=== PATIENT | male | born 1960 | race Caucasian/White ===

== ENCOUNTER → 2017-08-19 12:42 | Outpatient (CLI) | payer MEDICARE, MEDICAID, SELFPAY ==
[2017-08-19 14:53] LABS: Free T4 (Free Thyroxine) 1.18 ng/dl (0.76-1.46); Thyroid Stimulating Hormone 1.92 uIU/ml (0.358-3.740)
[2017-08-20 18:10] LABS: Thyroid Peroxidase Antibodies 16 IU/mL (0-34)
[2017-08-23 09:02] LABS: Thyroid Stimulating Immunoglob <0.10 IU/L (0.00-0.55)
== END ==
PROVIDERS: PCP Physician Assistant; Visit Provider Otolaryngology
DX: E01.0 Iodine-deficiency related diffuse (endemic) goiter (principal); E04.9 Nontoxic goiter, unspecified
CPT/HCPCS: 36415; 84439; 84443; 84445; 86376

== ENCOUNTER 2017-08-23 09:00 | Outpatient (RCR) | payer MEDICARE, MEDICAID, SELFPAY | END 2017-08-23 15:00 | disposition home or self-care (01) | LOC: PT 09:00 | PROVIDERS: PCP Family Medicine; Visit Provider Orthopaedic Surgery Adult Reconstructive Orthopaedic Surgery | DX: M75.42 Impingement syndrome of left shoulder (principal) | CPT/HCPCS: 97035; 97110; 97140; 97163 ==

== ENCOUNTER 2018-03-13 09:00 | Outpatient (RCR) | payer MEDICARE, SELFPAY | END 2018-04-04 11:22 | disposition home or self-care (01) | LOC: PT.CARL 09:00 | PROVIDERS: Visit Provider Orthopaedic Surgery Adult Reconstructive Orthopaedic Surgery | DX: Z96.611 Presence of right artificial shoulder joint (principal) | CPT/HCPCS: 97010; 97014; 97033; 97110; 97140; 97163; 97164; G0283 ==

== ENCOUNTER 2018-04-20 08:00 | Outpatient (RCR) | payer MEDICARE, SELFPAY | END 2018-05-15 08:23 | disposition home or self-care (01) | LOC: PT.CARL 08:00 | PROVIDERS: Visit Provider Orthopaedic Surgery Adult Reconstructive Orthopaedic Surgery | DX: M25.511 Pain in right shoulder (principal) | CPT/HCPCS: 97010; 97014; 97033; 97110; 97140; 97163; G0283 ==

== ENCOUNTER 2020-03-04 08:00 | Outpatient (RCR) | payer MEDICARE, SELFPAY | END 2020-03-04 09:00 | disposition home or self-care (01) | LOC: OT 08:00 | PROVIDERS: PCP Physician Assistant; Visit Provider Orthopaedic Surgery Adult Reconstructive Orthopaedic Surgery | DX: M75.102 Unspecified rotator cuff tear or rupture of left shoulder, not specified as traumatic (principal) | CPT/HCPCS: 97014; 97110; 97140; 97164; 97165; 97530; G0283 ==

== ENCOUNTER → 2020-05-12 06:40 | Outpatient (CLI) | payer MEDICARE, SELFPAY ==
--- NOTE | 2020-05-12 06:42 | US_ITS ---
APPROVED REPORT Exam Type: Ankle to Brachial Index Spike Machine Heater: RT Theresa(R) Indications Claudication: Bilaterally Rest Pain: Right Current Smoker decreased pulses bilaterally Risk Factors Diabetes Pressures/Indices Right Indices Left Indices Brachial 144.00 mmHg Brachial 131.00 mmHg Low Thigh 158.00 mmHg 1.10 Low Thigh 113.00 mmHg 0.78 Calf 148.00 mmHg 1.03 Calf 128.00 mmHg 0.89 Ankle(PT) 158.00 mmHg 1.10 Ankle(PT) 130.00 mmHg 0.90 Ankle(DP) 141.00 mmHg 0.98 Ankle(DP) 124.00 mmHg 0.86 Digit 132.00 mmHg 0.92 Digit 90.00 mmHg 0.63 Findings RT BROOK=1.1 LT BROOK=0.9 RT TBI=0.9 LT TBI=0.63 Diminished pulse on the left. Normal waveforms bilaterally Conclusion RT BROOK=1.1 LT BROOK=0.9 RT TBI=0.9 LT TBI=0.63 Diminished pulse on the left. Normal waveforms bilaterally Electronically signed by : Vishnu Aldrich MD 05/12/2020 16:06:05
== END ==
PROVIDERS: PCP Physician Assistant; Visit Provider Podiatrist
DX: R09.89 Other specified symptoms and signs involving the circulatory and respiratory systems (principal)
CPT/HCPCS: 93923

== ENCOUNTER → 2020-08-06 16:25 | Outpatient (CLI) | payer MEDICARE, SELFPAY ==
[2020-08-06 17:49] LABS: Alanine Aminotransferase 25 U/L (12-78); Albumin Level 4.3 g/dl (3.5-5.0); Albumin/Globulin Ratio 1.3 (1.1-1.8); Alkaline Phosphatase 74 U/L (38-126); Anion Gap 15.4 mEq/L (5-15); Aspartate Amino Transferase 26 U/L (17-59); Bilirubin,Total 0.7 mg/dl (0.2-1.3); Blood Urea Nitrogen 12 mg/dl (9-20); Calcium 8.8 mg/dl (8.4-10.2); Carbon Dioxide 23 mmol/L (22.0-30.0); Chloride 100 mmol/L (98-107); Chol/HDL Ratio 7.9 (1-3.5); Cholesterol 165 mg/dl (140-200); Estimated Glomerular Filt Rate 86 ml/min (>60); GFR (African American) 104 ML/MIN (>60); Globulin 3.3 g/dL (1.3-3.2); Glucose 388 mg/dl (74-100); HDL Cholesterol 21 mg/dl (40-60); Potassium 4.4 mmoL/L (3.5-5.1); Sodium 134 mmol/L (136-145); Total Protein,Serum 7.6 g/dl (6.3-8.2)
[2020-08-06 17:50] LABS: Basophils # 0.1 K/mm3 (0-0.2); Basophils % 0.8 % (0.1-2.0); Eosinophils # 1.2 K/mm3 (0.0-0.4); Eosinophils % 12.7 % (0.1-12.0); Hemoglobin 16.3 g/dL (14.1-18.0); Lymphocytes # 2.5 K/mm3 (0.7-4.5); Lymphocytes % 25.4 % (10-50); Mean Corpuscular HGB Conc 33.3 g/dL (31.8-35.4); Mean Corpuscular Hemoglobin 29.6 pg (27.0-31.2); Mean Platelet Volume 10.7 fl (7.4-10.4); Monocytes # 0.5 K/mm3 (0.1-1.0); Monocytes % 5.5 % (1.7-9.3); Neutrophils # 5.4 K/mm3 (1.8-7.8); Neutrophils % 55.5 % (37.0-80.0); Platelet Count 220 K/mm3 (142-424); Red Blood Count 5.51 M/mm3 (4.60-6.20); White Blood Count 9.6 K/mm3 (4.8-10.8)
[2020-08-06 18:01] LABS: Direct LDL Cholesterol 40.65 mg/dL (100-129)
[2020-08-06 18:09] LABS: Triglycerides 662 mg/dl (30-150)
[2020-08-06 21:49] LABS: Hemoglobin A1C 11.1 % (4.0-6.0)
== END ==
PROVIDERS: Visit Provider Internal Medicine Adolescent Medicine
DX: E11.65 Type 2 diabetes mellitus with hyperglycemia (principal); Z79.4 Long term (current) use of insulin
CPT/HCPCS: 80053; 80061; 83036; 85025

== ENCOUNTER → 2020-12-09 09:09 | Outpatient (POV) | payer MEDICARE, SELFPAY ==
[2020-12-09 09:45] VITALS: BP 142/75; PULSE 86; RESP 18; O2SAT 95; BMI 31.1
--- NOTE | 2020-12-09 09:55 | HMH.PMCON ---
Assessment and Plan (1) Osteoarthritis of right knee Status: Chronic Category: Medical Code(s): M17.11 - Unilateral primary osteoarthritis, right knee (2) Right knee pain Status: Chronic Category: Medical Code(s): M25.561 - Pain in right knee (3) Low back pain Status: Chronic Category: Medical Code(s): M54.50 - Low back pain, unspecified - Assessment and plan all Dx Assessment and Plan for all problems:: We discussed the patient's options in the clinic today. The patient has tried conservative therapies of physical therapy in the past along with continued home stretching with minimal relief. He has tried injective therapy as well as surgical intervention to his knees. We did discuss the option of spinal cord stimulation versus intrathecal therapy. Patient will review the educational information given to him today regarding spinal cord stimulation versus intrathecal therapy. He will contact the clinic after review of information to just determine a further plan of care. Patient has been instructed to contact the clinic with any concerns before the next appointment. Dr. Chatterjee has reviewed this note and agrees with this plan of care. This note was dictated using voice recognition software and make contain errors or omissions. HPI - Data of Consult Patient: new to practice Consult date: 12/09/20 Requesting Physician: Yani Shea APRN - Consult Narrative Reason for consult: Low back pain with radiation into right knee and leg History of present illness: Mr. Holcomb is a 60 year old male patient reports that he had a fall in 1999 with injury to his right knee. He underwent 5 surgical interventions to his right knee. The patient has seen multiple orthopedic surgeons in [place] as well as [facility] and was diagnosed with RSD. He has significant right knee pain with radiation into his right lower extremity with numbness and tingling. The patient also has chronic low back pain. He reports standing and walking worsen his pain to his low back. He does report a history of herniated disc many years ago with no recent imaging. He did undergo injective therapy in his back in the past with minimal relief. He has had rounds of injections to his right knee as well with no significant relief. The patient continues to have pain to both his back and knee despite conservative therapies. He has tried physical therapy in the past for greater than 6 weeks and continues with home stretching as well as ice and heat therapies. He reports he has tried Aleve as well as ibuprofen with no relief. Patient is currently managed with Percocet 10 mg 1 tablet p.o. 3 times daily as well as pregabalin 200 mg 1 tablet p.o. twice daily. The patient is diabetic but is not on any anticoagulation therapy. Patient was being seen by Dr. Neville for pain management, however says that he was not able to see the same provider when going into the clinic. Patient does take Celebrex as well at this time. He does rate his pain a 7 out of 10. CC: Yani Shea APRN [facility] History I have reviewed the patient's past medical history: Yes Medical History: Reports:: Coronary Artery Disease, Diabetes Mellitus Type 2, Hyperlipidemia, Hypertension *Have you ever received a pneumonia vaccine?: No *Have you received a flu vaccine this season?: No Other Medical History: Reports: Cataracts Laterality Cases: Right: Arthroscopy Knee, Bilateral: Other Other Surgeries: Yes: Cardiac Catheterization, Cholecystectomy, Coronary Stent, Other - *Social History Smoking Status: Current every day smoker Alcohol Intake: never Alcohol Intake Frequency:: other Substance Use Type: denies use *Occupational Status:: unemployed *Travel in the last 8 weeks: None Family Hx:: Hyperlipidemia, Hypertension, Cancer Review of Systems - Review of Systems Review of Systems General: No recent weight changes, no fever, no sleep disturbances Respiratory: No cough, n
== END ==
PROVIDERS: Visit Provider Clinical Nurse Specialist Family Health
DX: M17.11 Unilateral primary osteoarthritis, right knee (principal); M54.50 Low back pain, unspecified
CPT/HCPCS: 99202; G0463

== ENCOUNTER → 2020-12-18 19:05 | Outpatient (CLI) | payer MEDICARE, SELFPAY ==
[2020-12-18 20:04] LABS: Chloride 99 mmol/L (98-107); Potassium 4.9 mmoL/L (3.5-5.1); Sodium 135 mmol/L (136-145)
[2020-12-18 20:07] LABS: Alanine Aminotransferase 33 U/L (12-78); Albumin Level 4.2 g/dl (3.5-5.0); Albumin/Globulin Ratio 1.3 (1.1-1.8); Alkaline Phosphatase 76 U/L (38-126); Anion Gap 14.9 mEq/L (5-15); Aspartate Amino Transferase 34 U/L (17-59); Bilirubin,Total 0.4 mg/dl (0.2-1.3); Blood Urea Nitrogen 9 mg/dl (9-20); Calcium 8.9 mg/dl (8.4-10.2); Carbon Dioxide 26 mmol/L (22.0-30.0); Chol/HDL Ratio 6.6 (1-3.5); Cholesterol 113 mg/dl (140-200); Estimated Glomerular Filt Rate 76 ml/min (>60); GFR (African American) 92 ML/MIN (>60); Globulin 3.3 g/dL (1.3-3.2); Glucose 391 mg/dl (74-100); HDL Cholesterol 17 mg/dl (40-60); Total Protein,Serum 7.5 g/dl (6.3-8.2)
[2020-12-18 20:21] LABS: Triglycerides 555 mg/dl (30-150)
[2020-12-18 20:50] LABS: Hemoglobin A1C 10.8 % (4.0-6.0)
[2020-12-18 21:58] LABS: Direct LDL Cholesterol 35.88 mg/dL (100-129)
== END ==
PROVIDERS: Visit Provider Internal Medicine Adolescent Medicine
DX: E11.40 Type 2 diabetes mellitus with diabetic neuropathy, unspecified (principal); Z79.84 Long term (current) use of oral hypoglycemic drugs
CPT/HCPCS: 80053; 80061; 83036

== ENCOUNTER 2021-01-11 17:08 | Emergency (ER) | payer MEDICARE, SELFPAY ==
[2021-01-11 18:09] VITALS: BP 131/77; PULSE 88; RESP 18; TEMP 36.8; O2SAT 94; BMI 31.1
[2021-01-11 18:27] LABS: POC Glucose,Bedside 276 (70-110)
--- NOTE | 2021-01-11 18:28 | HMH.EDUTC ---
[facility] [place] Disposition Clinical Impression: COPD exacerbation, Viral syndrome Disposition: Home, Self-Care Condition on Discharge: Good Instructions: Preventing the Spread of Coronavirus Discharge Instructions, DI for COVID-19 (Suspected or Confirmed ), Chronic Obstructive Pulmonary Disease Additional Instructions: Drink plenty of fluids. Take tylenol or ibuprofen for pain or fever. Take the medications as directed. Follow up with your regular doctor. GO TO THE ER FOR ANY WORSENING SYMPTOMS Quarantine until you know the results of your covid-19 test. If it is positive, the health department should call you and give you further instructions about your length of Quarantine and other things. Notify your school or workplace of your results and follow their instructions regarding return to work/school. The cough medication (promethazine dm) will make you drowsy, so don't drive or operate heavy machinery after taking it. Prescriptions: Promethazine/Dextromethorphan [Promethazine-Dm Syrup] 5 ml PO Q6HP PRN #240 ml PRN Reason: Cough Transmission Status: Pending to [id number] Amoxicillin/Potassium Clav [Augmentin 875-125 Tablet] 1 tab PO Q12H 10 Days #20 tab Transmission Status: Pending to [id number] Benzonatate [Benzonatate 100mg cap] 100 mg PO TIDP PRN #30 cap PRN Reason: Cough Transmission Status: Pending to [id number] Referrals: Darrick Villela MD [Primary Care Provider] - Time of Disposition: 19:08 Medical Decision Making - Medical Records Medical records reviewed: No: I reviewed the patient's medical records. - Raad Inquiry Pt receiving controlled substance: No Vital Signs: 01/11/21 18:09 Temperature 98.3 F Temperature Source Oral Pulse Rate [Right Brachial] 88 Respiratory Rate 18 Blood Pressure [Right Arm] 131/77 Blood Pressure Mean [Right Arm] 95 Blood Pressure Source [Right Arm] Automatic Cuff Blood Pressure Position [Right Arm] Sitting 02 Sat by Pulse Oximetry 94 L Oxygen Delivery Method Room Air - Lab Data Lab Results 01/11/21 18:19: POC Glucose 276 H Orders (Tests/Meds): ORDERS Category Date Time Status Chest XR 2 view (NOT portable) [XR chest 2V] Stat Exams 01/11/21 18:32 Taken [facility] [place] HPI - General Stated complaint: congestion.SOB,Cough Time Seen by Provider: 01/11/21 18:28 Mode of Arrival: Ambulatory Source of Information: Patient Description of Symptoms (Recalled from Triage Doc. by RN): cough. sob HEENT Symptoms (Recalled from RN notes): No Resp Symptoms (Recalled from RN notes): Yes Skin Symptoms (Recalled from RN notes): No MS Symptoms (Recalled from RN notes): No Functional Status (Recalled from RN notes): yes - History of Present Illness Provider Complaint: He states that he has cough and chest congestion for the past 2 days. He has been exposed to covid-19 by his grandson that lives with him having covid-19. He has had a fever and chills also. - Related Data Home Medications Medication Instructions Recorded Confirmed atorvastatin 80 mg tablet PO 30 Days #30 08/19/17 celecoxib 200 mg capsule PO 30 Days #30 08/19/17 insulin glargine 100 unit/mL (3 SUB-Q 30 Days #15 08/19/17 mL) subcutaneous pen morphine 30 mg tablet,extended PO 30 Days #60 08/19/17 release nitroglycerin 0.4 mg sublingual SUBLINGUAL 10 Days #25 08/19/17 tablet oxycodone-acetaminophen 10 mg-325 PO 30 Days #60 08/19/17 mg tablet tizanidine 4 mg tablet PO 15 Days #30 08/19/17 duloxetine 60 mg capsule,delayed 60 mg PO DAILY 05/01/20 05/01/20 release metformin 1,000 mg tablet 1,000 mg PO BID 05/01/20 05/01/20 Previous Rx's Medication Instructions Recorded ciclopirox 8 % topical solution 1 applic TOPICAL DAILY 90 Days 05/01/20 #6.6 ml Amoxicillin/Potassium Clav 1 tab PO Q12H 10 Days #20 tab 01/11/21 [Augmentin 875-125 Tablet] Benzonatate [Benzonatate 100mg 100 mg PO TIDP PRN #30 cap 01/11/21 cap] P
--- NOTE | 2021-01-11 18:32 | XR_ITS ---
PROCEDURE INFORMATION: Exam: XR Chest Exam date and time: 01/11/2021 6:32 PM Age: 60 years old Clinical indication: Smoker's cough; Prior surgery; Surgery date: 6+ months; Surgery type: Cardiac stents; Additional info: Cough, congestion TECHNIQUE: Imaging protocol: XR of the chest. Views: 2 views. COMPARISON: CR CXR2 CHEST-AP VIEW ONLY 12/25/2014 4:25 AM FINDINGS: Lungs: There is a small nodular opacity projecting in the right upper mid lung zone that measures about 7 mm. There is fullness in the right suprahilar region that is not appreciated on prior. Left lung is grossly clear. Pleural spaces: Unremarkable. No pleural effusion. No pneumothorax. Heart/Mediastinum: Unremarkable. No cardiomegaly. Bones/joints: Unremarkable. IMPRESSION: Indeterminate abnormalities in the right upper lung zone. Recommend CT with contrast to exclude malignancy.
[2021-01-11 19:11] VITALS: BP 131/77; PULSE 88; RESP 18; TEMP 36.8; O2SAT 94
== END 2021-01-11 19:11 | disposition home or self-care (01) ==
PROVIDERS: Emergency Provider Nurse Practitioner Family; PCP Internal Medicine Adolescent Medicine
DX: J44.1 Chronic obstructive pulmonary disease with (acute) exacerbation (principal); I25.10 Atherosclerotic heart disease of native coronary artery without angina pectoris; E11.9 Type 2 diabetes mellitus without complications; E78.5 Hyperlipidemia, unspecified; I10 Essential (primary) hypertension; F17.210 Nicotine dependence, cigarettes, uncomplicated; Z88.5 Allergy status to narcotic agent; Z79.899 Other long term (current) drug therapy
CPT/HCPCS: G0463; 71046; 82962; 96372; 99202

== ENCOUNTER → 2021-02-03 11:48 | Outpatient (CLI) | payer MEDICARE, SELFPAY ==
--- NOTE | 2021-02-03 11:52 | CT_ITS ---
PROCEDURE: CT CHEST WO/W CON CLINCAL INDICATION: COUGH COMPARISON: CR CXR2 CHEST-AP VIEW ONLY from 12/25/2014 CR XR CHEST 2V from 01/11/2021 TECHNIQUE: IV Contrast: 75ml Isovue 370 Axial images obtained with sagittal and coronal reformats. All CT scans at the facility use one or more dose reduction, viz: automated exposure control, ma/kV adjustment per patient size (including targeted exams where dose is matched to indication, i.e. head), or iterative reconstruction technique. FINDINGS: HEART AND MEDIASTINAL STRUCTURES: There are few scattered small mediastinal lymph nodes. Coronary artery calcification or stent noted in the left main coronary artery and RCA. LUNGS AND PLEURAL SPACES: In the right upper lobe, there are areas of cavitation with 3 main areas noted. In the right apex measuring 2.8 x 1.6 cm. Right upper lobe anteriorly at 3.6 x 2.3 cm. Right upper lobe anterior medially measuring 5.3 by 2.1 cm. This latter mention area has the more thickened wall compared to the other areas with small areas of cavitation. There is narrowing of the anterior segmental bronchus in the right upper lobe. Subpleural nodular opacity noted in the right upper lobe laterally at 1.6 x 0.6 cm. There are COPD changes with centrilobular emphysema. Calcified granulomas present in the left lower lobe. Partially calcified nodular area in the left major fissure medially. There is mild generalized bronchial thickening. No pleural effusions BONY STRUCTURES: Unremarkable UPPER ABDOMEN: Fatty liver. Splenomegaly at 15 cm. Mildly prominent periportal lymph nodes incompletely imaged. ADDITIONAL FINDINGS: No other significant abnormalities. IMPRESSION: Cavitating areas in the right upper lobe as described above the largest anterior medially with somewhat thickened wall and smaller areas of central cavitation. These findings may be infectious in nature. Tuberculosis is a consideration. Histoplasmosis and other fungal infections also considered. Neoplasm is not completely excluded. Consider pulmonology consult. Follow-up is suggested to confirm resolution. Centrilobular emphysema with COPD changes and evidence of old granulomatous disease. Fatty liver. Splenomegaly. Mildly prominent periportal lymph nodes incompletely imaged Dictated by: Vishnu Aldrich MD 02/04/2021 09:58 Vishnu Aldrich MD in [place] 02/04/2021 09:58
[2021-02-03 12:24] LABS: Blood Urea Nitrogen 14 mg/dl (9-20); Estimated Glomerular Filt Rate 62 ml/min (>60); GFR (African American) 74 ML/MIN (>60)
== END ==
PROVIDERS: PCP Internal Medicine Adolescent Medicine; Visit Provider Internal Medicine Adolescent Medicine
DX: R05.9 Cough, unspecified (principal)
CPT/HCPCS: 36415; 71270; 82565; 84520; Q9967

== ENCOUNTER → 2021-02-09 16:36 | Outpatient (CLI) | payer MEDICARE, SELFPAY ==
[2021-02-09 17:37] LABS: Basophils # 0.1 K/mm3 (0-0.2); Basophils % 0.5 % (0.1-2.0); Eosinophils # 1.4 K/mm3 (0.0-0.4); Eosinophils % 11.7 % (0.1-12.0); Hematocrit 48.4 % (42.0-52.0); Hemoglobin 16.1 g/dL (14.1-18.0); Lymphocytes # 2.6 K/mm3 (0.7-4.5); Lymphocytes % 22.6 % (10-50); Mean Corpuscular HGB Conc 33.3 g/dL (31.8-35.4); Mean Corpuscular Hemoglobin 31.5 pg (27.0-31.2); Mean Corpuscular Volume 94.6 fl (80-94); Mean Platelet Volume 9.7 fl (7.4-10.4); Monocytes # 0.7 K/mm3 (0.1-1.0); Monocytes % 6.2 % (1.7-9.3); Neutrophils # 6.9 K/mm3 (1.8-7.8); Neutrophils % 59.1 % (37.0-80.0); Platelet Count 208 K/mm3 (142-424); Red Blood Count 5.12 M/mm3 (4.60-6.20); Red Cell Distribution Width 13.9 % (11.5-17.5); White Blood Count 11.6 K/mm3 (4.8-10.8)
[2021-02-09 22:29] LABS: Alanine Aminotransferase 35 U/L (12-78); Albumin Level 4.2 g/dl (3.5-5.0); Albumin/Globulin Ratio 1.4 (1.1-1.8); Alkaline Phosphatase 55 U/L (38-126); Anion Gap 13.4 mEq/L (5-15); Aspartate Amino Transferase 32 U/L (17-59); Bilirubin,Total 0.4 mg/dl (0.2-1.3); Blood Urea Nitrogen 15 mg/dl (9-20); Calcium 8.9 mg/dl (8.4-10.2); Carbon Dioxide 25 mmol/L (22.0-30.0); Chloride 101 mmol/L (98-107); Estimated Glomerular Filt Rate 68 ml/min (>60); GFR (African American) 82 ML/MIN (>60); Globulin 3.1 g/dL (1.3-3.2); Glucose 303 mg/dl (74-100); Potassium 4.4 mmoL/L (3.5-5.1); Sodium 135 mmol/L (136-145); Total Protein,Serum 7.3 g/dl (6.3-8.2)
[2021-02-12 05:13] LABS: QuantiFERON-TB Gold Plus Negative (Negative)
[2021-02-16 13:42] LABS: Cryptococcus Antigen Negative (Negative)
[2021-02-17 06:19] LABS: M003-IgE Aspergillus fumigatus <0.10 kU/L (Class 0)
== END ==
PROVIDERS: Nurse Practitioner Family; Visit Provider Internal Medicine Adolescent Medicine
DX: J18.9 Pneumonia, unspecified organism (principal); J98.4 Other disorders of lung
CPT/HCPCS: 36415; 80053; 85025; 86003; 86480; 86606; 87899

== ENCOUNTER 2021-02-25 07:57 | Outpatient (CLI) | payer MEDICARE, SELFPAY ==
[2021-02-25] VITALS (7 sets, daily range): BP systolic 145–159; BP diastolic 74–82; PULSE 77–84; RESP 16; TEMP 36.6–36.7; O2SAT 94–95
== END 2021-02-25 10:15 | disposition home or self-care (01) ==
PROVIDERS: PCP Internal Medicine Adolescent Medicine; Visit Provider Internal Medicine Adolescent Medicine
DX: U07.1 COVID-19 (principal); Z23 Encounter for immunization
CPT/HCPCS: 96365

== ENCOUNTER 2021-07-19 01:33 | Emergency (ER) | payer MEDICARE, SELFPAY ==
[2021-07-19 01:34] VITALS: BP 166/88; PULSE 80; RESP 18; TEMP 36.8; O2SAT 96; BMI 31.8
[2021-07-19 01:56] VITALS: BP 166/88; PULSE 80; RESP 18; TEMP 36.8; O2SAT 96
--- NOTE | 2021-07-19 02:02 | HMH.EDGENADL ---
ED Disposition Clinical Impression: Neuropathy Diabetic neuropathy Qualifiers: Diabetes mellitus type: type 2 Diabetes mellitus complication detail: diabetic autonomic neuropathy Qualified Code(s): E11.43 - Type 2 diabetes mellitus with diabetic autonomic (poly)neuropathy Disposition: Home, Self-Care Condition on Discharge: Good Instructions: DI for Diabetic Neuropathy Additional Instructions: call pcp in am Referrals: Omer Read MD [Primary Care Provider] - - Critical Care Critical Care Time: No Attestation: On 07/19/21, the high probability of a clinically significant, sudden or life threatening deterioration of the following system(s) required my full and direct attention, intervention and personal management. The time I documented below is in addition to time spent performing reported procedures but includes the following listed in this critical care notation. Medical Decision Making - Medical Records Medical records reviewed: Yes: I reviewed the patient's medical records. - Raad Inquiry Pt receiving controlled substance: No Vital Signs: 07/19/21 01:34 07/19/21 01:56 Temperature 98.3 F 98.3 F Temperature Source Oral Pulse Rate 80 Pulse Rate [Right] 80 Respiratory Rate 18 18 Blood Pressure 166/88 H Blood Pressure [Right Arm] 166/88 H Blood Pressure Mean [Right Arm] 114 02 Sat by Pulse Oximetry 96 - Lab Data Lab results reviewed: Yes: I reviewed the patient's lab results. Orders (Tests/Meds): ED MEDICATIONS Generic Name Dose Route Start Last Admin Trade Name Freq PRN Reason Stop Dose Admin Pregabalin 200 mg 07/19/21 02:00 07/19/21 01:58 Pregabalin 100mg Capsule PO 08/18/21 01:59 200 mg DAILY MARTHA Administration Discontinued Medications Generic Name Dose Route Start Last Admin Trade Name Freq PRN Reason Stop Dose Admin Hydrocodone Bitart/Acetaminophen 1 tab 07/19/21 01:51 07/19/21 01:54 Hydrocodone/Apap 5/325 Mg Tablet PO 07/19/21 01:52 1 tab ONCE ONE Administration Medical Decision Narrative: pt with acute exacerbation of diabetic neuropathy General Adult HPI - General Chief complaint: PAIN Stated complaint: burning in both feet Time Seen by Provider: 07/19/21 01:40 Mode of Arrival: Ambulatory Source of Information: Patient, Relative, Medical Record Limitations: No Limitations Description of Symptoms (Recalled from ER Triage Doc. by RN): pt c/o bilateral foot burning. pt is out of lyrica - History of Present Illness HPI narrative: pt with diabetic neuropathy and does ok with lyrica Onset (ago): day(s) Location: lower extremity Severity: moderate Associated symptoms: denies other symptoms Treatments prior to arrival: none - Related Data Home Medications Medication Instructions Recorded Confirmed atorvastatin 80 mg tablet PO 30 Days #30 08/19/17 celecoxib 200 mg capsule PO 30 Days #30 08/19/17 insulin glargine 100 unit/mL (3 SUB-Q 30 Days #15 08/19/17 mL) subcutaneous pen morphine 30 mg tablet,extended PO 30 Days #60 08/19/17 release nitroglycerin 0.4 mg sublingual SUBLINGUAL 10 Days #25 08/19/17 tablet oxycodone-acetaminophen 10 mg-325 PO 30 Days #60 08/19/17 mg tablet tizanidine 4 mg tablet PO 15 Days #30 08/19/17 duloxetine 60 mg capsule,delayed 60 mg PO DAILY 05/01/20 05/01/20 release metformin 1,000 mg tablet 1,000 mg PO BID 05/01/20 05/01/20 Previous Rx's Medication Instructions Recorded ciclopirox 8 % topical solution 1 applic TOPICAL DAILY 90 Days 05/01/20 #6.6 ml Amoxicillin/Potassium Clav 1 tab PO Q12H 10 Days #20 tab 01/11/21 [Augmentin 875-125 Tablet] Benzonatate [Benzonatate 100mg 100 mg PO TIDP PRN #30 cap 01/11/21 cap] Promethazine/Dextromethorphan 5 ml PO Q6HP PRN #240 ml 01/11/21 [Promethazine-Dm Syrup] Allergies Allergy/AdvReac Type Severity Reaction Status Date / Time aspirin Allergy Unknown Verified 01/11/21 18:09 codeine [CODEINE] Allergy Unk
== END 2021-07-19 02:25 | disposition home or self-care (01) ==
PROVIDERS: Emergency Provider Emergency Medicine; PCP Internal Medicine Adolescent Medicine
DX: E11.42 Type 2 diabetes mellitus with diabetic polyneuropathy (principal); Z79.84 Long term (current) use of oral hypoglycemic drugs; Z79.4 Long term (current) use of insulin; I25.10 Atherosclerotic heart disease of native coronary artery without angina pectoris; I10 Essential (primary) hypertension; E78.5 Hyperlipidemia, unspecified; Z72.0 Tobacco use
CPT/HCPCS: 99283

== ENCOUNTER 2021-08-12 22:22 | Emergency (ER) | payer MEDICARE, SELFPAY ==
[2021-08-12 22:23] VITALS: BP 147/82; PULSE 84; RESP 16; TEMP 36.6; O2SAT 95; BMI 33.9
[2021-08-12 22:30] VITALS: BP 147/82; PULSE 85; O2SAT 96
[2021-08-12 22:55] LABS: Basophils # 0.2 K/mm3 (0-0.2); Basophils % 2.3 % (0.1-2.0); Eosinophils # 1.5 K/mm3 (0.0-0.4); Hematocrit 53.2 % (42.0-52.0); Hemoglobin 17.5 g/dL (14.1-18.0); Lymphocytes # 2.4 K/mm3 (0.7-4.5); Lymphocytes % 27.1 % (10-50); Mean Corpuscular HGB Conc 32.9 g/dL (31.8-35.4); Mean Corpuscular Hemoglobin 31.9 pg (27.0-31.2); Mean Platelet Volume 9.1 fl (7.4-10.4); Monocytes # 0.5 K/mm3 (0.1-1.0); Monocytes % 5.4 % (1.7-9.3); Neutrophils # 4.3 K/mm3 (1.8-7.8); Neutrophils % 48.2 % (37.0-80.0); Platelet Count 244 K/mm3 (142-424); Red Blood Count 5.48 M/mm3 (4.60-6.20); Red Cell Distribution Width 15.7 % (11.5-17.5)
[2021-08-12 22:57] VITALS: BP 150/82; PULSE 83; O2SAT 96
--- NOTE | 2021-08-12 22:59 | HMH.EDWEAK ---
ED Disposition Clinical Impression: Heat exposure Qualifiers: Encounter type: initial encounter Qualified Code(s): T67.9XXA - Effect of heat and light, unspecified, initial encounter Diabetes Qualifiers: Diabetes mellitus type: type 2 Diabetes mellitus senior living insulin use: unspecified senior living insulin use status Diabetes mellitus complication status: with other specified complication Qualified Code(s): E11.69 - Type 2 diabetes mellitus with other specified complication Heat exhaustion Qualifiers: Encounter type: initial encounter Qualified Code(s): T67.5XXA - Heat exhaustion, unspecified, initial encounter Disposition: Home, Self-Care Condition on Discharge: Good Instructions: DI for Heat Exhaustion and Heat Stroke Additional Instructions: fluids and see pcp for follow up Referrals: Omer Read MD [Primary Care Provider] - - Critical Care Critical Care Time: No Attestation: On 08/12/21, the high probability of a clinically significant, sudden or life threatening deterioration of the following system(s) required my full and direct attention, intervention and personal management. The time I documented below is in addition to time spent performing reported procedures but includes the following listed in this critical care notation. Medical Decision Making - Medical Records Medical records reviewed: Yes: I reviewed the patient's medical records. - Raad Inquiry Pt receiving controlled substance: No Vital Signs: 08/12/21 22:23 08/12/21 22:30 08/12/21 22:57 Temperature 97.9 F Temperature Source Oral Pulse Rate 85 83 Pulse Rate [Right] 84 Respiratory Rate 16 Blood Pressure 147/82 H 150/82 H Blood Pressure [Right Arm] 147/82 H Blood Pressure Mean [Right Arm] 103 Blood Pressure Source [Right Arm] Automatic Cuff Blood Pressure Position [Right Arm] Sitting 02 Sat by Pulse Oximetry 95 96 96 Oxygen Delivery Method Room Air 08/12/21 23:28 Temperature Temperature Source Pulse Rate 77 Pulse Rate [Right] Respiratory Rate Blood Pressure 132/74 Blood Pressure [Right Arm] Blood Pressure Mean [Right Arm] Blood Pressure Source [Right Arm] Blood Pressure Position [Right Arm] 02 Sat by Pulse Oximetry 93 L Oxygen Delivery Method - Lab Data Lab results reviewed: Yes: I reviewed the patient's lab results. Lab Results 08/12/21 22:33: WBC 9.0, RBC 5.48, Hgb 17.5, Hct 53.2 H, MCV 97.0 H, MCH 31.9 H, MCHC 32.9, RDW 15.7, Plt Count 244, MPV 9.1, Neut % (Auto) 48.2, Lymph % (Auto) 27.1, [place] % (Auto) 5.4, Eos % (Auto) 17.0 H, Baso % (Auto) 2.3 H, Neut # (Auto) 4.3, Lymph # (Auto) 2.4, [place] # (Auto) 0.5, Eos # (Auto) 1.5 H, Baso # (Auto) 0.2 08/12/21 22:33: Sodium 136, Potassium 3.8, Chloride 100, Carbon Dioxide 30, Anion Gap 9.8, BUN 8 L, Creatinine 0.90, Estimated Creat Clear 123, Estimated GFR 86, Est GFR ( Amer) 103, Glucose 320 H, Calcium 9.1, Total Bilirubin 0.3, AST 29, ALT 28, Alkaline Phosphatase 81, Total Protein 8.2, Albumin 4.2, Globulin 4.0 H, Albumin/Globulin Ratio 1.1 Result diagrams: 08/12/21 22:33 08/12/21 22:33 Orders (Tests/Meds): ED MEDICATIONS Generic Name Dose Route Start Last Admin Trade Name Freq PRN Reason Stop Dose Admin Sodium Chloride 1,000 mls @ 999 mls/hr 08/12/21 23:00 08/12/21 22:48 Sod Chlor 0.9% 1000ml Bag IV 08/13/21 00:00 999 mls/hr .Q1H1M MARTHA Administration Sodium Chloride 1,000 mls @ 999 mls/hr 08/13/21 00:15 08/13/21 00:08 Sod Chlor 0.9% 1000ml Bag IV 08/13/21 01:15 999 mls/hr .Q1H1M MARTHA Administration Sodium Chloride 10 ml 08/12/21 22:46 08/12/21 22:48 Sodium Chloride 0.9% 10ml Flush Syringe IV 09/11/21 22:45 10 ml NEEDED PRN Administration Maintain IV Site Medical Decision Narrative: improved after fluids - prob heat exposure Weakness HPI - General Chief complaint: Weakness Stated complaint: Been in Sun, weakness Time Seen by Provider: 08/12/21 22:59 Mode of Arrival:
[2021-08-12 23:07] LABS: Alanine Aminotransferase 28 U/L (12-78); Albumin Level 4.2 g/dl (3.5-5.0); Albumin/Globulin Ratio 1.1 (1.1-1.8); Alkaline Phosphatase 81 U/L (38-126); Anion Gap 9.8 mEq/L (5-15); Aspartate Amino Transferase 29 U/L (17-59); Bilirubin,Total 0.3 mg/dl (0.2-1.3); Blood Urea Nitrogen 8 mg/dl (9-20); Calcium 9.1 mg/dl (8.4-10.2); Carbon Dioxide 30 mmol/L (22.0-30.0); Chloride 100 mmol/L (98-107); Creatinine Clearance Estimated 123 mL/min (50-200); Estimated Glomerular Filt Rate 86 ml/min (>60); GFR (African American) 103 ML/MIN (>60); Glucose 320 mg/dl (74-100); Potassium 3.8 mmoL/L (3.5-5.1); Sodium 136 mmol/L (136-145); Total Protein,Serum 8.2 g/dl (6.3-8.2)
[2021-08-12 23:28] VITALS: BP 132/74; PULSE 77; O2SAT 93
--- NOTE | 2021-08-13 00:02 | PC.NURSE ---
rounded on pt at this time. resting in bed with daughter at bedside. No new needs
--- NOTE | 2021-08-13 00:42 | PC.NURSE ---
pt up and ambulated to restroom. Advises he feels much better MD at bedside discussing POC
[2021-08-13 01:10] VITALS: BP 153/84; PULSE 84; RESP 16; TEMP 37.2; O2SAT 98
== END 2021-08-13 01:11 | disposition home or self-care (01) ==
PROVIDERS: Emergency Provider Emergency Medicine; PCP Internal Medicine Adolescent Medicine
DX: E11.69 Type 2 diabetes mellitus with other specified complication; T67.5XXA Heat exhaustion, unspecified, initial encounter; Z88.6 Allergy status to analgesic agent; I25.10 Atherosclerotic heart disease of native coronary artery without angina pectoris; E78.5 Hyperlipidemia, unspecified; I10 Essential (primary) hypertension; Z72.0 Tobacco use
CPT/HCPCS: 80053; 85025; 96360; 96361; 99284

== ENCOUNTER 2022-02-04 08:00 | Outpatient (RCR) | payer MEDICARE, OTHER, SELFPAY ==
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
== END 2022-02-23 13:26 | disposition home or self-care (01) ==
LOC: PT.CARL 08:00
PROVIDERS: Visit Provider Internal Medicine Adolescent Medicine
DX: M79.641 Pain in right hand (principal); M25.531 Pain in right wrist
CPT/HCPCS: 97010; 97014; 97018; 97033; 97035; 97110; 97140; 97163; 97164; G0283

== ENCOUNTER 2023-03-14 17:01 | Observation (INO) | payer MEDICARE, SELFPAY ==
[2023-03-14] VITALS (15 sets, daily range): BP systolic 109–141; BP diastolic 66–87; PULSE 52–120; RESP 18–27; TEMP 36.9–37.6; O2SAT 90–95; BMI 29.8; BMI 27.3
--- NOTE | 2023-03-14 17:14 | ECG_ITS ---
APPROVED REPORT Exam: Resting ECG HR:105 bpm ECG Measurements Heart Rate 105 AXES DC 143 P -17 QRSd 102 QRS 75 QT 324 T 61 QTc 385 Conclusion SINUS TACHYCARDIA NONSPECIFIC ST & T-WAVE ABNORMALITY ABNORMAL RHYTHM ECG UNCONFIRMED REPORT Electronically signed by : Darrick Villela MD 03/18/2023 14:50:07
--- NOTE | 2023-03-14 17:19 | CT_ITS ---
PROCEDURE INFORMATION: Exam: CTA Chest With Contrast Exam date and time: 03/14/2023 6:05 PM Age: 62 years old Clinical indication: Pain; Radiating and other: Chest; Additional info: Chest pain radiating into back TECHNIQUE: Imaging protocol: Computed tomographic angiography of the chest with contrast. Exam focused on the arteries. 3D rendering (Not supervised by radiologist): MIP and/or 3D reconstructed images were created by the technologist. Radiation optimization: All CT scans at this facility use at least one of these dose optimization techniques: automated exposure control; mA and/or kV adjustment per patient size (includes targeted exams where dose is matched to clinical indication); or iterative reconstruction. Contrast material: ISOVUE 370; Contrast volume: 70 ml; Contrast route: INTRAVENOUS (IV); COMPARISON: 1. CT CHEST WO/W CON 02/03/2021 1:10 PM 2. CR XR CHEST PORTABLE 03/14/2023 5:49 PM 3. CR XR CHEST 2V 01/11/2021 6:34 PM FINDINGS: Pulmonary arteries: There is fair opacification of the pulmonary arterial tree. No central pulmonary arterial filling defect is seen. Aorta: Unremarkable. No aortic aneurysm. No aortic dissection. Other arteries: Subsegmental vessels are not well evaluated due to technical factors. Lungs: There are scattered areas of emphysema throughout the lungs. Pleural spaces: Unremarkable. No pneumothorax. No pleural effusion. Heart: There is a small pericardial effusion. Coronary arteries: There is mild coronary atherosclerotic disease/calcification although evaluation is limited secondary to the non gated nature of the study. Lymph nodes: There are calcified mediastinal lymph nodes likely reflecting prior granulomatous disease. Spleen: There are multiple calcifications in the spleen most likely reflects small granulomas. Partially visualized upper limits of normal-sized spleen. Bones/joints: Unremarkable. No acute fracture. Soft tissues: There is bilateral gynecomastia. Other findings: Clinical chest Motion artifact mildly limits evaluation. IMPRESSION: 1. No central pulmonary arterial filling defect is seen. Subsegmental vessels are not well evaluated due to technical factors. 2. No dense parenchymal consolidation, pleural effusion, or pneumothorax. COMMENTS: The presence of pulmonary emphysema on CT is an independent risk factor for lung cancer. In the absence of a history or active diagnosis of lung cancer, it is recommended that this patient with emphysema be evaluated for enrollment in a low dose CT lung cancer screening program.
--- NOTE | 2023-03-14 17:19 | XR_ITS ---
PROCEDURE INFORMATION: Exam: XR Chest Exam date and time: 03/14/2023 5:49 PM Age: 62 years old Clinical indication: Pain; Other: Chest; Additional info: Chest pain TECHNIQUE: Imaging protocol: Radiologic exam of the chest. Views: 1 view. COMPARISON: CT CHEST WO/W CON 02/03/2021 1:10 PM FINDINGS: Lungs: No evidence of acute pulmonary disease or infiltrates There is mild prominence of the perihilar lung markings which could be related to crowding. Pleural spaces: No large effusion or pneumothorax. Heart/Mediastinum: No evidence of mediastinal widening or cardiac silhouette enlargement; the mediastinum and heart appear within normal limits for contour and size. Bones/joints: No evidence of acute osseous abnormalities within the visualized portions of the thoracic spine and ribs. Osseous structures appear appropriate for patient age. Other findings: There is a low level of inspiration. IMPRESSION: No dense parenchymal consolidation, pleural effusion, or pneumothorax.
[2023-03-14 17:33] LABS: Basophils % 0.3 % (0.1-2.0); Eosinophils # 0.1 K/mm3 (0.0-0.4); Eosinophils % 0.5 % (0.1-12.0); Hematocrit 54.5 % (42.0-52.0); Lymphocytes # 0.8 K/mm3 (0.7-4.5); Lymphocytes % 5.5 % (10-50); MANUAL DIFFERENTIAL MANUAL DIFFERENTIAL (MANUAL DIFF); Mean Corpuscular HGB Conc 33.2 g/dL (31.8-35.4); Mean Corpuscular Hemoglobin 31.4 pg (27.0-31.2); Mean Corpuscular Volume 94.6 fl (80-94); Monocytes # 0.8 K/mm3 (0.1-1.0); Monocytes % 5.6 % (1.7-9.3); Neutrophils # 12.5 K/mm3 (1.8-7.8); Platelet Count 221 K/mm3 (142-424); Red Blood Count 5.76 M/mm3 (4.60-6.20); Red Cell Distribution Width 14.6 % (11.5-17.5); White Blood Count 14.2 K/mm3 (4.8-10.8)
[2023-03-14 17:38] LABS: Blood Urea Nitrogen 8 mg/dl (9-20); Calcium 8.3 mg/dl (8.4-10.2); Carbon Dioxide 27 mmol/L (22.0-30.0); Chloride 97 mmol/L (98-107); Creatinine Clearance Estimated 107 mL/min (50-200); Estimated Glomerular Filt Rate 75 ml/min (>60); GFR (African American) 91 ML/MIN (>60); Glucose 334 mg/dl (74-100); Sodium 135 mmol/L (136-145)
[2023-03-14 17:40] LABS: Hemoglobin 18.2 g/dL (14.1-18.0)
--- NOTE | 2023-03-14 18:06 | ED_ITS ---
Discharge Plan Disposition Patient Disposition: Home, Self-Care Chief Complaint: Chest Pain Prescriptions Prescriptions: No Action methadone 10 mg tablet 10 mg PO Q8H atorvastatin 80 mg tablet 80 mg PO DAILY Qty: 90 3RF celecoxib 200 mg capsule 200 mg PO DAILY Qty: 90 3RF duloxetine [Cymbalta] 60 mg capsule,delayed release(DR/EC) 60 mg PO DAILY Qty: 90 3RF fenofibrate nanocrystallized 145 mg tablet 145 mg PO DAILY Qty: 90 3RF Soliqua 100/33 100 unit-33 mcg/mL insulin pen 30 unit SQ DAILY Qty: 15 3RF lisinopril 10 mg tablet 10 mg PO DAILY Qty: 90 3RF metformin 1,000 mg tablet 1,000 mg PO BID Qty: 180 3RF nitroglycerin 0.4 mg tablet, sublingual 0.4 mg SUBLINGUAL Q5-15M Qty: 2880 3RF pregabalin 150 mg capsule 150 mg PO Q8H Qty: 90 3RF (DME) pen needle, diabetic [BD Ultra-Fine Mini Pen Needle] 31 gauge x 3/16 needle See Rx Instructions .Route Qty: 100 2RF Rx Instructions: As directed Referrals Follow up/Referrals: Mango Castillo MD [Primary Care Provider] - See instructions Star Ramirez MD [Staff Physician] - See instructions Activity Restrictions/Add. Instructions Additional Instructions/Restrictions: At this time it was felt you are safe to be discharged home. If new or worsening symptoms please do not hesitate to return the emergency department. Please call and schedule an appointment with Dr. Ramirez as soon as you are able. Please take your insulin for better control of your diabetes. Clinical Impressions Clinical Impression: Hyperglycemia, Chest pain Discharge ED Provider: Eduardo Medrano [facility] General Chief Complaint: Chest Pain Stated Complaint: sent by Dr. [facility] GI Time Seen by Provider: 03/14/23 17:05 Mode of Arrival: Ambulatory Source of Information: Patient Limitations: No Limitations Description of Symptoms (Recalled from ER Triage Doc. by RN): Patient reports pain in his neck, chest, and back that started this morning. No injury per patient. Patient seen by this morning and an EKG was performed and was clear. History of Present Illness HPI narrative: Patient is a 62-year-old male with past medical history of coronary artery disease status post stenting, hypertension, hyperlipidemia who presents emergency department for evaluation of chest pain, onset was acute, earlier this afternoon, substernal radiating into his left neck. He presented to his family doctor who referred him to urgent care, urgent care subsequently referred him here. He presents here for continued evaluation. Related Data Home Medications Medication Instructions Recorded Confirmed methadone 10 mg tablet 10 mg PO Q8H 10/06/22 03/14/23 Previous Rx's Medication Instructions Recorded atorvastatin 80 mg tablet 80 mg PO DAILY #90 tabs 10/08/22 celecoxib 200 mg capsule 200 mg PO DAILY #90 caps 10/08/22 duloxetine 60 mg capsule,delayed 60 mg PO DAILY #90 caps 10/08/22 release (Cymbalta) fenofibrate nanocrystallized 145 145 mg PO DAILY #90 tabs 10/08/22 mg tablet insulin glargine 100 30 unit (0.3 mL) SQ DAILY #15 mL 10/08/22 unit-lixisenatide 33 mcg/mL subcutaneous pen (Soliqua 100/33) lisinopril 10 mg tablet 10 mg PO DAILY #90 tabs 10/08/22 metformin 1,000 mg tablet 1,000 mg PO BID #180 tabs 10/08/22 nitroglycerin 0.4 mg sublingual 0.4 mg sublingual Q5-15M #2,880 10/08/22 tablet tabs pregabalin 150 mg capsule 150 mg PO Q8H #90 caps 10/08/22 pen needle, diabetic 31 gauge x #100 ea 01/19/2305/06 (BD Ultra-Fine Mini Pen Needle) Allergies Allergy/AdvReac Type Severity Reaction Status Date / Time aspirin Allergy Unknown Verified 03/14/23 15:16 codeine [CODEINE] Allergy Unknown Verified 03/14/23 15:16 [facility] Disclaimer: The information contained in this section may have been updated after the patient was seen, as this information can be updated by other users. Medical History Chronic pain COPD exacerbation Diabetes Diabetic neuropathy Hyperlipidemia Hypertension Neuropathy Obesity (BMI 30.0-34.9) Varicosities of leg Surgical History H/O hand surgery H/O repair of rotator cuff History of cholecystectomy History of repair of ACL Hx of cataract surgery Family History Mother Diabetes Grandfather Stroke Social History Smoking Status: Current every day smoker second hand exposure: No alcohol intake: never counseling provided: none substance use type: denies use current occupational status: unemployed Travel in the last 8 weeks: None household members: spouse housing: house ROS Obtained: Yes Systems reviewed as appropriate & no additional complaints except as documented Physical Exam General General appearance: alert and in no apparent distress Head Head exam: atraumatic and normocephalic Eye Eye exam: Present PERRL and EOMI ENT ENT exam: Present mucous membranes moist Neck Neck exam: Present normal inspection Chest Chest inspection: Present normal inspection and symmetric chest wall rise Respiratory Respiratory exam: Present normal lung sounds bilaterally; Absent respiratory distress Cardiovascular Cardiovascular exam: Present regular rate and normal rhythm Abdominal Exam Abdominal exam: Present soft; Absent tenderness Extremities Exam Extremities exam: Present normal inspection Neurological Exam Neurological exam: Present alert and oriented X3 Psychiatric Psychiatric exam: Present normal affect Skin Skin exam: Present warm and dry HEART Score HEART Score HEART Score assessment performed?: Yes History (anamnesis): Moderately suspicious ECG: Normal Age: 45-65 years Risk factors: Atherosclerosis history Troponin: </= normal limit HEART Score: 4 Critical Care Critical Care Time Critical Care Time: No Medical Decision Making Raad Inquiry Pt receiving controlled substance: No Vital Signs Vital Signs: 03/14/23 17:14 03/14/23 17:24 03/14/23 18:30 Temperature 99.6 F Temperature Source Oral Pulse Rate 105 H 102 H Pulse Rate [Right Radial] 110 H Respiratory Rate 18 19 Blood Pressure 129/87 Blood Pressure [Right Arm] 141/79 H Blood Pressure Mean [Right Arm] 99 Blood Pressure Source [Right Arm] Automatic Cuff Blood Pressure Position [Right Arm] Supine 02 Sat by Pulse Oximetry 94 L 92 L Oxygen Delivery Method Room Air Room Air 03/14/23 19:00 03/14/23 19:30 03/14/23 20:00 Temperature Temperature Source Pulse Rate 100 H 106 H 102 H Pulse Rate [Right Radial] Respiratory Rate 26 H 26 H 27 H Blood Pressure 119/81 135/82 120/78 Blood Pressure [Right Arm] Blood Pressure Mean [Right Arm] Blood Pressure Source [Right Arm] Blood Pressure Position [Right Arm] 02 Sat by Pulse Oximetry 91 L 92 L 92 L Oxygen Delivery Method 03/14/23 20:30 03/14/23 21:00 Temperature Temperature Source Pulse Rate 100 H 52 L Pulse Rate [Right Radial] Respiratory Rate 25 H 26 H Blood Pressure 127/77 119/73 Blood Pressure [Right Arm] Blood Pressure Mean [Right Arm] Blood Pressure Source [Right Arm] Blood Pressure Position [Right Arm] 02 Sat by Pulse Oximetry 92 L 92 L Oxygen Delivery Method Lab Data Labs: Lab Results 03/14/23 17:17: WBC 14.2 H, RBC 5.76, Hgb 18.2 H, Hct 54.5 H, MCV 94.6 H, MCH 31.4 H, MCHC 33.2, RDW 14.6, Plt Count 221, MPV 9.0, Neut % (Auto) 88.0 H, Lymph % (Auto) 5.5 L, [place] % (Auto) 5.6, Eos % (Auto) 0.5, Baso % (Auto) 0.3, Neut # (Auto) 12.5 H, Lymph # (Auto) 0.8, [place] # (Auto) 0.8, Eos # (Auto) 0.1, Baso # (Auto) 0.0, Total Counted 100, Neutrophils % (Manual) 88 H, Lymphocytes % (Manual) 11, Eosinophils % (Manual) 1, Platelet Estimate Normal, RBC Morphology Normal, Sodium 135 L, Potassium 4.0, Chloride 97 L, Carbon Dioxide 27, Anion Gap 15.0, BUN 8 L, Creatinine 1.00, Estimated Creat Clear 107, Estimated GFR 75, Est GFR ( Amer) 91, Glucose 334 H, Calcium 8.3 L, Troponin I 03/14/23 20:00: Troponin I 0.02 03/14/23 17:17 03/14/23 17:17 Response Orders (Tests/Meds): ED MEDICATIONS Generic Name Dose Route Start Last Admin Trade Name Freq PRN Reason Stop Dose Admin Sodium Chloride 10 ml 03/14/23 17:19 Sodium Chloride 0.9% 10ml Flush Syringe IV 04/13/23 17:18 NEEDED PRN Maintain IV Site Discontinued Medications Generic Name Dose Route Start Last Admin Trade Name Freq PRN Reason Stop Dose Admin Acetaminophen 1,000 mg 03/14/23 19:05 03/14/23 19:32 Acetaminophen 1,000mg/100ml Vial IV 03/14/23 19:06 1,000 mg ONCE ONE Administration Belladonna Alkaloids 60 ml 03/14/23 18:09 03/14/23 18:13 Belladonna Alkaloids 60 Ml Ml PO 03/14/23 18:10 60 ml ONCE ONE Administration Lactated Ringer's 500 mls @ 999 mls/hr 03/14/23 18:10 03/14/23 18:14 Lactated Ringer's 500ml IV 03/14/23 18:40 999 mls/hr .Q31M ONE Administration Iopamidol 70 ml 03/14/23 18:15 03/14/23 18:16 Iopamidol-370 (76%);100ml Bottle IV 03/14/23 18:16 70 ml ONCE ONE Administration Ketorolac Tromethamine 30 mg 03/14/23 19:05 03/14/23 19:31 Ketorolac 30mg/Ml Vial IV 03/14/23 19:06 30 mg ONCE ONE Administration Sodium Chloride 10 ml 03/14/23 18:15 03/14/23 18:16 Sodium Chloride 0.9% 10ml Syr (Rad Only) IV 03/14/23 18:16 10 ml ONCE ONE Administration Sodium Chloride 50 ml 03/14/23 18:15 03/14/23 18:16 0.9 % Sodium Chloride 50 Ml Vial IV 03/14/23 18:16 50 ml ONCE ONE Administration ORDERS Category Date Time Status CT angio chest - dissection Stat Cat Scan 03/14/23 17:19 Completed POCUS Point of Care (ER Only) Stat Exams 03/14/23 18:09 Taken XR chest portable Stat Exams 03/14/23 17:19 Completed Basic Metabolic Panel Stat Lab 03/14/23 17:17 Completed Complete Blood Count Auto Diff Stat Lab 03/14/23 17:17 Completed Troponin I Q3H Lab 03/14/23 20:00 Completed Troponin I Q3H Lab 03/14/23 23:30 Ordered Troponin I Stat Lab 03/14/23 17:17 Completed ECG initial [place] Routine Y 03/14/23 17:14 Completed ECG Data Tracing #1: ECG Narrative: Independently interpreted by me, rate is 105, rhythm is regular, axis is normal, no ST elevation in anatomical contiguous leads, QTc 385. MDM Narrative Medical Decision Narrative: In summary patient is a 62-year-old male with past medical history described above who presents emergency department for evaluation of chest pain. Patient is hemodynamically stable nontoxic-appearing upon arrival, afebrile, tachycardic. Differential diagnosis includes aortic dissection, ACS, among others. Workup will be conducted with hematologic labs, serial troponins, CTA chest, EKG. Initial interventions include IV Tylenol. Initial workup reviewed by me, hematologic labs are nonactionable, nonspecific leukocytosis, no actionable electrolyte abnormalities. Patient has elevated glucose which is chr onic, no elevated anion gap. Serial troponins have no significant delta and are nonactionable. Given this patient is appropriate for outpatient management at this time. Patient was given return precautions.
[2023-03-14 18:07] LABS: Eosinophils % 1 % (0-3); Lymphocytes % 11 % (10-50); Neutrophils % 88 % (42-76); Platelet Estimate Normal; RBC Morphology Normal; Total Cells Counted 100
[2023-03-14] MEDS: BELLADONNA ALKALOIDS 60 ML ML PO (18:13)
[2023-03-14] MEDS: RINGERS SOLUTION,LACTATED 500 ML 999 ML IV (18:14)
[2023-03-14] MEDS: SODIUM CHLORIDE 0.9% 10ML SYR (RAD ONLY) 10 ML IV (18:16)
[2023-03-14] MEDS: 0.9 % SODIUM CHLORIDE 50 ML VIAL IV (18:16)
[2023-03-14] MEDS: IOPAMIDOL-370 (76%);100ML BOTTLE 70 ML IV (18:16)
--- NOTE | 2023-03-14 18:33 | PC.NURSE ---
Rounded on pt. Call light remains within reach.
[2023-03-14] MEDS: KETOROLAC 30MG/ML VIAL 30 MG IV (19:31)
[2023-03-14] MEDS: ACETAMINOPHEN 1,000MG/100ML VIAL 1000 MG IV (19:32)
--- NOTE | 2023-03-14 19:33 | PC.NURSE ---
Pt medicated, resting, no other needs at this time, call light within reach
--- NOTE | 2023-03-14 20:46 | PC.NURSE ---
Naga Kuhn RN called lab to check in on the results. They are unable to give any info at this time.
[2023-03-14 21:07] LABS: Troponin I 0.02 ng/ml (0.00-0.034)
--- NOTE | 2023-03-14 21:38 | ECG_ITS ---
APPROVED REPORT Exam: Resting ECG HR:137 bpm ECG Measurements Heart Rate 137 AXES QRSd 101 QRS 80 QT 297 T 29 QTc 377 Conclusion ATRIAL FIBRILLATION WITH RAPID VENTRICULAR RESPONSE NONSPECIFIC ST & T-WAVE ABNORMALITY ABNORMAL RHYTHM ECG UNCONFIRMED REPORT Electronically signed by : Darrick Villela MD 03/18/2023 14:49:27
--- NOTE | 2023-03-14 21:40 | PC.NURSE ---
Pt HR 140's said he coughed and his his HR went up. EKG performed
--- NOTE | 2023-03-14 21:49 | PC.NURSE ---
paged at this time.
--- NOTE | 2023-03-14 21:50 | PC.NURSE ---
o/p with at this time.
--- NOTE | 2023-03-14 21:51 | PC.NURSE ---
ED doctor on phone with Dr. Ramirez
--- NOTE | 2023-03-14 21:54 | PC.NURSE ---
assisted pt to bathroom, patient given blanket and pillow
--- NOTE | 2023-03-14 21:56 | PC.NURSE ---
I called the household appliance installer, SMagnolia RN, to request a bed for admission to the hospitalist.
--- NOTE | 2023-03-14 21:57 | EXP.HP ---
History of Present Illness *Admission Date: 03/14/23 *Reason for visit:: Chest pain *History of present illness: This is a 62-year-old male with PMHx of coronary artery disease status post stenting, hypertension, IDDM, hyperlipidemia, current smoker, who presented to the emergency department for evaluation of chest pain.History from patient and obtained bedside. Patient reported that pain has been on going for a week, intermittent. However, it got worse and sustained earlier this afternoon, substernal radiating into his left neck. He presented to his family doctor who referred him to urgent care, urgent care subsequently referred him here. He presents here for continued evaluation. Admitted for treatment and management. [facility] Disclaimer: The information contained in this section may have been updated after the patient was seen, as this information can be updated by other users. Medical History Chronic pain COPD exacerbation Diabetes Diabetic neuropathy Hyperlipidemia Hypertension Neuropathy Obesity (BMI 30.0-34.9) Varicosities of leg Surgical History H/O hand surgery H/O repair of rotator cuff History of cholecystectomy History of repair of ACL Hx of cataract surgery Family History Mother Diabetes Grandfather Stroke Social History Smoking Status: Current every day smoker second hand exposure: No alcohol intake: never counseling provided: none substance use type: denies use current occupational status: unemployed Travel in the last 8 weeks: None household members: spouse housing: house Review of Systems Review of Systems Review of systems:: pertinent systems reviewed and negative unless documented below Meds Home Medications and Allergies Home Medications Medication Instructions Recorded Confirmed Type methadone 10 mg tablet 10 mg PO Q8H 10/06/22 03/14/23 History duloxetine 60 mg capsule,delayed 60 mg PO DAILY #90 caps 10/08/22 03/14/23 Rx release (Cymbalta) fenofibrate nanocrystallized 145 145 mg PO DAILY #90 tabs 10/08/22 03/14/23 Rx mg tablet lisinopril 10 mg tablet 10 mg PO DAILY #90 tabs 10/08/22 03/14/23 Rx metformin 1,000 mg tablet 1,000 mg PO BID #180 tabs 10/08/22 03/14/23 Rx nitroglycerin 0.4 mg sublingual 0.4 mg sublingual Q5-15M #2,880 10/08/22 03/14/23 Rx tablet tabs pregabalin 150 mg capsule 150 mg PO Q8H #90 caps 10/08/22 03/14/23 Rx pen needle, diabetic 31 gauge x #100 ea 01/19/23 03/14/23 Rx 3/16 (BD Ultra-Fine Mini Pen Needle) apixaban 5 mg tablet (Eliquis) 5 mg PO BID 30 days #60 tabs 03/15/23 Rx atorvastatin 80 mg tablet 80 mg PO HS 03/15/23 03/15/23 History diltiazem HCl 180 mg 180 mg PO DAILY 30 days #30 caps 03/15/23 Rx capsule,extended release 24 hr insulin glargine 100 35 unit (0.35 mL) SQ DAILY 30 days 03/15/23 Rx unit-lixisenatide 33 mcg/mL #15 mL subcutaneous pen (Soliqua 100/33) nicotine 21 mg/24 hr daily 21 mg transdermal DAILYP PRN 03/15/23 Rx transdermal patch Nicotine Cravings 28 days #28 ea New Prescriptions to Start Prescriptions: apixaban [Eliquis] Omer Read diltiazem HCl Omer Read Soliqua 100/33 Omer Read nicotine Omer Read Allergies Allergy/AdvReac Type Severity Reaction Status Date / Time aspirin Allergy Unknown Verified 03/14/23 15:16 codeine [CODEINE] Allergy Unknown Verified 03/14/23 15:16 Exam Data for Last 24 hours Vital signs and Labs for Last 24 Hours: Temp Pulse Resp BP Pulse Ox O2 Del Method 99.6 F 52 L 26 H 119/73 92 L Room Air 03/14/23 17:14 03/14/23 21:00 03/14/23 21:00 03/14/23 21:00 03/14/23 21:00 03/14/23 18:30 Laboratory Results - last 24 hr 03/14/23 17:17: WBC 14.2 H, RBC 5.76, Hgb 18.2 H, Hct 54.5 H, MCV 94.6 H, MCH 31.4 H, MCHC 33.2, RDW 14.6, Plt Count 221, MPV 9.0, Neut % (Auto) 88.0 H, Lymph % (Auto) 5.5 L, [place] % (Auto) 5.6, Eos % (Auto) 0.5, Baso % (Auto) 0.3, Neut # (Auto) 12.5 H, Lymph # (Auto) 0.8, [place] # (Auto) 0.8, Eos # (Auto) 0.1, Baso # (Auto) 0.0, Total Counted 100, Neutrophils % (Manual) 88 H, Lymphocytes % (Manual) 11, Eosinophils % (Manual) 1, Platelet Estimate Normal, RBC Morphology Normal, Sodium 135 L, Potassium 4.0, Chloride 97 L, Carbon Dioxide 27, Anion Gap 15.0, BUN 8 L, Creatinine 1.00, Estimated Creat Clear 107, Estimated GFR 75, Est GFR ( Amer) 91, Glucose 334 H, Calcium 8.3 L, Troponin I 03/14/23 20:00: Troponin I 0.02 I & O for Last 24 hours: Intake & Output 03/11/23 03/12/23 03/13/23 03/14/23 23:59 23:59 23:59 23:59 Weight 99.79 kg Constitutional Constitutional: mild distress and cooperative *Routine HEENT Exam Head: Present normocephalic and atraumatic Eye: Present EOMI, PERRL and normal accommodation ENT: Present mucous membranes moist *Routine Neck Exam Neck: Present supple, full ROM and trachea midline *Routine Respiratory Exam Respiratory: Present normal respiratory effort, able to speak in complete sentences and symmetric chest movement; Absent accessory muscle use or respiratory distress *Routine Cardiovascular Exam Cardiovascular: Present Normal S1, Normal S2, tachycardia and irregularly irregular *Routine Abdominal Exam Abdominal: Present soft and normoactive bowel sounds; Absent organomegaly or hernia *Routine Rectal Exam Rectal:: deferred *Routine Genitalia Exam Genitalia:: deferred *Routine Extremities Exam Extremities: Present full ROM and pulses intact; Absent cyanosis, clubbing or edema *Routine Skin Exam Skin: Present intact, dry and warm *Routine Neurological Exam Neurological: Present alert, oriented X3, normal reflexes, moving all extremities and normal speech Routine Psychiatric Exam Psychiatric: Present normal thought process, cooperative and good judgment H&P: Result Imaging and Cardiology EKG: Status: image reviewed by me and Preliminary report Chest x-ray: Status: image reviewed by me, Preliminary report and final report CT scan - chest: Status: image reviewed by me, Preliminary report and final report Assessment and Plan *Assessment and plan (1) Atrial fibrillation with RVR: Status: Acute Category: Medical Code(s): I48.91 - Unspecified atrial fibrillation (2) Chest pain: Status: Acute Qualifiers: Chest pain type: unspecified Qualified Code(s): R07.9 - Chest pain, unspecified Category: Medical Code(s): R07.9 - Chest pain, unspecified (3) Coronary artery disease: Status: Acute Qualifiers: Associated angina: with unspecified form of angina Coronary Disease-Associated Artery/Lesion type: unspecified vessel or lesion type [place] vs. transplanted heart: [place] heart Qualified Code(s): I25.119 - Atherosclerotic heart disease of [place] coronary artery with unspecified angina pectoris Category: Medical Code(s): I25.10 - Atherosclerotic heart disease of [place] coronary artery without angina pectoris (4) Hyperglycemia: Status: Acute Category: Medical Code(s): R73.9 - Hyperglycemia, unspecified (5) Diabetic neuropathy: Status: Acute Qualifiers: Diabetes mellitus complication detail: diabetic autonomic neuropathy Diabetes mellitus type: type 2 Qualified Code(s): E11.43 - Type 2 diabetes mellitus with diabetic autonomic (poly)neuropathy Category: Medical Code(s): E11.40 - Type 2 diabetes mellitus with diabetic neuropathy, unspecified (6) Hypertension: Status: Acute Qualifiers: Hypertension type: unspecified Qualified Code(s): I10 - Essential (primary) hypertension Category: Medical Code(s): I10 - Essential (primary) hypertension (7) Current smoker: Status: Acute Category: Social Hx Code(s): F17.200 - Nicotine dependence, unspecified, uncomplicated (8) BRAULIO on CPAP: Status: Acute Category: Medical Code(s): G47.33 - Obstructive sleep apnea (adult) (pediatric) Plan 62-year-old male with PMHx of coronary artery disease status post stenting, hypertension, IDDM, hyperlipidemia, current smoker, who presented to the emergency department for evaluation of chest pain. patient initially arrived asymptomatic, hemodynamically stable. ALl initial work up was negative. Including CTA and CXR of chest. Imaging reviewed. EKG was on SR, and troponin was negative. Patient was ready to be discharged for out patient management, when suddenly started c/o plapitation and tachycardic in the monitor. New EKG showed Afib with RVR. Discussed with ER for admission. Cardiology consulted. Plan as follow: -Atrial fibrillation with RVR. New onset. Admit patient for cardiac telemetry. Dispo stepdown. Patient started on IV Cardizem bolus, then on continuously infusion Cardiology consult. Keep patient n.p.o. after midnight for possible cardiac intervention Monitor for heart rhythm, rate, BP and the rest of the vital signs per unit protocol -Chest pain with history of coronary artery disease status post stent: EKG obtained. No ST changes CTA and chest x-ray negative Monitor for chest pain Nitroglycerin sublingual as needed -Insulin-dependent diabetes with hyperglycemia and neuropathy: Suspect uncontrolled. Obtain A1c in the Resume home insulin Lantus 30 units On the sliding scale Accu-Chek before meal Resume pain management for neuropathy. Patient on Lyrica and methadone. Will confirm with pharmacy prior to resuming -Hypertension: On lisinopril -BRAULIO on CPAP: Monitor for O2 saturation sleep apnea CPAP as needed. Respiratory to assist Currently on 4 L oxygen nasal cannula -Current smoker: On nicotine patch. Combine patient to score high on cardiovascular risk. Encouraged to stop smoking. Education given on cessation Lovenox for DVT prophylaxis. Protonix for GI bleed protection Full code Rounded on patient after nurse practitioner. Personally examined and interviewed patient. Agree with exam findings and care plan as documented.
[2023-03-14] MEDS: dilTIAZem 25MG/5ML VIAL 25 MG IV (22:05)
[2023-03-14] MEDS: dilTIAZem HCL 100 MG in 0.9 % SODIUM CHLORIDE 100 ML IV (22:06)
--- NOTE | 2023-03-14 22:36 | PC.NURSE ---
PT ARRIVED TO FLOOR AT THIS TIME
[2023-03-14] MEDS: PREGABALIN 25MG CAPSULE 150 MG PO (23:07)
[2023-03-14] MEDS: 0.9 % SODIUM CHLORIDE 1000ML 1,000 ML 50 ML IV (23:10)
[2023-03-14] MEDS: MELATONIN 5MG TABLET 10 MG PO (23:41)
[2023-03-15] VITALS (8 sets, daily range): BP systolic 107–139; BP diastolic 59–73; PULSE 80–110; RESP 18–23; TEMP 36.7–37.6; O2SAT 89–95; BMI 29.3
[2023-03-15 00:28] LABS: Troponin I 0.02 ng/ml (0.00-0.034)
--- NOTE | 2023-03-15 04:19 | PC.NURSE ---
Pt admitted to step down overnight. Originally he was in Afib w/ RVR, rates in 150s. Dilt gtt titrated to keep HR < 100. Pt currently still in Afib, but rates have been in 70-90s on Dilt at 5mg/hr. Pt kept NPO after midnight. Uses cpap at home during sleep, couldn't tolerate full face mask so placed on 3L NC. Rested comfortably overnight.
[2023-03-15] MEDS: humaLOG 100 UNITS/ML 3ML VIAL (SSI) SQ ×2 (04:59→11:54)
[2023-03-15] MEDS: dilTIAZem HCL 100 MG in 0.9 % SODIUM CHLORIDE 100 ML IV (05:01)
[2023-03-15 05:55] LABS: POC Glucose,Bedside 320 (70-110)
[2023-03-15 06:49] LABS: Basophils % 0.3 % (0.1-2.0); Eosinophils # 0.2 K/mm3 (0.0-0.4); Eosinophils % 1.4 % (0.1-12.0); Hematocrit 49.8 % (42.0-52.0); Hemoglobin 16.7 g/dL (14.1-18.0); Lymphocytes # 1.8 K/mm3 (0.7-4.5); Lymphocytes % 16.1 % (10-50); Mean Corpuscular HGB Conc 33.6 g/dL (31.8-35.4); Mean Corpuscular Hemoglobin 31.6 pg (27.0-31.2); Mean Corpuscular Volume 94.3 fl (80-94); Mean Platelet Volume 9.4 fl (7.4-10.4); Monocytes # 0.9 K/mm3 (0.1-1.0); Monocytes % 8.2 % (1.7-9.3); Neutrophils # 8.4 K/mm3 (1.8-7.8); Platelet Count 188 K/mm3 (142-424); Red Blood Count 5.29 M/mm3 (4.60-6.20); Red Cell Distribution Width 14.7 % (11.5-17.5); White Blood Count 11.3 K/mm3 (4.8-10.8)
[2023-03-15 07:00] LABS: Alanine Aminotransferase 20 U/L (12-78); Albumin Level 3.6 g/dl (3.5-5.0); Albumin/Globulin Ratio 1.1 (1.1-1.8); Alkaline Phosphatase 55 U/L (38-126); Anion Gap 12.5 mEq/L (5-15); Aspartate Amino Transferase 20 U/L (17-59); Bilirubin,Total 0.9 mg/dl (0.2-1.3); Blood Urea Nitrogen 12 mg/dl (9-20); Calcium 7.9 mg/dl (8.4-10.2); Carbon Dioxide 24 mmol/L (22.0-30.0); Chloride 102 mmol/L (98-107); Creatinine Clearance Estimated 105 mL/min (50-200); Estimated Glomerular Filt Rate 75 ml/min (>60); GFR (African American) 91 ML/MIN (>60); Globulin 3.4 g/dL (1.3-3.2); Glucose 287 mg/dl (74-100); Magnesium 1.8 mg/dl (1.6-2.3); Potassium 3.5 mmoL/L (3.5-5.1); Sodium 135 mmol/L (136-145)
[2023-03-15 07:01] LABS: INR 1.17 (0.9-1.1); Prothrombin Time 12.5 seconds (10.1-12.5)
--- NOTE | 2023-03-15 07:32 | HMH.PHAINT1 ---
Pharmacy Intervention Comments: Home med list verified with patient at bedside and with external pharmacy list.
[2023-03-15] MEDS: ENOXAPARIN 40MG/0.4ML SYRINGE 40 MG SQ (08:51)
[2023-03-15] MEDS: LISINOPRIL 10MG TABLET 10 MG PO (08:51)
[2023-03-15] MEDS: FENOFIBRATE 134MG CAPSULE 134 MG PO (08:51)
[2023-03-15] MEDS: DULOXETINE 30MG CAPSULE.DR 60 MG PO (08:51)
[2023-03-15] MEDS: METHADONE 10MG TABLET 10 MG PO ×2 (09:00→12:07)
[2023-03-15] MEDS: INSULIN GLARGINE 100 UNITS/ML 3ML FLEXPEN 25 UNIT SQ (09:00)
[2023-03-15] MEDS: METFORMIN 500MG TABLET 1000 MG PO (09:00)
--- NOTE | 2023-03-15 09:19 | CA_ITS ---
APPROVED REPORT EXAM: Comprehensive 2D, Doppler, and color-flow Echocardiogram Fruit Thinner: ISABEL Bustos, RVS Ht: 125 ft 4 in Wt: 216lbs BSA: 19.94 BP: 119/73 mmHg Rhythm: Atrial Fibrillation Indications: New A-fib, CAD 2 coronary stents, Smoker, DM, COPD, CP, HLD Echo Enhancing Agent Comments: Poor acoustics due to lung impedance & body habitus. 2D Dimensions IVSd 0.82 cm LVEF (Visual) 28.80 % PWd 0.97 cm LA Volume 96.50 mL LVDd 4.75 cm LA Volume Index 42.90 mL/m2 (M/F) 16-34 LVDs 4.11 cm Left Atrium 3.62 cm M-Mode Dimensions RVDd 2.73 cm (0.9-2.6) LA Diam 4.24 cm (1.9-4.0) LVDd 5.42 cm (3.5-5.7) LVDs 4.21 cm (3.5-5.7) IVSd 1.04 cm (0.6-1.1) PWd 1.08 cm (0.6-1.1) EF (Teich) 44.60% EPSs 1.03 cm FS 22.30% EDV (Teich) 142.50 mL TAPSE 2.73 (<1.7) ESV (Teich) 79.00 mL LV Diastology E Decel Time 157 (160-240 msec) E/A Ratio 1.54 MED A' 10.90 cm/s LAT A' 9.30 cm/s Aortic Valve GARETT Index 1.10 cm2/m2 AoV Peak Nikhil. 114.0 (50-130 cm/s) AO Peak GR. 5.20 mmHg AO Mean GR. 2.60 (<5 mmHg) AO VTI 18.4 (18-25 cm) GARETT (VTI) 2.47 (2.5-4.5 cm2) Mitral Valve MV A Velocity 46.0 (40-130 cm/s) E/A Ratio 1.54 Pulmonary Valve OK End VMAX 151.0 cm/s Left Ventricle The left ventricle is normal size. The left ventricular systolic function is low-normal. There is increased LV wall thickness. There is mild hypokinesis of the basal inferoseptal LV wall. The left ventricular diastolic function is normal. LVEF is 50%. Right Ventricle Right ventricle is mildly dilated. The right ventricular systolic function is normal. Atria Left atrium is mildly dilated. Right atrium is mildly dilated. There is no Doppler evidence of interatrial shunt. Aortic Valve The aortic valve is mildly thickened. There is no aortic valvular stenosis. No aortic regurgitation is present. Mitral Valve The mitral valve leaflets are mildly thickened. No evidence of mitral valve stenosis. Trace mitral regurgitation. Tricuspid Valve The tricuspid valve leaflets are thin and pliable. Trace tricuspid regurgitation. There is insufficient TR jet to estimate RVSP. Pulmonic Valve The pulmonic valve leaflets are thin and pliable. Trace pulmonic regurgitation. Great Vessels The aortic root is not well-visualized. IVC is normal in size and collapses >50% with inspiration. Pericardium There is a small sized, anterior pericardial effusion. The largest pocket measures 0.4 cm in diastole. There are no echo indications of tamponade. Conclusion Low normal LV systolic function (LVEF 50%). Mild hypokinesis of the basal inferoseptal LV wall. Mild RV dilation. No significant valvular stenosis or regurgitation. Small sized, anterior pericardial effusion. The largest pocket measures 0.4 cm in diastole. No echo indications of tamponade. Electronically signed by : Charissa Velazquez MD 03/15/2023 11:29:09
[2023-03-15 09:20] LABS: Hemoglobin A1C 7.9 % (4.0-6.0)
[2023-03-15] MEDS: dilTIAZem HCL 180MG CAP.ER.24H 180 MG PO (09:56)
[2023-03-15 11:40] LABS: POC Glucose,Bedside 303 (70-110)
--- NOTE | 2023-03-15 11:57 | EXP.DC.SUM ---
General Admission date:: 03/14/23 Discharge date: 03/15/23 HPI HPI HPI: This is a 62-year-old male with PMHx of coronary artery disease status post stenting, hypertension, IDDM, hyperlipidemia, current smoker, who presented to the emergency department for evaluation of chest pain.History from patient and obtained bedside. Patient reported that pain has been on going for a week, intermittent. However, it got worse and sustained earlier this afternoon, substernal radiating into his left neck. He presented to his family doctor who referred him to urgent care, urgent care subsequently referred him here. He presents here for continued evaluation. Admitted for treatment and management. Hospital Course Hospital Course Hospital Course: 62-year-old male with PMHx of coronary artery disease status post stenting, hypertension, IDDM, hyperlipidemia, current smoker, who presented to the emergency department for evaluation of chest pain. patient initially arrived asymptomatic, hemodynamically stable. Initial work up was negative. Including CTA and CXR of chest. Imaging reviewed. EKG was on SR, and troponin was negative. Patient was ready to be discharged for out patient management, when suddenly started c/o plapitation and tachycardic in the monitor. New EKG showed Afib with RVR. Discussed with ER for admission. Cardiology consulted. Patient did well during admission. Adjustments made to medication. Rate controlled. Stable for discharge home with further management as an outpatient. Problems addressed as follows: -Atrial fibrillation with RVR. New onset. - Paroxysmal atrial fibrillation with rapid ventricular response -New diagnosis this admission. Initiated on diltiazem drip. Cardioverted with rate control. Continue Cardizem 180 mg daily. Given patient's [id number] = 3, patient agreeable to Eliquis 5 mg twice daily. Advised patient he should follow-up with his primary epoxy coatings installer for outpatient ischemic evaluation. CAD [place] vessel, status post PCI Hypertension Hypercholesterolemia -Details are unclear, patient states he had a stent several years ago, no issues since that time. Denies anginal symptoms here, no ST changes on EKG, 2D echo shows normal EF with no wall motion changes. He is not on aspirin at home due to prior intolerance, he is agreeable to Eliquis for his A-fib. Continue statin. agreeable to follow-up with his primary epoxy coatings installer for stress testing, no indication for heart cath at this time -Insulin-dependent diabetes with hyperglycemia and neuropathy: A1c obtained, control improved from previous. A1c 7.9. Resume Soliqua at discharge, increased to 35 units s every morning. Continue metformin 1000 mg twice daily. Needs further management as an outpatient. Suspect uncontrolled. Resume pain management for neuropathy. Patient on Lyrica and methadone. Resume home regimen at discharge. -BRAULIO on CPAP: Continue CPAP at home. Continues to require oxygen. Discharged with plan for continued oxygen use. -Current smoker: On nicotine patch during admission, Encouraged to stop smoking. Provided with patches at discharge. Spent 30 minutes in discharge counseling, documentation, chart review, and direct care with patient. Exam Data for Last 24 hours Vital signs and Labs for Last 24 Hours: Temp Pulse Resp BP Pulse Ox O2 Del Method O2 Flow Rate 98.1 F 92 H 21 132/64 89 L Nasal Cannula 3 03/15/23 08:00 03/15/23 10:00 03/15/23 10:00 03/15/23 10:00 03/15/23 10:00 03/15/23 11:00 03/15/23 11:00 Laboratory Results - last 24 hr 03/14/23 17:17: WBC 14.2 H, RBC 5.76, Hgb 18.2 H, Hct 54.5 H, MCV 94.6 H, MCH 31.4 H, MCHC 33.2, RDW 14.6, Plt Count 221, MPV 9.0, Neut % (Auto) 88.0 H, Lymph % (Auto) 5.5 L, [place] % (Auto) 5.6, Eos % (Auto) 0.5, Baso % (Auto) 0.3, Neut # (Auto) 12.5 H, Lymph # (Auto) 0.8, [place] # (Auto) 0.8, Eos # (Auto) 0.1, Baso # (Auto) 0.0, Total Counted 100, Neutrophils % (Manual) 88 H, Lymphocytes % (Manual) 11, Eosinophils % (Manual) 1, Platelet Estimate Normal, RBC Morphology Normal, Sodium 135 L, Potassium 4.0, Chloride 97 L, Carbon Dioxide 27, Anion Gap 15.0, BUN 8 L, Creatinine 1.00, Estimated Creat Clear 107, Estimated GFR 75, Est GFR ( Amer) 91, Glucose 334 H, Calcium 8.3 L, Troponin I 03/14/23 20:00: Troponin I 0.02 03/14/23 23:38: Troponin I 0.02 03/15/23 04:58: POC Glucose 320 H* 03/15/23 05:58: WBC 11.3 H, RBC 5.29, Hgb 16.7, Hct 49.8, MCV 94.3 H, MCH 31.6 H, MCHC 33.6, RDW 14.7, Plt Count 188, MPV 9.4, Neut % (Auto) 74.0, Lymph % (Auto) 16.1, Valley % (Auto) 8.2, Eos % (Auto) 1.4, Baso % (Auto) 0.3, Neut # (Auto) 8.4 H, Lymph # (Auto) 1.8, [place] # (Auto) 0.9, Eos # (Auto) 0.2, Baso # (Auto) 0.0, PT 12.5, INR 1.17 H, Sodium 135 L, Potassium 3.5, Chloride 102, Carbon Dioxide 24, Anion Gap 12.5, BUN 12 D, Creatinine 1.00, Estimated Creat Clear 105, Estimated GFR 75, Est GFR ( Amer) 91, Glucose 287 H, Hemoglobin A1c 7.9 H, Calcium 7.9 L, Magnesium 1.8, Total Bilirubin 0.9, AST 20, ALT 20, Alkaline Phosphatase 55, Total Protein 7.0, Albumin 3.6, Globulin 3.4 H, Albumin/Globulin Ratio 1.1 03/15/23 11:01: POC Glucose 303 H* I & O for Last 24 hours: Intake & Output 03/12/23 03/13/23 03/14/23 03/15/23 23:59 23:59 23:59 23:59 Intake Total 366.917 / 366.917 420.500 / 420.500 Output Total 550 / 550 Balance 366.917 / 366.917 -129.500 / -129.500 Weight 91.767 kg 98.3 kg Constitutional Constitutional: no acute distress, average body habitus, chronically ill appearing and cooperative *Routine HEENT Exam Head: Present normocephalic Eye: Present EOMI and PERRL ENT: Present mucous membranes moist *Routine Neck Exam Neck: Present supple; Absent lymphadenopathy *Routine Respiratory Exam Respiratory: Present CTA bilaterally; Absent rhonchi, wheezes or crackles *Routine Cardiovascular Exam Cardiovascular: Present irregularly irregular *Routine Abdominal Exam Abdominal: Present soft and normoactive bowel sounds; Absent tenderness *Routine Extremities Exam Extremities: Absent cyanosis, clubbing or edema *Routine Skin Exam Skin: Present warm; Absent rash *Routine Neurological Exam Neurological: Present alert, oriented X3 and moving all extremities; Absent altered mental status Results Data Completed and Pending Labs on day of discharge: Labs from last 24 hours 03/15/23 03/15/23 03/15/23 11:01 05:58 04:58 WBC 11.3 H RBC 5.29 Hgb 16.7 Hct 49.8 MCV 94.3 H MCH 31.6 H MCHC 33.6 RDW 14.7 Plt Count 188 MPV 9.4 Neut % (Auto) 74.0 Lymph % (Auto) 16.1 Valley % (Auto) 8.2 Eos % (Auto) 1.4 Baso % (Auto) 0.3 Neut # (Auto) 8.4 H Lymph # (Auto) 1.8 Valley # (Auto) 0.9 Eos # (Auto) 0.2 Baso # (Auto) 0.0 Total Counted Neutrophils % (Manual) Lymphocytes % (Manual) Eosinophils % (Manual) Platelet Estimate RBC Morphology PT 12.5 INR 1.17 H Sodium 135 L Potassium 3.5 Chloride 102 Carbon Dioxide 24 Anion Gap 12.5 BUN 12 D Creatinine 1.00 Estimated Creat Clear 105 Estimated GFR 75 Est GFR ( Amer) 91 Glucose 287 H POC Glucose 303 H* 320 H* Hemoglobin A1c 7.9 H Calcium 7.9 L Magnesium 1.8 Total Bilirubin 0.9 AST 20 ALT 20 Alkaline Phosphatase 55 Troponin I Total Protein 7.0 Albumin 3.6 Globulin 3.4 H Albumin/Globulin Ratio 1.1 03/14/23 03/14/23 03/14/23 23:38 20:00 17:17 WBC 14.2 H RBC 5.76 Hgb 18.2 H Hct 54.5 H MCV 94.6 H MCH 31.4 H MCHC 33.2 RDW 14.6 Plt Count 221 MPV 9.0 Neut % (Auto) 88.0 H Lymph % (Auto) 5.5 L Valley % (Auto) 5.6 Eos % (Auto) 0.5 Baso % (Auto) 0.3 Neut # (Auto) 12.5 H Lymph # (Auto) 0.8 [place] # (Auto) 0.8 Eos # (Auto) 0.1 Baso # (Auto) 0.0 Total Counted 100 Neutrophils % (Manual) 88 H Lymphocytes % (Manual) 11 Eosinophils % (Manual) 1 Platelet Estimate Normal RBC Morphology Normal PT INR Sodium 135 L Potassium 4.0 Chloride 97 L Carbon Dioxide 27 Anion Gap 15.0 BUN 8 L Creatinine 1.00 Estimated Creat Clear 107 Estimated GFR 75 Est GFR ( Amer) 91 Glucose 334 H POC Glucose Hemoglobin A1c Calcium 8.3 L Magnesium Total Bilirubin AST ALT Alkaline Phosphatase Troponin I 0.02 0.02 Total Protein Albumin Globulin Albumin/Globulin Ratio DS: Diagnosis Discharge Diagnosis (1) Atrial fibrillation with RVR: Status: Resolved Code(s): I48.91 - Unspecified atrial fibrillation (2) Chest pain: Status: Resolved Code(s): R07.9 - Chest pain, unspecified Qualifiers: Chest pain type: unspecified Qualified Code(s): R07.9 - Chest pain, unspecified (3) Coronary artery disease: Status: Acute Code(s): I25.10 - Atherosclerotic heart disease of [place] coronary artery without angina pectoris Qualifiers: Associated angina: with unspecified form of angina Coronary Disease-Associated Artery/Lesion type: unspecified vessel or lesion type [place] vs. transplanted heart: [place] heart Qualified Code(s): I25.119 - Atherosclerotic heart disease of [place] coronary artery with unspecified angina pectoris (4) Hyperglycemia: Status: Acute Code(s): R73.9 - Hyperglycemia, unspecified (5) Diabetic neuropathy: Status: Acute Code(s): E11.40 - Type 2 diabetes mellitus with diabetic neuropathy, unspecified Qualifiers: Diabetes mellitus complication detail: diabetic autonomic neuropathy Diabetes mellitus type: type 2 Qualified Code(s): E11.43 - Type 2 diabetes mellitus with diabetic autonomic (poly)neuropathy (6) Hypertension: Status: Acute Code(s): I10 - Essential (primary) hypertension Qualifiers: Hypertension type: unspecified Qualified Code(s): I10 - Essential (primary) hypertension (7) Current smoker: Status: Acute Code(s): F17.200 - Nicotine dependence, unspecified, uncomplicated (8) BRAULIO on CPAP: Status: Acute Code(s): G47.33 - Obstructive sleep apnea (adult) (pediatric) Meds Home Medications and Allergies Home Medications Medication Instructions Recorded Confirmed Type methadone 10 mg tablet 10 mg PO Q8H 10/06/22 03/14/23 History duloxetine 60 mg capsule,delayed 60 mg PO DAILY #90 caps 10/08/22 03/14/23 Rx release (Cymbalta) fenofibrate nanocrystallized 145 145 mg PO DAILY #90 tabs 10/08/22 03/14/23 Rx mg tablet lisinopril 10 mg tablet 10 mg PO DAILY #90 tabs 10/08/22 03/14/23 Rx metformin 1,000 mg tablet 1,000 mg PO BID #180 tabs 10/08/22 03/14/23 Rx nitroglycerin 0.4 mg sublingual 0.4 mg sublingual Q5-15M #2,880 10/08/22 03/14/23 Rx tablet tabs pregabalin 150 mg capsule 150 mg PO Q8H #90 caps 10/08/22 03/14/23 Rx pen needle, diabetic 31 gauge x #100 ea 01/19/23 03/14/23 Rx 3/16 (BD Ultra-Fine Mini Pen Needle) apixaban 5 mg tablet (Eliquis) 5 mg PO BID 30 days #60 tabs 03/15/23 Rx atorvastatin 80 mg tablet 80 mg PO HS 03/15/23 03/15/23 History diltiazem HCl 180 mg 180 mg PO DAILY 30 days #30 caps 03/15/23 Rx capsule,extended release 24 hr insulin glargine 100 35 unit (0.35 mL) SQ DAILY 30 days 03/15/23 Rx unit-lixisenatide 33 mcg/mL #15 mL subcutaneous pen (Soliqua 100/33) nicotine 21 mg/24 hr daily 21 mg transdermal DAILYP PRN 03/15/23 Rx transdermal patch Nicotine Cravings 28 days #28 ea New Prescriptions to Start Prescriptions: apimarban [Eliquis] Omer Read diltiazem HCl Omer Read Soliqua 100/33 Omer Read nicotine Omer Read Allergies Allergy/AdvReac Type Severity Reaction Status Date / Time aspirin Allergy Unknown Verified 03/14/23 15:16 codeine [CODEINE] Allergy Unknown Verified 03/14/23 15:16 Discharge Plan Disposition Patient Disposition: Home, Self-Care Condition: Fair Discharge Order Discharge Orders: Discharge Order (Routine); Ordered 03/15/23 Ordered By: Omer Read Follow up Plan Follow up with: Katalina Jiménez MD [Referring] - Enter time for follow up Mango Castillo MD [Primary Care Provider] - 03/22/23 9:30 am Prescriptions/Medication Reconciliation: New Eliquis 5 mg tablet 5 mg PO BID 30 Days Qty: 60 0RF diltiazem HCl 180 mg Capsule,Extended Release 24hr 180 mg PO DAILY 30 Days Qty: 30 0RF nicotine 21 mg/24 hr Patch 24 Hour 21 mg transdermal DAILYP PRN (Reason: Nicotine Cravings) 28 Days Qty: 28 2RF Continued methadone 10 mg tablet 10 mg PO Q8H duloxetine [Cymbalta] 60 mg capsule,delayed release(DR/EC) 60 mg PO DAILY Qty: 90 3RF fenofibrate nanocrystallized 145 mg tablet 145 mg PO DAILY Qty: 90 3RF lisinopril 10 mg tablet 10 mg PO DAILY Qty: 90 3RF metformin 1,000 mg tablet 1,000 mg PO BID Qty: 180 3RF nitroglycerin 0.4 mg tablet, sublingual 0.4 mg SUBLINGUAL Q5-15M Qty: 2880 3RF pregabalin 150 mg capsule 150 mg PO Q8H Qty: 90 3RF (DME) pen needle, diabetic [BD Ultra-Fine Mini Pen Needle] 31 gauge x 3/16 needle See Rx Instructions .Route Qty: 100 2RF Rx Instructions: As directed atorvastatin 80 mg tablet 80 mg PO HS Changed Soliqua 100/33 100 unit-33 mcg/mL insulin pen 35 unit SQ DAILY 30 Days Qty: 15 3RF Discontinued celecoxib 200 mg capsule 200 mg PO DAILY Qty: 90 3RF Problem Reconciliation Problems Reviewed?: Yes Patient Discharge Instructions ACTIVITY: Continue current activity DIET: continue same diet Patient Instructions: DI for Atrial Fibrillation Providers Primary Care Provider: Mango Castillo Admit Provider: Omer Read Attending Provider: Omer Read
[2023-03-15] MEDS: PREGABALIN 50MG CAPSULE 150 MG PO (12:07)
--- NOTE | 2023-03-15 12:41 | EXP.CARD.CON ---
History of Present Illness History of Present Illness Consult date: 03/15/23 Requesting physician: Omer Read Consult reason: atrial fibrillation Chief complaint: A-fib, chest pain History of present illness: 62-year-old white male followed by validation architect in [place] with history of CAD, hypertension, insulin-dependent diabetes mellitus, hypercholesterolemia, obstructive sleep apnea, ongoing tobacco use. Presented to the emergency room last night with complaints of chest pain. Initial workup was completely normal he had actually received his discharge papers to leave but then developed another episode of chest pain. EKG was repeated revealing A-fib with RVR. Patient was given Cardizem bolus and admitted overnight with Cardizem drip. He converted overnight and is in sinus rhythm asymptomatic this morning. Patient states he has felt discomfort like this off and on for quite some time but this was the longest and most severe episode. 2D echo ordered this morning and has returned with low normal EF, approximately 50%, otherwise largely unremarkable. [facility] Disclaimer: The information contained in this section may have been updated after the patient was seen, as this information can be updated by other users. Medical History Chronic pain COPD exacerbation Diabetes Diabetic neuropathy Hyperlipidemia Hypertension Neuropathy Obesity (BMI 30.0-34.9) Varicosities of leg Surgical History H/O hand surgery H/O repair of rotator cuff History of cholecystectomy History of repair of ACL Hx of cataract surgery Family History Mother Diabetes Grandfather Stroke Social History Smoking Status: Current every day smoker second hand exposure: No alcohol intake: never counseling provided: none substance use type: denies use current occupational status: unemployed Travel in the last 8 weeks: None household members: spouse housing: house Review of Systems Constitutional Constitutional: Denies fatigue and Denies weakness Eyes Eyes: Denies loss of vision ENT Ears, Nose, Mouth, and Throat: Denies hearing loss and Denies vertigo *Cardiovascular Cardiovascular: Reports chest pain, Denies dyspnea, Reports irregular heart rhythm and Denies syncope *Respiratory Respiratory: Denies cough and Denies dyspnea *Gastrointestinal Gastrointestinal: Denies change in stool character, Denies nausea and Denies vomiting *Genitourinary Genitourinary: Denies difficulty urinating *Musculoskeletal Musculoskeletal: Denies muscle weakness Integumentary/Breasts Skin/Breast: Denies changing lesions *Neurologic Neurologic: Denies loss of vision, Denies syncope, Denies vertigo and Denies weakness Endocrine Endocrine: Denies fatigue Exam Data for Last 24 hours Vital signs and Labs for Last 24 Hours: Temp Pulse Resp BP Pulse Ox O2 Del Method O2 Flow Rate 98.1 F 92 H 21 132/64 89 L Nasal Cannula 3 03/15/23 08:00 03/15/23 10:00 03/15/23 10:00 03/15/23 10:00 03/15/23 10:00 03/15/23 11:00 03/15/23 11:00 Laboratory Results - last 24 hr 03/14/23 17:17: WBC 14.2 H, RBC 5.76, Hgb 18.2 H, Hct 54.5 H, MCV 94.6 H, MCH 31.4 H, MCHC 33.2, RDW 14.6, Plt Count 221, MPV 9.0, Neut % (Auto) 88.0 H, Lymph % (Auto) 5.5 L, Gem % (Auto) 5.6, Eos % (Auto) 0.5, Baso % (Auto) 0.3, Neut # (Auto) 12.5 H, Lymph # (Auto) 0.8, Gem # (Auto) 0.8, Eos # (Auto) 0.1, Baso # (Auto) 0.0, Total Counted 100, Neutrophils % (Manual) 88 H, Lymphocytes % (Manual) 11, Eosinophils % (Manual) 1, Platelet Estimate Normal, RBC Morphology Normal, Sodium 135 L, Potassium 4.0, Chloride 97 L, Carbon Dioxide 27, Anion Gap 15.0, BUN 8 L, Creatinine 1.00, Estimated Creat Clear 107, Estimated GFR 75, Est GFR ( Amer) 91, Glucose 334 H, Calcium 8.3 L, Troponin I 03/14/23 20:00: Troponin I 0.02 03/14/23 23:38: Troponin I 0.02 03/15/23 04:58: POC Glucose 320 H* 03/15/23 05:58: WBC 11.3 H, RBC 5.29, Hgb 16.7, Hct 49.8, MCV 94.3 H, MCH 31.6 H, MCHC 33.6, RDW 14.7, Plt Count 188, MPV 9.4, Neut % (Auto) 74.0, Lymph % (Auto) 16.1, Gem % (Auto) 8.2, Eos % (Auto) 1.4, Baso % (Auto) 0.3, Neut # (Auto) 8.4 H, Lymph # (Auto) 1.8, Gem # (Auto) 0.9, Eos # (Auto) 0.2, Baso # (Auto) 0.0, PT 12.5, INR 1.17 H, Sodium 135 L, Potassium 3.5, Chloride 102, Carbon Dioxide 24, Anion Gap 12.5, BUN 12 D, Creatinine 1.00, Estimated Creat Clear 105, Estimated GFR 75, Est GFR ( Amer) 91, Glucose 287 H, Hemoglobin A1c 7.9 H, Calcium 7.9 L, Magnesium 1.8, Total Bilirubin 0.9, AST 20, ALT 20, Alkaline Phosphatase 55, Total Protein 7.0, Albumin 3.6, Globulin 3.4 H, Albumin/Globulin Ratio 1.1 03/15/23 11:01: POC Glucose 303 H* I & O for Last 24 hours: Intake & Output 03/12/23 03/13/23 03/14/23 03/15/23 23:59 23:59 23:59 23:59 Intake Total 366.917 / 366.917 420.500 / 420.500 Output Total 550 / 550 Balance 366.917 / 366.917 -129.500 / -129.500 Weight 202 lb 5 oz 216 lb 11.43 oz Constitutional Constitutional: no acute distress and cooperative *Routine HEENT Exam Eye: Present PERRL *Routine Respiratory Exam Respiratory: Present CTA bilaterally; Absent accessory muscle use, wheezes or crackles *Routine Cardiovascular Exam Cardiovascular: Present RRR, Normal S1 and Normal S2; Absent murmur, gallop or rubs *Routine Abdominal Exam Abdominal: Present soft; Absent tenderness *Routine Extremities Exam Extremities: Present pulses intact; Absent cyanosis or edema *Routine Skin Exam Skin: Present intact; Absent erythema or wounds *Routine Neurological Exam Neurological: Present alert and oriented X3 Routine Psychiatric Exam Psychiatric: Present cooperative Meds Home Medications and Allergies Home Medications Medication Instructions Recorded Confirmed Type methadone 10 mg tablet 10 mg PO Q8H 10/06/22 03/14/23 History duloxetine 60 mg capsule,delayed 60 mg PO DAILY #90 caps 10/08/22 03/14/23 Rx release (Cymbalta) fenofibrate nanocrystallized 145 145 mg PO DAILY #90 tabs 10/08/22 03/14/23 Rx mg tablet lisinopril 10 mg tablet 10 mg PO DAILY #90 tabs 10/08/22 03/14/23 Rx metformin 1,000 mg tablet 1,000 mg PO BID #180 tabs 10/08/22 03/14/23 Rx nitroglycerin 0.4 mg sublingual 0.4 mg sublingual Q5-15M #2,880 10/08/22 03/14/23 Rx tablet tabs pregabalin 150 mg capsule 150 mg PO Q8H #90 caps 10/08/22 03/14/23 Rx pen needle, diabetic 31 gauge x #100 ea 01/19/23 03/14/23 Rx 3/16 (BD Ultra-Fine Mini Pen Needle) apixaban 5 mg tablet (Eliquis) 5 mg PO BID 30 days #60 tabs 03/15/23 Rx atorvastatin 80 mg tablet 80 mg PO HS 03/15/23 03/15/23 History diltiazem HCl 180 mg 180 mg PO DAILY 30 days #30 caps 03/15/23 Rx capsule,extended release 24 hr insulin glargine 100 35 unit (0.35 mL) SQ DAILY 30 days 03/15/23 Rx unit-lixisenatide 33 mcg/mL #15 mL subcutaneous pen (Soliqua 100/33) nicotine 21 mg/24 hr daily 21 mg transdermal DAILYP PRN 03/15/23 Rx transdermal patch Nicotine Cravings 28 days #28 ea New Prescriptions to Start Prescriptions: apixaban [Eliquis] Omer Read diltiazem HCl Omer Read Soliqua 100/33 Omer Read nicotine Omer Read Allergies Allergy/AdvReac Type Severity Reaction Status Date / Time aspirin Allergy Unknown Verified 03/14/23 15:16 codeine [CODEINE] Allergy Unknown Verified 03/14/23 15:16 Assessment and Plan *Assessment and plan (1) Atrial fibrillation with RVR: Status: Acute Category: Medical Code(s): I48.91 - Unspecified atrial fibrillation (2) Coronary artery disease: Status: Acute Qualifiers: Coronary Disease-Associated Artery/Lesion type: unspecified vessel or lesion type [place] vs. transplanted heart: [place] heart Associated angina: with unspecified form of angina Qualified Code(s): I25.119 - Atherosclerotic heart disease of [place] coronary artery with unspecified angina pectoris Category: Medical Code(s): I25.10 - Atherosclerotic heart disease of [place] coronary artery without angina pectoris (3) Hypertension: Status: Acute Qualifiers: Hypertension type: unspecified Qualified Code(s): I10 - Essential (primary) hypertension Category: Medical Code(s): I10 - Essential (primary) hypertension (4) Diabetes: Status: Acute Qualifiers: Diabetes mellitus complication status: with other specified complication Diabetes mellitus skilled nursing insulin use: unspecified skilled nursing insulin use status Diabetes mellitus type: type 2 Qualified Code(s): E11.69 - Type 2 diabetes mellitus with other specified complication Category: Medical Code(s): E11.9 - Type 2 diabetes mellitus without complications Plan Paroxysmal atrial fibrillation with rapid ventricular response -New diagnosis this admission -Status post conversion with rate control -Will continue Cardizem CD 180 at discharge -[id number] = 3, patient agreeable to Eliquis 5 mg twice daily. -Advised patient he should follow-up with his primary validation architect for outpatient ischemic evaluation. CAD [place] vessel, status post PCI -Details are unclear, patient states he had a stent several years ago, no issues since that time -Denies anginal symptoms here, no ST changes on EKG, 2D echo shows normal EF with no wall motion changes -He is not on aspirin at home due to prior intolerance, he is agreeable to Eliquis for his A-fib -Continue statin -agreeable to follow-up with his primary validation architect for stress testing, no indication for heart cath at this time Hypertension Insulin-dependent diabetes mellitus Hypercholesterolemia Obstructive sleep apnea -Defer to primary service and outpatient management 03/15: Patient is CV stable for discharge home with plans as outlined above.
--- NOTE | 2023-03-16 11:40 | CARE MANAGER ---
Contacted patient related to hospital discharge. Patient states that he is doing well. He has all his new medications and stopped taking his Celebrex. He denies questions or concerns. PURA Odom
--- OUTSIDE RECORDS SUMMARY | 2023-03-18 06:50 | XMS_ITS | Clinical Summary ---
Author Name Unknown Address [address] [place] [address] [address] [place] [address] Phone Organization [facility] Address [address] [place] [address] Phone Care Team Providers Care Global Sourcing Manager Name Role Phone Unavailable Unavailable Conditions or Problems No information available. Medications No information available. Medications Administered No information available. Allergies, Adverse Reactions, Alerts No information available. Results No information available. Plan of Care No information available. Procedures No information available. Vital Signs No information available. Immunizations No information available. Advance Directives No information available.
== END 2023-03-15 13:45 | disposition home or self-care (01) ==
LOC: UTC 17:07 → ER 17:14 → 2ND 23:05
PROVIDERS: Nurse Practitioner Family; Admitting Provider Internal Medicine Adolescent Medicine; Emergency Provider Emergency Medicine; PCP Family Medicine; Visit Provider Internal Medicine Adolescent Medicine
DX: I48.0 Paroxysmal atrial fibrillation (principal); I25.118 Atherosclerotic heart disease of native coronary artery with other forms of angina pectoris; I10 Essential (primary) hypertension; R07.9 Chest pain, unspecified; R73.9 Hyperglycemia, unspecified; E11.43 Type 2 diabetes mellitus with diabetic autonomic (poly)neuropathy; F17.210 Nicotine dependence, cigarettes, uncomplicated; G47.33 Obstructive sleep apnea (adult) (pediatric); Z79.4 Long term (current) use of insulin; Z79.899 Other long term (current) drug therapy; Z95.5 Presence of coronary angioplasty implant and graft; E78.5 Hyperlipidemia, unspecified; E11.65 Type 2 diabetes mellitus with hyperglycemia
CPT/HCPCS: 36415; 71045; 71275; 80048; 80053; 82962; 83036; 83735; 84484; 85007; 85025; 85610; 93005; 93306; 99285; G0378; J0131; Q9967

== ENCOUNTER 2024-02-03 08:45 | Outpatient (CLI) | payer MEDICARE, SELFPAY ==
[2024-02-03 18:46] LABS: Creatinine,Urine Random 34 mg/dL (Not Estab.); Microalbumin > 190.000 mg/L (0-16.7); Microalbumin/Creatinine Ratio 558.8
== END 2024-02-03 23:59 | disposition home or self-care (01) ==
LOC: LAB.DROPOF 02-04 09:10
PROVIDERS: PCP Family Medicine; Visit Provider Family Medicine
DX: E11.9 Type 2 diabetes mellitus without complications (principal)
CPT/HCPCS: 82043; 82570

== ENCOUNTER 2024-03-15 09:06 | Outpatient (POV) | payer MEDICARE, SELFPAY ==
--- NOTE | 2024-03-15 09:19 | EXP.PAIN.OV ---
HPI Data of Consult Patient: new to practice Consult date: 03/15/24 Requesting Physician: Saundra Brizuela APRN Primary Care Provider: Mango Castillo MD Consult Narrative Reason for consult: Chronic back pain, right knee pain History of present illness: Mr. Holcomb is a 63 year old male who presents today as a new patient. He is a referral from [facility] office. Today he rates his pain a 6 out of 10. He states he has had chronic back pain and right knee pain that is gone on for years and progressively worsened. He does describe it as a aching, sharp sensation that is constant and does interfere with his ability perform activities of daily living such as cooking and cleaning. Patient has tried oral medications, heat and ice and topicals with minimal relief. Patient has had physical therapy in the past that just made his symptoms worse and has also tried chiropractor therapy that made no change. Patient has continued at home stretching exercise for longer than 12 weeks with no additional changes. Patient did have a psychological evaluation with [facility] and was found to be an appropriate candidate of a intrathecal pain pump trial. Patient did complete a pain pump trial on 09/13/2023 with intrathecal fentanyl 25 mcg/mL with 90% improvement in function and and decreased pain. Patient was wanting to proceed forward with the intrathecal implant however Dr. Tello does not do this surgical procedure and so he is here at our office to have the pump implanted and then return to [facility] for pump management. He does state that this has been the first thing that has really worked well for him and does want to get it done as soon as possible. He states that they do typically go to [place], May.Patient is currently prescribed pregabalin and methadone from [facility]. CC: Saundra Brizuela APRN [facility] Disclaimer: The information contained in this section may have been updated after the patient was seen, as this information can be updated by other users. Medical History A-fib Chronic pain Hyperlipidemia Hypertension Diabetes Diabetic neuropathy COPD exacerbation Varicosities of leg Neuropathy Obesity (BMI 30.0-34.9) Surgical History Hx of cataract surgery H/O repair of rotator cuff History of cholecystectomy History of repair of ACL H/O hand surgery Family History Mother Diabetes Grandfather Stroke Social History (Updated 03/15/24 @ 09:28 by Renetta Nicholas RN) Smoking Status: Current every day smoker second hand exposure: No alcohol intake: never counseling provided: none substance use type: denies use current occupational status: unemployed Travel in the last 8 weeks: None household members: spouse housing: house Have you lived/traveled outside US in past 30 days?: No Contact w/someone who lives/traveled outside US past 30 days?: No Exposure to someone with infectious disease in past 14 days?: No Do you have a fever (greater than 100.4 F or 38 C)?: No Have you tested positive for COVID-19: No Exposed to someone with COVID-19 in past 14 days?: No Do you have a sore throat?: No Do you have a cough?: No Do you have any weakness?: No Are you experiencing any nausea/vomitting?: No Do you have any diarrhea?: No Are you experiencing any unusual bleeding?: No Do you have any muscle aches/pain?: No Do you have any abdominal pain?: No Are you experiencing loss of taste or smell?: No Review of Systems Review of Systems Review of systems:: pertinent systems reviewed and negative unless documented below Review of systems (narrative): Review of Systems: General: No recent weight changes, no fever, no sleep disturbances Respiratory: No cough, no shortness of air, no recurring pulmonary infections Cardiovascular/peripheral vascular: No chest pain, no palpitations, no edema, no shortness of breath Gastrointestinal: No new onset incontinence, normal bowel movements reported Genitourinary: No new onset incontinence Musculoskeletal: Chronic back pain, right knee pain Psychiatric: [Normal mood/affect] Neurological: [Denies weakness in extremities], [denies balance issues] Meds Home Medications and Allergies Home Medications ?Medication ?Instructions ?Recorded ?Confirmed ?Type methadone 10 mg tablet 10 mg PO Q8H 10/06/22 03/15/24 History fenofibrate nanocrystallized 145 145 mg PO DAILY #90 tabs 10/08/22 03/15/24 Rx mg tablet pen needle, diabetic 31 gauge x #100 ea 01/19/23 03/15/24 Rx 3/16 (BD Ultra-Fine Mini Pen Needle) atorvastatin 80 mg tablet 80 mg PO HS 03/15/23 03/15/24 History apixaban 5 mg tablet (Eliquis) 5 mg PO BID 30 days #60 tabs 11/14/23 03/15/24 Rx insulin glargine 100 35 unit (0.35 mL) SQ DAILY 30 days 11/14/23 03/15/24 Rx unit-lixisenatide 33 mcg/mL #15 mL subcutaneous pen (Soliqua 100/33) lisinopril 10 mg tablet 10 mg PO DAILY 90 days #90 tabs 11/14/23 03/15/24 Rx nitroglycerin 0.4 mg sublingual 0.4 mg sublingual Q5-15M 30 days 11/14/23 03/15/24 Rx tablet #20 tabs diltiazem HCl 240 mg 240 mg PO QAM 02/03/24 03/15/24 History capsule,extended release 24 hr fluoxetine 10 mg tablet 10 mg PO DAILY #30 tabs 02/03/24 03/15/24 Rx pregabalin 200 mg capsule 200 mg PO TID 02/03/24 03/15/24 History duloxetine 60 mg capsule,delayed 60 mg PO DAILY #90 caps 02/28/24 03/15/24 Rx release (Cymbalta) metformin 1,000 mg tablet 1,000 mg PO BID #180 tabs 02/28/24 03/15/24 Rx New Prescriptions to Start Prescriptions: Allergies Allergy/AdvReac Type Severity Reaction Status Date / Time aspirin Allergy Unknown Verified 02/03/24 08:38 codeine (CODEINE) Allergy Unknown Verified 02/03/24 08:38 Objective Narrative: Physical Exam: General: Alert and oriented x3, no acute distress, pleasant and cooperative Lungs: Respirations even and unlabored, symmetrical chest expansion Eyes: PERRL Musculoskeletal: Flexion and extension of lumbar [spine] somewhat guarded secondary to pain, [antalgic gait noted] Neurological: Speech clear, no gross sensory deficit Additional findings Additional findings: Lumbar spine 5 views 03/13/2014 Findings: No fracture is identified. Mild disc space narrowing at L5-S1. Remaining disc spaces are preserved. Alignment is normal Lumbar spine 5 views x-ray 01/21/2021 findings: No fractures identified. Moderate degenerative disc space narrowing with endplate spurring is noted at L5-S1. Flexion and extension views show no malalignment or instability. Alignment is normal Assessment and Plan *Assessment and plan (1) Chronic pain: Status: Acute Category: Medical Code(s): G89.29 - Other chronic pain (2) Right knee pain: Status: Chronic Category: Medical Code(s): M25.561 - Pain in right knee (3) Low back pain: Status: Chronic Category: Medical Code(s): M54.50 - Low back pain, unspecified (4) Osteoarthritis of right knee: Status: Chronic Category: Medical Code(s): M17.11 - Unilateral primary osteoarthritis, right knee Plan Patient did undergo a intrathecal pump trial with significant improvement in the patient would like to proceed forward with the intrathecal implant. Patient did complete a psychological evaluation and was deemed an appropriate candidate for this device. Risk and benefits have been discussed and they still wish to continue with this plan of care. Patient has tried and failed conservative therapies. Patient does have a signed agreement that if we proceed forward with the intrathecal pump that there will be a decrease in oral pain medications if this is applicable with the overall goal 2-no oral opioids once the intrathecal pain pump is established. Prior to the intrathecal trial patient was on a fixed schedule with his medications and patient has been compliant with his medication regimen at [facility] office. We will submit for the intrathecal pain pump implant under fluoroscopy. Patient will be started per [facility] request of Dilaudid 1 mg/mL with a daily dose of 0.1 mg/day. We will see the patient during their postop recovery initially and have him return to [facility] for management of his pump thereafter. Patient has been instructed to contact the clinic with any concerns before the next appointment. Dr. Chatterjee has reviewed this note and agrees with this plan of care. This note was dictated using voice recognition software and make contain errors or omissions. All injections are used with Lidocaine, Bupivacaine and Depo Medrol. Occasionally urine drug screen is needed to verify patient's compliance with our office pain contract. This is ordered based off specific treatments related to chronic pain with the potential to abuse certain medications.
[2024-03-15 09:27] VITALS: BP 129/68; PULSE 83; RESP 18; O2SAT 98; BMI 31.1
== END 2024-03-15 23:59 | disposition home or self-care (01) ==
LOC: SC.PAIN 09:08
PROVIDERS: PCP Family Medicine; Visit Provider Nurse Practitioner Family
DX: G89.29 Other chronic pain (principal); M25.561 Pain in right knee; M54.50 Low back pain, unspecified; M17.11 Unilateral primary osteoarthritis, right knee; Z73.89 Other problems related to life management difficulty; F17.210 Nicotine dependence, cigarettes, uncomplicated; Z79.01 Long term (current) use of anticoagulants
CPT/HCPCS: 99202; G0463

== ENCOUNTER 2024-06-26 12:49 | Outpatient (CLI) | payer MEDICARE, SELFPAY ==
--- NOTE | 2024-06-26 13:08 | ECG_ITS ---
APPROVED REPORT Exam: Resting ECG HR:88 bpm ECG Measurements Heart Rate 88 AXES RI 143 P 61 QRSd 106 QRS 71 QT 360 T 120 QTc 405 Conclusion SINUS RHYTHM Left atrial abnormality NONSPECIFIC T-WAVE ABNORMALITY BORDERLINE ECG UNCONFIRMED REPORT Electronically signed by : Darrick Villela MD 06/27/2024 08:08:08
[2024-06-26 13:50] LABS: Basophils # 0.1 K/mm3 (0-0.2); Basophils % 0.8 % (0.1-2.0); Eosinophils # 0.9 Kmm3 (0.0-0.4); Eosinophils % 10.3 % (0.1-12.0); Hematocrit 51.1 % (42.0-52.0); Hemoglobin 17.6 g/dL (14.1-18.0); Immature Granulocytes # 0.07 10^3uL; Immature Granulocytes % 0.8 %; Lymphocytes # 2.1 K/mm3 (0.7-4.5); Lymphocytes % 24.6 % (10-50); Mean Corpuscular HGB Conc 34.4 g/dL (31.8-35.4); Mean Corpuscular Hemoglobin 31.7 pg (27.0-31.2); Mean Corpuscular Volume 91.9 fl (80-94); Mean Platelet Volume 10.8 fl (7.4-10.4); Monocytes # 0.6 K/mm3 (0.1-1.0); Neutrophils # 4.8 K/mm3 (1.8-7.8); Neutrophils % 56.5 % (37.0-80.0); Nucleated Red Blood Cells # 0 10^3/uL; Nucleated Red Blood Cells % 0 %; Platelet Count 226 K/mm3 (142-424); Red Blood Count 5.56 M/mm3 (4.60-6.20); Red Cell Distribution Width-SD 47.6 fL; White Blood Count 8.4 K/mm3 (4.8-10.8)
[2024-06-26 14:20] LABS: Chloride 96 mmol/L (98-107); Potassium 4.6 mmoL/L (3.5-5.1); Sodium 129 mmol/L (136-145)
[2024-06-26 14:23] LABS: Anion Gap 13.6 mEq/L (5-15); Blood Urea Nitrogen 11 mg/dl (9-20); Carbon Dioxide 24 mmol/L (22.0-30.0); Estimated Glomerular Filt Rate 97 ml/min (>60); GFR (African American) 117 ML/MIN (>60)
[2024-06-26 21:11] LABS: Glucose 638 mg/dl (74-100)
--- NOTE | 2024-06-27 07:53 | PC.NURSE ---
spoke with dr. floyd regarding critical glucose result that was called to him by lab on 06/26/24. Stated to add hemaglobin a1c on for pt. States to call patient to notify him of elevated glucose, notify pt we will recheck glucose day of surgery if too elevated pt surgery could be cancelled.
[2024-06-27 15:36] LABS: Hemoglobin A1C > 14.0 % (4.0-6.0)
== END 2024-06-26 23:59 | disposition home or self-care (01) ==
PROVIDERS: PCP Family Medicine; Visit Provider Anesthesiology
DX: Z01.818 Encounter for other preprocedural examination (principal)
CPT/HCPCS: 36415; 80048; 83036; 85025; 93005

== ENCOUNTER 2024-11-08 15:00 | Outpatient (CLI) | payer MEDICARE, SELFPAY ==
--- OUTSIDE RECORDS SUMMARY | 2024-11-09 11:47 | XMS_ITS | Encounter Summary ---
Author Organization Healthcare Address [address] [place] [address] Care Team Providers Care Water Mechanic Name Role Phone Gudelia Vidal Primary Care Provider [phone] Darrick Villela MD Primary Care Provider + [phone] Reason for Referral * Consultation (Routine) - Closed Specialty Diagnoses / Procedures Referred By Contac t Referred To Contact Hand Surgery Diagnoses Right hand pain Darrick Villela MD [address] [place] [address] Phone: tel: fax: [facility] [address] [place] [address] Phone: tel: fax: Referral ID Status Reason Start Date Expiration Date V isits Requested Visits Authorized [id number] Closed Specialty Services Required 03/01/2022 08/31/2023 1 1 Encounter Details Date Type Department Care Team (Late st Contact Info) Description 03/01/2022 Community [facility] [address] [place] [address] Darrick Villela MD [facility] [address] [address] Right hand pain (Primary Dx) Social History Tobacco Use Types Packs/Day Years Used Date Smoking Tobacco: Every Day Comments:Smokes 1 pack of ci garettes per day Alcohol Use Standard Drinks/Week Comments No 0 (1 standard drink = 0.6 oz pur e alcohol) Sex and Gender Information Value Date Recorded Sex Assigned at Not on file Legal Sex Male 8:57 PM EDT Gender Identity Not on file Sexual Orientation Not on file documented as of this encounter Plan of Treatment Scheduled Referrals Name Type Priority Associated Diagnoses Order Schedule Ambulatory referral to Hand Surgery Outpatient Referral Routine Right hand pain Expected: 03/01/2022 (Approximate), Expires: 08/30/2023 documented as of this encounter Visit Diagnoses Diagnosis Right hand pain- Primary Pain in soft tissues of limb documented in this encounter Care Teams Water Mechanic Relationship Specialty Start Date End Date Gudelia Vidal PA [address] [place] [address] PCP - General 07/04/20 06/01/22 Darrick Villela MD [address] [place] [address] PCP - General Internal Medicine 06/02/22 documented as of this encounter
--- OUTSIDE RECORDS SUMMARY | 2024-11-09 11:47 | XMS_ITS | Encounter Summary ---
Author Organization Healthcare Address [address] [place] [address] Care Team Providers Care Parts Room Assistant Name Role Phone Gudelia Vidal Primary Care Provider [phone] Darrick Villela MD Primary Care Provider + [phone] Reason for Visit * Reason Comments Med Refill Encounter Details Date Type Department Care Team (Late st Contact Info) Description 03/29/2021 [facility] [address] [place] [address] Ashly Kang, MORTGAGE PROCESSOR [address] [facility] [address] [place] [address] Social History Tobacco Use Types Packs/Day Years [...] as of this encounter Plan of Treatment Not on file documented as of this encounter Visit Diagnoses Not on filedocumented in this encounter Care Teams Parts Room Assistant Relationship Specialty Start Date End Date Gudelia Vidal PA [address] [place] [address] PCP - General 07/04/20 06/01/22 Darrick Villela MD [address] [place] [address] PCP - General Internal Medicine 06/02/22 documented as of this encounter
--- OUTSIDE RECORDS SUMMARY | 2024-11-09 11:47 | XMS_ITS | Encounter Summary ---
Author Organization Healthcare Address [address] [place] [address] Care Team Providers Care District Extension Service Agent Name Role Phone Gudelia Vidal Primary Care Provider [phone] Darrick Villela MD Primary Care Provider + [phone] Reason for Visit * Reason Comments Med Refill Encounter Details Date Type Department Care Team (Late st Contact Info) Description 04/01/2021 [facility] [address] [place] [address] Ashly Kang, AVIATION ORDNANCE OFFICER [address] [facility] [address] [place] [address] Social History Tobacco Use Types [...] on filedocumented in this encounter Care Teams District Extension Service Agent Relationship Specialty Start Date End Date Gudelia Vidal PA [address] [place] [address] PCP - General 07/04/20 06/01/22 Darrick Villela MD [address] [place] [address] PCP - General Internal Medicine 06/02/22 documented as of this encounter
--- OUTSIDE RECORDS SUMMARY | 2024-11-09 11:47 | XMS_ITS | Encounter Summary ---
Author Organization [employer] ([place], [place], [place], [place]) Address [address] [place] [address] Care Team Providers Care Childcare Attendant Name Role Phone Unavailable Primary Care Provider Unavailabl e Reason for Referral * Consultation (Routine) - Closed Specialty Diagnoses / Procedures Referred By Contac t Referred To Contact Psychology / Behavioral Health Diagnoses Chronic pain syndrome Orestes Tello MD [address] [address] [place] [address] Phone: tel: fax: Hellen Crouch, [place] [address] [place] [address] Phone: tel: fax: Referral ID Status Reason Start Date Expiration Date V isits Requested Visits Authorized [id number] Closed Specialty Services Required 12/19/2023 12/18/2024 1 1 Encounter Details Date Type Department Care Team (Late st Contact Info) Description 12/19/2023 Outside Orders [facility] [address] [place] [address] Orestes Tello MD [address] [address] [place] [address] Chronic pain syndrome (Primary Dx) Social History Tobacco Use Types Packs/Day Years Used Date Smoking Tobacco: Never Assessed Food Insecurity Answer Date Recorded Food run out past 12 months Not on file 11/22 Food did not last past 12 months Not on file 12/19/2023 Employment Answer Date Recorded Help finding and keeping a job Not on file 1 Family and Community Support Answer [place] Recorded Help with Day to Day Activities Not on file 12/19/2023 Feeling Lonely or Isolated Not on file 12/18 Educational Attainment Answer Date Ang rded Speak language other than Samoan at home Not on file 12/19/2023 Want help with school or training Not on file 12/19/2023 Substance Use Answer Date Recorded Used prescription meds for non-medical reasons N ot on file 12/19/2023 Used illegal drugs past 12 months Not on file 12/19/2023 Sex and Gender Information Value Date Recorded Sex Assigned at Not on file Legal Sex Male 5:25 PM CDT Gender Identity Not on file Sexual Orientation Not on file documented as of this encounter Plan of Treatment Scheduled Referrals Name Type Priority Associated Diagnoses Order Schedule Ambulatory referral to Psychology Outpatient Referral Routine Chronic pain syndrome Expected: 12/19/2023, Expires: 12/18/2024 documented as of this encounter Visit Diagnoses Diagnosis Chronic pain syndrome- Primary documented in this encounter
--- OUTSIDE RECORDS SUMMARY | 2024-11-09 11:47 | XMS_ITS | Clinical Summary ---
Author Organization [facility] Address [address] [place] [address] Care Team Providers Care Digital Learning Platforms Manager Name Role Phone Mango Castillo MD Primary Care Provider [phone] Allergies Active Allergy Reactions Criticality Noted Date Comments Aspirin GI Intolerance,Other (See Comments),Unknown (See Comments) Low 05/05/2015 GI intolerance Codeine GI Intolerance,Other (See Comments) Low 12/15/2015 GI intolerance Medications metFORMIN (GLUCOPHAGE) 1000 MG tablet Take 1 tablet by mouth Daily With Breakfast. 2 Active Insulin Glargine (Lantus SoloStar) 100 UNIT/ML injection pen Active nitroglycerin (NITROSTAT) 0.[address] 1 tablet under the tongue Every 5 (Five) Minutes As Needed. 4 Active methadone (DOLOPHINE) 5 MG tablet Take 1 tablet by mouth Daily. Active pregabalin (LYRICA) 200 MG capsule Take 1 capsule by mouth 3 (Three) Times a Day. 4 Active atorvastatin (LIPITOR) 80 MG tabletIndications :Coronary artery disease involving chilkoot coronary artery of chilkoot heart without angina pectoris Take 1 tablet by mouth Daily. 90 tablet 3 4 Active Eliquis 5 MG tablet tablet Take 1 tablet by mouth 2 (Two) Times a Day. 60 tablet 3 4 Active dilTIAZem CD (CARDIZEM CD) 240 MG 24 hr capsuleIndication s:Paroxysmal atrial fibrillation Take 1 capsule by mouth Daily. 90 capsule 3 4 Active Active Problems Problem Noted Date Diagnosed Date Abnormal nuclear stress test 01/04/2024 Other fatigue 01/04/2024 Paroxysmal atrial fibrillation 04/08/2023 Assessment & Plan (01/04/2024 11:11 AM EST): He is currently in normal sinus rhythm today. Denies palpitations or recent episodes of A-fib. He stopped taking Eliquis and diltiazem several months ago. We discussed the importance of continuing both medications and he is agreeable to restart. - Restart Eliquis and diltiazem Assessment & Plan (04/08/2023 11:24 AM EST): Patient seen at [facility] for Afib with RVR. He was placed on Diltiazem CD 180mg. In the office today EKG showed Afib T wave abnormality, possible inferior ischemia. Increased Diltiazem CD 240mg daily. Patient to monitor HR and BP at home. Close follow up in [address] Jiménez to discuss further management and intervention. Patient on Metoprolol. Eliquis, and diltiazem. Central sleep apnea 06/10/2022 Assessment & Plan (01/04/2024 11:12 AM EST): He has a history of BRAULIO and is on an ASV machine. He did not bring device chip in today so download unavailable at this time. He reports using his BiPAP every night. Airflow is comfortable. We will check a download at follow-up visit 1 month. - Bring device chip at follow-up visit in 1 month. - Continue BiPAP therapy at current settings Assessment & Plan (04/08/2023 11:22 AM EST): No download today. Patient has his new machine from the [employer]. Patient states he really like the new machine and con not sleep without it. Patient reports improved symptoms on current treatment. Plan to continue current treatment. Patient to call [facility] to register his new machine. Assessment & Plan (06/10/2022 4:22 PM EDT): Benefiting from PAP therapy when he uses it. Has not been using due to recall. Machine is over 5 years old. Patient requesting new one. We will update echo next visit. Carpal tunnel syndrome, right 2022 Overview (05/24/2022): Added automatically from request for surgery [id number] Bronchiectasis without acute exacerbation 2021 Centrilobular emphysema 06/12/2021 Cavitating mass in upper lobe of lung 03/05/2021 Overview (03/05/2021): Added automatically from request for surgery [id number] Coronary artery disease invo lving chilkoot heart s/p stents x2 03/04/2021 Assessment & Plan (01/04/2024 11:15 AM EST): Left heart cath from 2015 showed patent stents and 50-70% proximal RCA stenosis. Patient reports significant fatigue. He experienced similar symptoms of fatigue prior to his stents in 2014 Nuclear stress test was abnormal and showed moderate size inferior scar with surrounding ischemia. We discussed proceeding with left heart cath and patient is agreeable. He understands the risk and benefits -Left heart cath at [facility] - Restart atorvastatin 80 mg once daily. Discussed restarting aspirin but he reports intolerance to aspirin. Assessment & Plan (04/08/2023 11:24 AM EST): 03/25/15 Heart cath patent stents and 50-70% prox RCA Type 2 diabetes mellitus 03/04/2021 Hypertension 03/04/2021 Assessment & Plan (01/04/2024 11:09 AM EST): Hypertension is uncontrolled Medication changes per orders. Dietary sodium restriction. Weight loss. Regular aerobic exercise. Blood pressure will be reassessedin 4 weeks. He stopped taking all medications several months ago. - We will restart diltiazem to 40 once daily - Monitor blood pressure and heart rate closely at home - Follow-up in 1 month to reassess. Assessment & Plan (04/08/2023 11:21 AM EST): Well controlled on current medications. Limit sodium intake. Continue current medication. Assessment & Plan (05/24/2022 9:35 AM EDT): Not at goal. Forgot to take his lisinopril this morning. Treating BRAULIO will likely benefit blood pressure. We will recheck next visit. Should also get better once he restarts using PAP therapy. Arthralgia of knee 12/25/2020 Shoulder pain 12/25/2020 BRAULIO (obstructive sleep apnea) Family History Medical History Relation Name Comments Cancer Brother 1 BLADDER Diabetes Brother 1 Heart disease Brother 1 Kidney disease Brother 1 Cancer Father prostate Heart attack Father Heart disease Father Arthritis Mother Gout Mother Heart disease Mother Stroke Mother No Known Problems Sister Relation Name Status Comments Brother 1 Alive Brother 2 Alive Brother 3 Alive Father (Age 85) Mother (Age 73) Sister Alive Social History Tobacco Use Types Packs/Day Years Used Date Smoking Tobacco: Every Day Cigarettes 0.5 35 Passive Smoke Exposure: Current Smokeless Tobacco: Never Tobacco Cessation:Ready to Q uit: No; Counseling Given: Yes Alcohol Use Standard Drinks/Week Comments No 0 (1 standard drink = 0.6 oz pur e alcohol) AUDIT-C Answer Date Recorded Q1: How often do you have a drink containing alcohol? Never 01/10/2024 Q2: How many drinks containi ng alcohol do you have on a typical day when you are drinking? Patient does not drink Q3: How often do you have si x or more drinks on one occasion? Never 01/10/2024 Abuse Screen Answer Date Recorded Feels Unsafe at Home or Work/School no 01/10/2024 Feels Threatened by Someone no 12/22 Does Anyone Try to Keep You From Having Contact with Others or Doing Things Outside Your Home? no 01/10/2024 Physical Signs of Abuse Present no 01/10/2024 Housing Stability Answer Date Recorded Current Living Arrangements home 12/22 Potentially Unsafe Housing Conditions Not on tony e 01/10/2024 Disabilities Answer Date Recorded Difficulty Concentrating, Remembering or Making Decisions no 01/10/2024 Difficulty Managing Errands Independently no 01/10/2024 Sex and Gender Information Value Date Recorded Sex Assigned at Not on file Legal Sex Male 1:01 PM EDT Gender Identity Not on file Sexual Orientation Not on file Last Filed Vital Signs Vital Sign Reading Time Taken Comments Blood Pressure 125/80 01/10/2024 2:30 PM EST Pulse 80 01/10/2024 2:30 PM EST Temperature 36.3 C (97.3 F) 01/10/2024 9:39 AM EST Respiratory Rate 16 01/10/2024 11:48 AM EST Oxygen Saturation 92% 01/10/2024 2:30 PM EST Inhaled Oxygen Concentration - - Weight 98.2 kg (216 lb 6.4 oz) 01/10/2024 9:38 A M EST Height 182.9 cm (6') 01/10/2024 9:38 AM EST Body Mass Index 29.35 01/10/2024 9:38 AM EST Plan of Treatment Health Maintenance Due Date Last Done Comments DIABETIC EYE EXAM 05/10/1969 DIABETIC FOOT EXAM 05/10/1969 URINE MICROALBUMIN-CREATININE RATIO (uACR) 05/10/1969 Pneumococcal Vaccine 50+ (1 of 2 - PCV) 05/10/1978 TDAP/TD VACCINES (1 - Tdap) 05/10/1978 COLOGUARD 05/10/2004 COLON CANCER SCREENING 5 YEAR SIGMOIDOSCOPY 05/10/2004 COLONOSCOPY 05/10/2004 COLORECTAL CANCER SCREENING 05/10/2004 CT COLONOGRAPHY 05/10/2004 FECAL OCCULT BLOOD TEST 05/10/2004 FIT Testing (1 year) 05/10/2004 ZOSTER VACCINE (1 of 2) 05/10/2009 ANNUAL WELLNESS VISIT 03/04/2021 AAA SCREEN ONCE 05/10/2024 HEMOGLOBIN A1C 07/09/2024 01/10/2024 INFLUENZA VACCINE 09/21/2024 COVID-19 Vaccine ( season) 2024 HEPATITIS C SCREENING Completed 06/06/2017 Medical Devices Implanted Type Area Health And Physical Education Professor Device Identifier Shelf Expiration Date Model / Serial / Lot Heart Stents X2 Description:Around 2015 Procedures Procedure Name Priority Date/Time Associated Diagnosis Comments HEMOGLOBIN A1C STAT 01/10/2024 9:56 AM EST from Last 3 Months or Most Recently Relevant to Health Maintenance Results * (ABNORMAL) Hemoglobin A1c (01/10/2024 9:56 AM EST) Hemoglobin A1C 11.50(H) 4.80 - 5.60 % 01/10/2024 10:36 AM EST [facility] Blood Line / Unknown 01/10/2024 9: 56 AM EST 01/10/2024 10:04 AM EST Narrative [facility] - 01/10/2024 10:36 AM EST Hemoglobin A1C Ranges: Increased Risk for Diabetes 5.7% to 6.4% Diabetes >= 6.5% Diabetic Goal < 7.0% Digna Tariq APRN LAB BLOOD ORDERABLES Final Result [facility]
[address] [place] [address], from Last 3 Months or Most Recently Relevant to Health Maintenance Insurance MEDICARE ADVANTAGE Care Teams Digital Learning Platforms Manager Relationship Specialty Start Date End Date Mango Castillo MD [address] [place] [address] PCP - General Family Medicine 04/05/23
--- OUTSIDE RECORDS SUMMARY | 2024-11-09 11:47 | XMS_ITS | Clinical Summary ---
Author Organization [employer] ([place], [place], [place], [place]) Address [address] [place] [address] Care Team Providers Care Audio Installer Name Role Phone Unavailable Primary Care Provider Unavailabl e Social History Tobacco Use Types Packs/Day Years [...] Date Ang rded Speak language other than Divehi at home Not on file 12/19/2023 Want [...] on file Sexual Orientation Not on file Plan of Treatment Not on file
--- OUTSIDE RECORDS SUMMARY | 2024-11-09 11:47 | XMS_ITS | Referral Summary ---
Author Organization [employer] ([place], [place], [place], [place]) Address [address] [place] [address] Care Team Providers Care Waterway Traffic Checker Name Role Phone Unavailable Primary Care Provider [...] Date Ang rded Speak language other than Occitan at home Not on file 12/19/2023 Want [...]
--- OUTSIDE RECORDS SUMMARY | 2024-11-09 11:47 | XMS_ITS | Clinical Summary ---
Author Organization [facility] Address [address] [place] [address] Care Team Providers Care Shaker Plate Operator Name Role Phone Darrick Villela MD Primary Care Provider [phone] Allergies Active Allergy Reactions Criticality Noted Date Comments Aspirin Other - please docum ent in the comment field Low 05/05/2015 GI intolerance Codeine Other - please docum ent in the comment field Low 12/15/2015 GI intolerance Medications lisinopril 10 MG tablet Take 1 tablet (10 mg total) by mouth 1 (one) time each day. No further refills until f/u apt. 30 tablet 2 1 Active metFORMIN (Glucophage) 1000 MG tablet Take 1,000 mg by mouth 2 (two) times a day. 2 Active morphine ER (Esther) 10 MG 24 hr capsule Take 10 mg by mouth every 12 (twelve) hours. 3 Active pregabalin (Lyrica) 100 MG capsule Take 100 mg by mouth 3 (three) times a day. 2 Active oxyCODONE-acet aminophen (Percocet) 5-325 MG tablet Take 1 tablet by mouth 2 (two) times a day. Active nortriptyline (Pamelor) 25 MG capsule Take 25 mg by mouth every night. 2 Active BD Pen Needle Alisa 2nd Gen 32G X 4 MM misc USE NEEDED DIRECTED 2 Active Soliqua 100-33 UNT-MCG/ML solution pen-injector INJECT 30 UNITS SUBCUTANEOUSLY IN THE MORNING 3 Active fenofibrate (Tricor) 145 MG tablet Take 145 mg by mouth 1 (one) time each day. 2 Active DULoxetine (Cymbalta) [address] capsule Take 60 mg by mouth 1 (one) time each day. 2 Active celecoxib (CeleBREX) 200 MG capsule Take 200 mg by mouth 2 (two) times a day. 2 Active dilTIAZem CD (Cardizem CD) 360 MG 24 hr capsule Take 1 capsule (360 mg) by mouth 1 (one) time each day. 4 Active methadone (Dolophine) 5 MG tablet TAKE 1 TABLET 1 TIME EACH DAY 4 Active Active Problems Problem Noted Date Diagnosed Date Carpal tunnel syndrome, right 2022 Overview (2022): Added automatically from request for surgery [id number] Family History Medical History Relation Name Comments Hypertension Brother 1 Hyperlipidemia Brother 2 Cancer Father Pola Conversions - Other Father Pola Patient' s father is Hyperlipidemia Father Pola Hypertension Father Pola Prostate cancer Father Pola Cardiac disorder Mother Conversions - Other Mother Patient' s mother is Hyperlipidemia Mother Hypertension Sister 1 Hyperlipidemia Sister 2 Relation Name Status Comments Brother 1 Brother 2 Father Pola Mother Sister 1 Sister 2 Social History Tobacco Use Types Packs/Day Years Used Date Smoking Tobacco: Every Day Cigarettes 1 49.7 Started: 02/21/1975 Smokeless Tobacco: Never Comments:Smokes 1 pack of ci garettes per day Alcohol Use Standard Drinks/Week Comments No 0 (1 standard drink = 0.6 oz pur e alcohol) PHQ-2 Answer Date Recorded Patient Health Questionnaire-2 Score 0 04/09/2022 PHQ-2A Answer Date Recorded Patient Health Questionnaire-2 Score 0 04/09/2022 Sex and Gender Information Value Date Recorded Sex Assigned at Not on file Legal Sex Male 8:57 PM EDT Gender Identity Not on file Sexual Orientation Not on file Last Filed Vital Signs Vital Sign Reading Time Taken Comments Blood Pressure 132/76 12/07/2023 9:34 AM EDT Pulse 61 12/07/2023 9:34 AM EDT Temperature 36.8 C (98.3 F) 06/18/2022 10:48 AM EDT Respiratory Rate 12 06/02/2022 10:15 AM EDT Oxygen Saturation 96% 12/07/2023 9:34 AM EDT Inhaled Oxygen Concentration - - Weight 104 kg (230 lb) 12/07/2023 9:34 AM EDT Height 182.9 cm (6') 12/07/2023 9:34 AM EDT Body Mass Index 31.19 12/07/2023 9:34 AM EDT Plan of Treatment Health Maintenance Due Date Last Done Comments [facility]-Medicare Annual Wellness (AWV) 1960 [facility]-/Child/Adol SDOH Screenings 1960 [facility]- SDOH Screenings 05/10/1977 [facility]-Adult SDOH Screenings 05/10/1977 [facility]-DTaP,Tdap,and Td Vaccine s (1 - Tdap) 05/10/1978 [facility]-Pneumococcal Vaccine: 50 + Years (1 of 2 - PCV) 05/10/1978 CT Colonography 05/10/2004 Colonoscopy 05/10/2004 FIT-DNA 05/10/2004 FIT 05/10/2004 FOBT 05/10/2004 Sigmoidoscopy 05/10/2004 [facility]-Colorectal Cancer Screening 05/10/2004 [facility]-Zoster Vaccines (1 of 2) 05/10/2009 [facility]-Lung Cancer Screening 12/09/20222021, 06/01/2021, 03/12/2021 [facility]-Depression Screening 04/09/2023 04/09/2022 [facility]-Abdominal Aortic Aneurys m (AAA) Screening 05/10/2024 [id number]-75 Vaccine ( - 2023- season) 2024 [facility]-Influenza Vaccine (#1) 2024 [facility]-RSV Vaccine: 60+ Years o r (1 - 1-dose 75+ series) 05/10/2034 [facility]-Hepatitis C Screening Completed 06/06/2017 [facility]-Diabetes: Hemoglobin A1C Discontinued 03/08/2019 [facility]-Obesity Intervention Completed 12/07/2023 HPV Vaccines Aged Out No longer eligi ble based on patient's age to complete this topic [facility]-HIB Vaccines Aged Out No longer e ligible based on patient's age to complete this topic [facility]-Hepatitis A Vaccines Aged Out No longer eligible based on patient's age to complete this topic [facility]-IPV Vaccines Aged Out No longer e ligible based on patient's age to complete this topic [facility]-Rotavirus Vaccines Aged Out No lo nger eligible based on patient's age to complete this topic Procedures Procedure Name Priority Date/Time Associated Diagnosis Comments POCT GLYCOSYLATED HEMOGLOBIN (HGB A1C) Routine 03/08/2019 2:08 PM EST HEPATITIS C ANTIBODY W/REFLEX TO HCV QUANT PCR Routine 06/06/2017 1:06 PM EDT from Last 3 Months or Most Recently Relevant to Health Maintenance Results * [place] Hemoglobin A1C (03/08/2019 2:08 PM EST) POCT Hemoglobin A1C 10.9 [facility] 03/08/2019 2:08 PM EST Narrative [facility] - 03/08/2019 2:08 PM EST Resulting Agency - [facility] [[facility]] Historical Provider POINT OF CARE TEST ENTER/DEBI T ORDERABLES Final Result Performing Organization Address City/[facility]/ZIP Co de Phone Number [facility] [address] * Hepatitis C Antibody (06/06/2017 1:06 PM EDT) Pathologist [facility] Hepatitis C Antibody NEGATIVE Reference Range: Negative [facility] 06/06/2017 1:06 PM EDT 06/06/2017 4:32 PM EDT Historical Provider LAB BLOOD ORDERABLES Final R esult [facility] from Last 3 Months or Most Recently Relevant to Health Maintenance Insurance MEDICARE [employer] Care Teams Shaker Plate Operator Relationship Specialty Start Date End Date Darrick Villela MD [address] [place] [address] PCP - General Internal Medicine 06/02/22
--- OUTSIDE RECORDS SUMMARY | 2024-11-09 11:47 | XMS_ITS | Clinical Summary ---
Author Organization [facility] Address [address] [place] [address] Phone Care Team Providers Care Horse Identifier Name Role Phone Unavailable Unavailable Conditions or Problems No information available. Medications No information available. Medications Administered No information available. Allergies, Adverse Reactions, Alerts No information available. Results No information available. Plan of Care No information available. Procedures No information available. Vital Signs No information available. Immunizations No information available. Advance Directives No information available.
== END 2024-11-08 23:59 ==
LOC: LAB.DROPOF 11-09 11:45
PROVIDERS: PCP Family Medicine; Visit Provider Family Medicine
DX: E11.9 Type 2 diabetes mellitus without complications (principal)
CPT/HCPCS: 82043; 82570

== ENCOUNTER 2024-11-23 14:56 | Inpatient (IN) | payer MEDICARE, SELFPAY ==
[2024-11-23] VITALS (12 sets, daily range): BP systolic 119–151; BP diastolic 67–84; PULSE 87–110; RESP 18–33; TEMP 36.6–37.1; O2SAT 91–97; BMI 27.1; BMI 26.6
--- OUTSIDE RECORDS SUMMARY | 2024-11-23 15:06 | XMS_ITS | Clinical Summary ---
Author Organization [facility] Address [address] [place] [address] Phone Care Team Providers Care Pillowcase Sewer Name Role Phone Unavailable Unavailable Conditions or Problems No information available. Medications No information available. Medications Administered No information available. Allergies, Adverse Reactions, Alerts No information available. Results No information available. Plan of Care No information available. Procedures No information available. Vital Signs No information available. Immunizations No information available. Advance Directives No information available.
--- OUTSIDE RECORDS SUMMARY | 2024-11-23 15:06 | XMS_ITS | Clinical Summary ---
Author Organization [facility] Address [address] [place] [address] Care Team Providers Care Sales Account Representative Name Role Phone Mango aCstillo MD Primary Care Provider [phone] Allergies Active Allergy Reactions Criticality Noted Date [...] 80 MG tabletIndications :Coronary artery disease involving zuni coronary artery of zuni heart without angina pectoris Take 1 tablet [...] (04/08/2023 11:24 AM EST): Patient seen at [facility] for Afib with RVR. He was [...] Patient has his new machine from the [employer]. Patient states he really like the new [...] (05/24/2022): Added automatically from request for surgery [id number] Bronchiectasis without acute exacerbation 2021 Centrilobular emphysema 06/12/2021 Cavitating mass in upper lobe of lung 03/05/2021 Overview (03/05/2021): Added automatically from request for surgery [id number] Coronary artery disease invo lving zuni heart s/p stents x2 03/04/2021 Assessment & [...] risk and benefits -Left heart cath at [facility] - Restart atorvastatin 80 mg once daily. [...] Completed 06/06/2017 Medical Devices Implanted Type Area Logistics Supply Officer Device Identifier Shelf Expiration Date Model / Serial / Lot Heart Stents X2 Description:Around 2015 Procedures Procedure Name Priority Date/Time Associated Diagnosis Comments HEMOGLOBIN A1C STAT 01/10/2024 9:56 AM EST from Last 3 Months or Most Recently Relevant to Health Maintenance Results * (ABNORMAL) Hemoglobin A1c (01/10/2024 9:56 AM EST) Hemoglobin A1C 11.50(H) 4.80 - 5.60 % 01/10/2024 10:36 AM EST [facility] Blood Line / Unknown 01/10/2024 9: 56 AM EST 01/10/2024 10:04 AM EST Narrative [facility] - 01/10/2024 10:36 AM EST Hemoglobin A1C Ranges: Increased Risk for Diabetes 5.7% to 6.4% Diabetes >= 6.5% Diabetic Goal < 7.0% Digna Tariq APRN LAB BLOOD ORDERABLES Final Result [facility]
[address] [place] [address], from Last 3 Months or Most Recently Relevant to Health Maintenance Insurance MEDICARE ADVANTAGE Care Teams Sales Account Representative Relationship Specialty Start Date End Date Mango Castillo MD [address] [place] [address] PCP - General Family Medicine 04/05/23
--- OUTSIDE RECORDS SUMMARY | 2024-11-23 15:06 | XMS_ITS | Encounter Summary ---
Author Organization [facility] Address [address] [place] [address] Care Team Providers Care Cook Chili Name Role Phone Gudelia Vidal Primary Care Provider [phone] Darrick Villela MD Primary Care Provider [phone] Reason for Visit * Reason Comments Med Refill Encounter Details Date Type Department Care Team (Late st Contact Info) Description 03/29/2021 [facility] [address] [place] [address] Ashly Kang, INVERFORM MACHINE OPERATOR [address] [place] [address] Social History Tobacco Use Types [...] on filedocumented in this encounter Care Teams Cook Chili Relationship Specialty Start Date End Date Gudelia Vidal PA [address] [place] [address] [place] [address] PCP - General 07/04/20 06/01/22 Darrick Villela MD [address] [place] [address] PCP - General Internal Medicine 06/02/22 documented as of this encounter
--- OUTSIDE RECORDS SUMMARY | 2024-11-23 15:06 | XMS_ITS | Referral Summary ---
Author Organization [employer] ([place], [place], [place], [place]) Address [address] [place] [address] Care Team Providers Care Front End Developer Name Role Phone Unavailable Primary Care Provider [...] Date Ang rded Speak language other than Danish at home Not on file 12/19/2023 Want [...]
--- OUTSIDE RECORDS SUMMARY | 2024-11-23 15:06 | XMS_ITS | Clinical Summary ---
Author Organization [employer] ([place], [place], [place], [place]) Address [address] [place] [address] Care Team Providers Care Dairy Processing Supervisor Name Role Phone Unavailable Primary Care Provider [...] Date Ang rded Speak language other than Congolese at home Not on file 12/19/2023 Want [...]
--- OUTSIDE RECORDS SUMMARY | 2024-11-23 15:06 | XMS_ITS | Encounter Summary ---
Author Organization [employer] ([place] Address [address] [place] [address] Care Team Providers Care Gang Ripsaw Operator Name Role Phone Unavailable Primary Care Provider Unavailabl e Reason for Referral * Consultation (Routine) - Closed Specialty Diagnoses / Procedures Referred By Contac t Referred To Contact Psychology / Behavioral Health Diagnoses Chronic pain syndrome Orestes Tello MD [address] [address] [place] [address] Phone: tel: fax: Hellen Crouch, MS [address] [place] [address] Phone: tel: fax: Referral ID Status Reason Start Date Expiration Date V isits Requested Visits Authorized [id number] Closed Specialty Services Required 12/19/2023 12/18/2024 1 1 Encounter Details Date Type Department Care Team (Late st Contact Info) Description 12/19/2023 Outside Orders [facility] Central Scheduling [address] [place] [address] Orestes Tello MD [address] [address] [place] [address] Chronic pain syndrome (Primary Dx) Social History [...] Date Ang rded Speak language other than Uzbek at home Not on file 12/19/2023 Want [...]
--- OUTSIDE RECORDS SUMMARY | 2024-11-23 15:06 | XMS_ITS | Encounter Summary ---
Author Organization Healthcare Address [address] [place] [address] Care Team Providers Care Avionics Systems Engineer Name Role Phone Gudelia Vidal Primary Care Provider [phone] Darrick Villela MD Primary Care Provider [phone] Reason for Referral * Consultation (Routine) - Closed Specialty Diagnoses / Procedures Referred By Contac t Referred To Contact Hand Surgery Diagnoses Right hand pain Darrick Villela MD [address] [place] [address] Phone: tel: fax: [facility] [address] [place] [address] Phone: tel: fax: Referral ID Status Reason Start Date Expiration Date V isits Requested Visits Authorized [id number] Closed Specialty Services Required 03/01/2022 08/31/2023 1 1 Encounter Details Date Type Department Care Team (Late st Contact Info) Description 03/01/2022 Community [facility] Community Practice [address] [place] [address] Darrick Villela MD Critical access hospital0 [facility] [address] [address] Right hand pain (Primary Dx) Social History [...] limb documented in this encounter Care Teams Avionics Systems Engineer Relationship Specialty Start Date End Date Gudelia Vidal PA [address] [place] [address] PCP - General 07/04/20 06/01/22 Darrick Villela MD [address] [place] [address] PCP - General Internal Medicine 06/02/22 documented as of this encounter
--- OUTSIDE RECORDS SUMMARY | 2024-11-23 15:06 | XMS_ITS | Clinical Summary ---
Author Organization [facility] Address [address] [place] [address] Care Team Providers Care Police Sergeant Precinct Name Role Phone Darrick Villela MD Primary Care Provider [phone] Allergies Active Allergy Reactions Criticality Noted Date [...] (2022): Added automatically from request for surgery [id number] Family History Medical History Relation Name Comments [...] Date Smoking Tobacco: Every Day Cigarettes 1 49.8 Started: 02/21/1975 Smokeless Tobacco: Never Comments:Smokes 1 [...] [facility]-Abdominal Aortic Aneurys m (AAA) Screening 05/10/2024 [id number] Vaccine ( - 2023- season) 2024 [facility]-Influenza [...] 2:08 PM EST) POCT Hemoglobin A1C 10.9 [facility] 03/08/2019 2:08 PM EST Narrative [facility] - 03/08/2019 2:08 PM EST Resulting Agency - [facility] [[facility]] Historical Provider POINT OF CARE TEST ENTER/DEBI T ORDERABLES Final Result Performing Organization Address City/[facility]/ZIP Co de Phone Number [facility] [address] [facility] [address] * Hepatitis C Antibody (06/06/2017 1:06 PM EDT) Pathologist [facility] Hepatitis C Antibody NEGATIVE Reference Range: Negative SUNQUEST 06/06/2017 1:06 PM EDT 06/06/2017 4:32 PM EDT Historical Provider LAB BLOOD ORDERABLES Final R esult SUNQUEST from Last 3 Months or Most Recently Relevant to Health Maintenance Insurance MEDICARE [facility]ESS[facility] Care Teams Police Sergeant Precinct Relationship Specialty Start Date End Date Darrick Villela MD [address] [place] [address] PCP - General Internal Medicine 06/02/22
--- OUTSIDE RECORDS SUMMARY | 2024-11-23 15:06 | XMS_ITS | Encounter Summary ---
Author Organization Healthcare Address [address] [place] [address] Care Team Providers Care Grant Manager Name Role Phone Gudelia Vidal Primary Care Provider [phone] Darrick Villela MD Primary Care Provider [phone] Reason for Visit * Reason Comments Med Refill Encounter Details Date Type Department Care Team (Late st Contact Info) Description 04/01[facility]2021 [facility] [address] [place] [address] Ashly Kang, JEWELRY ESTIMATOR [address] [facility] [address] [place] [address] Social History Tobacco Use Types [...] on filedocumented in this encounter Care Teams Grant Manager Relationship Specialty Start Date End Date Gudelia Vidal PA [address] [place] [address] PCP - General 07/04/20 06/01/22 Darrick Villela MD [address] [place] [address] PCP - General Internal Medicine 06/02/22 documented as of this encounter
[2024-11-23 15:19] LABS: VBG HCO3 26.3 mmol/L (23-30); VBG PCO2 37.1 mmol/L (35-51); VBG PH 7.47 mmol/L (7.31-7.41); VBG PO2 95.9 mmol/L (28-40)
[2024-11-23 15:20] LABS: Lactate Venous 3.7 mmol/L (0.4-2.0)
[2024-11-23 15:22] LABS: Hematocrit 42.0 % (42.0-52.0); Hemoglobin 14.2 g/dL (14.1-18.0); Immature Granulocytes % 0.8 %; Mean Corpuscular HGB Conc 33.8 g/dL (31.8-35.4); Mean Corpuscular Hemoglobin 29.0 pg (27.0-31.2); Mean Corpuscular Volume 85.9 fl (80-94); Nucleated Red Blood Cells % 0 %; Platelet Count 324 K/mm3 (142-424); Red Blood Count 4.89 M/mm3 (4.60-6.20); Red Cell Distribution Width-SD 45.3 fL; White Blood Count 12.5 K/mm3 (4.8-10.8)
--- NOTE | 2024-11-23 15:22 | HMH.EDGENADL ---
Discharge Plan Disposition Patient Disposition: Admitted Clinical Impressions Clinical Impression: Sepsis, Pneumonia, Acute hyponatremia, Acute hypokalemia, Pleural effusion, Acute hyperglycemia Discharge ED Provider: Maikel Villalba Adult HPI General Chief complaint: Hyper/Hypoglycemia Stated complaint: Blood sugar >500 Time Seen by Provider: 11/23/24 15:21 Mode of Arrival: Wheelchair Source of Information: Patient Description of Symptoms (Recalled from ER Triage Doc. by RN): PT REPORTS PRODUCTIVE COUGH WITH CHEST DISCOMFORT, BODYACHES, SHORTNESS OF BREATH, CONGESTION FOR ABOUT 2-3 DAYS. WENT TO PCP AND WAS SENT FOR ELEVATED BLOOD GLUCOSE OVER 500. History of Present Illness HPI narrative: Rosales Holcomb is a 64y male with a history of insulin-dependent diabetes, hypertension, hyperlipidemia, tobacco use, documented history of COPD, cholecystectomy, ACL repair with chronic right knee pain and is followed by Dr. Chatterjee with plan for possible pain pump placement who presents to the emergency department per PCP recommendations for elevated blood glucose. Patient states that he thinks he takes long-acting insulin for his glucose. He states that he takes it 1 time during the day in the morning. He reports over the last 2 to 3 days, he has had a cough productive of yellow sputum with chest pain with coughing and some mild shortness of breath. He states that he has had trouble getting his glucose under 200 for quite some time and cannot get his pain pump until his glucose is under 200. He was seen by his PCP today and his blood sugar was over 500 and he was sent to the emergency department. Patient states that this is not the first time his blood sugar has been this high. He denies any abdominal pain or vomiting or diarrhea. He states that his was recently ill with respiratory symptoms and thinks that he caught something from her. Related Data Home Medications ?Medication ?Instructions ?Recorded ?Confirmed atorvastatin 80 mg tablet 80 mg PO HS 03/15/23 11/23/24 diltiazem HCl 240 mg 240 mg PO QAM 02/03/24 11/23/24 capsule,extended release 24 hr pregabalin 200 mg capsule 200 mg PO TID 02/03/24 11/23/24 meloxicam 7.5 mg tablet 7.5 mg PO DAILY 11/08/24 11/23/24 Previous Rx's ?Medication ?Instructions ?Recorded fenofibrate nanocrystallized 145 145 mg PO DAILY #90 tabs 10/08/22 mg tablet pen needle, diabetic 31 gauge x #100 ea 01/19/23 3/16 (BD Ultra-Fine Mini Pen Needle) apixaban 5 mg tablet (Eliquis) 5 mg PO BID 30 days #60 tabs 11/14/23 lisinopril 10 mg tablet 10 mg PO DAILY 90 days #90 tabs 11/14/23 nitroglycerin 0.4 mg sublingual 0.4 mg sublingual Q5-15M 30 days 11/14/23 tablet #20 tabs fluoxetine 10 mg tablet 10 mg PO DAILY #30 tabs 02/03/24 duloxetine 60 mg capsule,delayed 60 mg PO DAILY #90 caps 02/28/24 release (Cymbalta) metformin 1,000 mg tablet 1,000 mg PO BID #180 tabs 02/28/24 insulin glargine U-300 conc 300 60 unit (0.2 mL) SQ HS Diabetes #9 03/19/24 unit/mL (3 mL) subcutaneous pen mL (Toujeo Max U-300 SoloStar) blood-glucose sensor (Dexcom G6 #3 ea 07/03/24 Sensor device) blood-glucose transmitter (Dexcom #1 ea 07/03/24 G6 Transmitter device) blood-glucose,floor worker well service,cont #1 ea 07/03/24 (Dexcom G6 Military Personnel Specialist) Allergies Allergy/AdvReac Type Severity Reaction Status Date / Time aspirin Allergy Unknown Vomiting Verified 11/23/24 13:11 codeine (CODEINE) Allergy Unknown Vomiting Verified 11/23/24 13:11 [facility] Disclaimer: The information contained in this section may have been updated after the patient was seen, as this information can be updated by other users. Medical History (Updated 11/23/24 @ 18:21 by Maikel Villalba MD) Screening for lung cancer A-fib Chronic pain Hyperlipidemia Hypertension Diabetes Diabetic neuropathy COPD exacerbation Varicosities of leg Neuropathy Obesity (BMI 30.0-34.9) Surgical History Hx of cataract surgery H/O repair of rotator cuff History of cholecystectomy History of repair of ACL H/O hand surgery Family History Diabetes Mother Stroke Grandfather Social History Smoking Status: Current every day smoker second hand exposure: No alcohol intake: never counseling provided: none substance use type: denies use current occupational status: unemployed Travel in the last 8 weeks?: None household members: spouse housing: house Have you lived/traveled outside US in past 30 days?: No Contact w/someone who lives/traveled outside US past 30 days?: No Exposure to someone with infectious disease in past 14 days?: No Do you have a fever (greater than 100.4 F or 38 C)?: No Have you tested positive for COVID-19?: No Exposed to someone with COVID-19 in past 14 days?: No Do you have a sore throat?: No Do you have a cough?: No Do you have any weakness?: No Do you have any diarrhea?: No Are you experiencing any unusual bleeding?: No Do you have any muscle aches/pain?: No Do you have any abdominal pain?: No Are you experiencing loss of taste or smell?: No Other Medical History Have you received the Flu Vaccine for this season: No Have you received the Pneumonia Vaccine: No ROS Obtained: Yes Systems reviewed as appropriate & no additional complaints except as documented Physical Exam General General appearance: alert and in no apparent distress Comment: ill appearing Head Head exam: atraumatic Eye Eye exam: Present normal appearance ENT ENT exam: Present normal external ear exam Neck Neck exam: Present full ROM Chest Chest inspection: Present symmetric chest wall rise Respiratory Respiratory exam: Absent normal lung sounds bilaterally (diminished at the left base), respiratory distress, wheezes or stridor Cardiovascular Cardiovascular exam: Present normal rhythm and tachycardia Abdominal Exam Abdominal exam: Present soft; Absent distention, tenderness or guarding exam: Present deferred Extremities Exam Extremities exam: Present normal inspection; Absent edema Back Exam Back exam: Present normal inspection Neurological Exam Neurological exam: Present alert and oriented X3 Psychiatric Psychiatric exam: Present normal affect Skin Skin exam: Present warm and dry Medical Decision Making Medical Records Screening: Per USPSTF and CDC recommendations, given the prevalence of disease in our region, it is our hospital?s policy to screen for HIV and viral Hepatitis for all patients aged 18 and over and those with ongoing risk factors. Raad Inquiry Pt receiving controlled substance: No Vital Signs: 11/23/24 14:57 11/23/24 15:30 11/23/24 16:00 Temperature 98.6 F Temperature Source Oral Pulse Rate 100 H 93 H Pulse Rate [Apical] 110 H Respiratory Rate 18 Blood Pressure 119/67 120/68 Blood Pressure [Right Arm] 130/77 Blood Pressure Mean [Right Arm] 94 Blood Pressure Source [Right Arm] Automatic Cuff Blood Pressure Position [Right Arm] Sitting 02 Sat by Pulse Oximetry 95 93 L 93 L Oxygen Delivery Method Room Air Room Air Room Air Lab Data Lab Results 11/23/24 15:10: WBC 12.5 H, RBC 4.89, Hgb 14.2, Hct 42.0, MCV 85.9, MCH 29.0, MCHC 33.8, RDW 14.6, Plt Count 324, MPV 10.8 H, Neut % (Auto) 82.6 H, Lymph % (Auto) 9.9 L, Scott % (Auto) 5.7, Eos % (Auto) 0.7, Baso % (Auto) 0.3, Neut # (Auto) 10.3 H, Lymph # (Auto) 1.2, Scott # (Auto) 0.7, Eos # (Auto) 0.1, Baso # (Auto) 0.0, D-Dimer 2.21 H, Sodium 125 L, Potassium 3.0 L, Chloride 85 L, Carbon Dioxide 29, Anion Gap 14.0, BUN 8 L, Creatinine 0.80, Estimated Creat Clear 94, Estimated GFR 97, Est GFR ( Amer) 117, Glucose 564 H*, Calcium 8.3 L, Magnesium 1.6, Total Bilirubin 0.5, AST 22, ALT 23, Alkaline Phosphatase 104, Troponin I 0.04 H, NT-Pro-B Natriuret Pep 1670 H, Total Protein 7.6, Albumin 3.4 L, Globulin 4.2 H, Albumin/Globulin Ratio 0.8 L, Acetone Level None detected, HCV Ab JOS w/Rflx PCR Qn Negative, HIV Ag/Ab Combo Qual Negative 11/23/24 15:19: VBG pH 7.47 H, VBG pCO2 37.1, VBG pO2 95.9 H, VBG HCO3 26.3, VBG Total CO2 27.5 H, VBG O2 Saturation 97.9 H, VBG Base Excess 2.7 H, VBG Lactic Acid 3.7 H 11/23/24 16:01: SARS-CoV-2 (PCR) Not detected, Influenza Type A (PCR) Not detected, Influenza Type B (PCR) Not detected, RSV (PCR) Not detected, Rhinovirus (PCR) Not detected 11/23/24 15:10 11/23/24 15:10 Orders (Tests/Meds): ED MEDICATIONS Generic Name Dose Route Start Last Admin Trade Name Freq PRN Reason Stop Dose Admin Acetaminophen 650 mg 11/23/24 18:08 Acetaminophen 325mg Tab PO 12/23/24 18:07 Q4HP PRN Fever or Mild Pain (1-3) Hydrocodone Bitart/Acetaminophen 1 tab 11/23/24 18:16 Hydrocodone/Apap 5/325 Mg Tablet PO 12/23/24 18:15 Q6HP PRN Moderate to Severe Pain (4-10) Duloxetine HCl 60 mg 11/24/24 09:00 Duloxetine 30mg Capsule. PO 12/24/24 08:59 DAILY MARTHA Fluoxetine HCl 10 mg 11/24/24 09:00 Fluoxetine 10mg Capsule PO 12/24/24 08:59 DAILY MARTHA Azithromycin 500 mg/ Sodium 250 mls @ 250 mls/hr 11/23/24 16:00 11/23/24 17:33 Chloride IV 12/03/24 15:59 250 mls/hr Q24H MARTHA Administration Insulin Glargine 50 unit 11/23/24 21:00 Insulin Glargine 100 Units/Ml 3ml Flexpen SUBCUT 12/23/24 20:59 HS MARTHA Insulin Human Lispro 0 unit 11/23/24 21:00 Humalog 100 Units/Ml 10ml Vial (Ssi) SUBCUT 12/23/24 20:59 ACHS MARTHA Protocol Nicotine 21 mg 11/23/24 18:08 Nicotine 21mg/24hr Patch TD 12/23/24 18:07 DAILYP PRN Nicotine Cravings Ondansetron HCl 4 mg 11/23/24 18:08 Ondansetron 4mg/2ml Vial IV 12/23/24 18:07 Q8HP PRN Nausea Pregabalin 100 mg 11/23/24 21:00 Pregabalin 100mg Capsule PO 12/23/24 20:59 TID MARTHA Discontinued Medications Generic Name Dose Route Start Last Admin Trade Name Freq PRN Reason Stop Dose Admin Lactated Ringer's 1,000 mls @ 999 mls/hr 11/23/24 15:28 11/23/24 17:24 Lactated Ringer's 1000 Ml Bag IV 11/23/24 16:28 Infused .Q1H1M ONE Infusion Ceftriaxone Sodium 2 gm/ 100 mls @ 200 mls/hr 11/23/24 15:50 11/23/24 17:23 Sodium Chloride IV 11/23/24 16:19 Infused ONCE ONE Infusion Insulin Human Lispro 10 unit 11/23/24 15:30 11/23/24 15:50 Humalog 100 Units/Ml 10ml Vial (Ssi) SUBCUT 11/23/24 15:31 10 unit ONCE ONE Administration Iopamidol 70 ml 11/23/24 16:40 11/23/24 16:41 Iopamidol-370 (76%);100ml Bottle IV 11/23/24 16:41 70 ml ONCE ONE Administration Potassium Chloride 40 meq 11/23/24 16:11 11/23/24 16:26 Potassium Chloride 20meq Tab PO 11/23/24 16:12 40 meq ONCE ONE Administration Sodium Chloride 50 ml 11/23/24 16:40 11/23/24 16:41 0.9 % Sodium Chloride 50 Ml Vial IV 11/23/24 16:41 50 ml ONCE ONE Administration Sodium Chloride 10 ml 11/23/24 16:40 11/23/24 16:41 Sodium Chloride 0.9% 10ml Syr (Rad Only) IV 11/23/24 16:41 10 ml ONCE ONE Administration ORDERS Category Date Time Status CT angio chest PE protocol Stat Cat Scan 11/23/24 16:06 Completed CXR 2 view (NOT portable) [XR chest 2V] Stat Exams 11/23/24 15:28 Completed Acetone, Serum (Rapid) Stat Lab 11/23/24 15:10 Completed BNP [NT Pro Brain Natriuretic Pep.] Stat Lab 11/23/24 15:10 Completed Blood alcohol [Ethyl Alcohol] Stat Lab 11/23/24 17:56 Ordered Complete Blood Count Auto Diff Stat Lab 11/23/24 15:10 Completed Comprehensive Metabolic Panel Stat Lab 11/23/24 15:10 Completed D-Dimer Stat Lab 11/23/24 15:10 Completed HIV Combo Stat Lab 11/23/24 15:10 Completed Hepatitis C Ab Qual. W/ RFX Stat Lab 11/23/24 15:10 Completed Magnesium Stat Lab 11/23/24 15:10 Completed Mini Respiratory Panel Stat Lab 11/23/24 16:01 Completed Troponin I Q3H Lab 11/23/24 18:30 Ordered Troponin I Q3H Lab 11/23/24 21:30 Ordered Troponin I Stat Lab 11/23/24 15:10 Completed Blood Culture Stat Micro 11/23/24 15:51 Received VBG [Venous Blood Gas] Stat RT 11/23/24 15:19 Completed ECG Data Tracing #1: I reviewed this ECG and interpreted as documented below: Normal sinus rhythm. Mild, less than [address] elevation in leads V2 to V3, appears identical to previous EKGs. No acute ST elevation or depressions HEART Score History (anamnesis): Slightly suspicious ECG: Normal Age: 45-65 years Risk factors: Atherosclerosis history Troponin: 1-3x normal limit HEART Score: 4 Medical Decision Narrative: Rosales Holcomb is a 64y male with a history of insulin-dependent diabetes, hypertension, hyperlipidemia, tobacco use, documented history of COPD, cholecystectomy, ACL repair with chronic right knee pain and is followed by Dr. Chatterjee with plan for possible pain pump placement who presents to the emergency department per PCP recommendations for elevated blood glucose. Patient states that he thinks he takes long-acting insulin for his glucose. He states that he takes it 1 time during the day in the morning. He reports over the last 2 to 3 days, he has had a cough productive of yellow sputum with chest pain with coughing and some mild shortness of breath. He states that he has had trouble getting his glucose under 200 for quite some time and cannot get his pain pump until his glucose is under 200. He was seen by his PCP today and his blood sugar was over 500 and he was sent to the emergency department. Patient states that this is not the first time his blood sugar has been this high. He denies any abdominal pain or vomiting or diarrhea. He states that his was recently ill with respiratory symptoms and thinks that he caught something from her. On arrival, patient's blood pressure is 130/77, tachycardic with a heart rate of 110 bpm, temperature of 98.6 ?F. 95% on room air. He was 93% on room air at time of my evaluation. Physical exam, stated above, revealed an ill but nontoxic-appearing male. He has breathing comfortably. He has diminished breath sounds at the left base but otherwise no abnormal breath sounds. Cardiac exam showed tachycardia but no rubs or murmurs. No peripheral edema. Abdomen is soft, nontender nondistended. Differential diagnosis includes, but is not limited to: Sepsis, pneumonia, pulmonary embolism, ACS, electrolyte derangement, viral respiratory illness, diabetic ketoacidosis, among others. The most morbid conditions were considered and workup was based on these. EKG without ischemic changes. See interpretation above Initial workup in the Emergency Department included: Blood culture x 2, CBC with differential, CMP, troponin, BNP, EKG, acetone level, D-dimer, VBG with lactate, two-view chest x-ray, mini respiratory panel. Patient was started on sepsis bolus lactated ringers as patient appears euvolemic. Patient's workup shows leukocytosis of 12.5 with neutrophilia. VBG shows alkalosis at 7.47 pH and pCO2 37.1, bicarb 26.3, ruling out diabetic ketoacidosis. Lactate is elevated at 3.7. Patient is hyponatremic at 125, hypokalemic at 3 (will replete with 40 mEq of p.o. potassium chloride), chloride low at 85. Patient's glucose is significantly elevated at 564 and will give 10 units of regular insulin subcutaneous. Initial troponin of 0.04, likely secondary to demand ischemia secondary to patient's sepsis. Patient's NT proBNP is mildly elevated at 1670, no previous comparisons available. Urinalysis with significant proteinuria, trace blood, negative leukocyte esterase and negative nitrate. Acetone level is negative. Patient's mini respiratory panel is negative. Patient's hyperglycemia is likely best explained by patient's sepsis as well as medication noncompliance. Chest x-ray was interpreted by me personally. There is a lobular consolidation in the left lower lobe consistent with pneumonia and possibly small effusion. Will start patient on IV Rocephin 2 g as well as 500 g of IV azithromycin for pneumonia treatment in the setting of sepsis. Given patient's elevated D-dimer, which is likely elevated in the setting of his acute infection, however cannot rule out pulmonary embolism, will obtain CT pulmonary embolism at this time. Patient is in agreement to proceed with CT imaging. Patient significant other at bedside also states that he is not consistent with taking his insulin and has not been taking his Eliquis. Given patient's elevated BNP, will only give 1L of the of the patient's sepsis bolus fluids and effusion on CXR and CT. His HR has improved to the mid 80s. CT pulmonary embolism was interpreted by me prior to official radiology read. Patient has a left-sided pleural effusion with ground glass opacities to suggest pneumonia. No segmental or subsegmental pulmonary embolisms are identified. See radiology report for final details. I discussed with patient that there is concern for sepsis and that he needs additional IV antibiotics/treatment for his pneumonia. He was in agreement with admission at this time. I did discuss patient's case with Dr. Read of the hospitalist service who was in agreement to admit the patient prior to official radiology read. Patient CT imaging, per radiology shows no evidence of pulmonary embolism or aortic dissection. There is extensive consolidation in the lingular portion of the left upper lobe suggesting pneumonia but cannot rule out underlying neoplasm. He has nodular densities in the posterior left upper lobe, anterior right apex, anterior right upper lobe. Extensive bernie enlargement in the mediastinum and left hilum, which might be reactive secondary pneumonia, however this is also notable enlargement in the lower paraesophageal and upper abdominal celiac distribution which is atypical. There is also mild splenomegaly. See radiology report for additional details. Critical Care Critical Care Time Critical Care Time: No
[2024-11-23 15:26] LABS: Albumin Level 3.4 g/dl (3.5-5.0); Chloride 85 mmol/L (98-107); Sodium 125 mmol/L (136-145)
--- NOTE | 2024-11-23 15:28 | XR_ITS ---
FINAL REPORT TECHNIQUE: Chest PA & Lateral CLINICAL HISTORY: Shortness of breath, cough COMPARISON: None FINDINGS: 2 views of the chest were performed. The heart size is normal. The mediastinum is within normal limits. Airspace opacity in the left infrahilar region is probably due to acute pneumonia. There is a moderate left pleural effusion. The right lung is clear. There is no pneumothorax. The bony thorax appears intact. IMPRESSION: Probable acute pneumonia left infrahilar region and moderate left pleural effusion. Reviewed, Interpreted and Dictated by Carlo Stewart MD Transcribed by Hellen Brantley Authenticated and [facility]
[2024-11-23 15:29] LABS: Alanine Aminotransferase 23 U/L (12-78); Albumin/Globulin Ratio 0.8 (1.1-1.8); Alkaline Phosphatase 104 U/L (38-126); Anion Gap 14.0 mEq/L (5-15); Aspartate Amino Transferase 22 U/L (17-59); Bilirubin,Total 0.5 mg/dl (0.2-1.3); Blood Urea Nitrogen 8 mg/dl (9-20); Carbon Dioxide 29 mmol/L (22.0-30.0); Creatinine Clearance Estimated 94 mL/min (50-200); Creatinine,Serum 0.80 mg/dl (0.66-1.25); Estimated Glomerular Filt Rate 97 ml/min (>60); GFR (African American) 117 ML/MIN (>60); Globulin 4.2 g/dL (1.3-3.2); Total Protein,Serum 7.6 g/dl (6.3-8.2)
[2024-11-23 15:30] LABS: Calcium 8.3 mg/dl (8.4-10.2)
--- NOTE | 2024-11-23 15:33 | ECG_ITS ---
APPROVED REPORT Exam: Resting ECG HR:94 bpm ECG Measurements Heart Rate 94 AXES RI 150 P 67 QRSd 108 QRS 87 QT 358 T 14 QTc 409 Conclusion SINUS RHYTHM POSSIBLE LEFT ATRIAL ENLARGEMENT [-0.1mV P-WAVE IN V1/V2] POSSIBLE ANTERIOR MYOCARDIAL INFARCTION , OF INDETERMINATE AGE [30 ms Q WAVE IN V3/V4, OR R < 0.2 mV IN V4] ABNORMAL ECG UNCONFIRMED REPORT Normal sinus rhythm. Mild ST elevation in V2 and V3. No recipricol changes. No STEMI. QTc 409 Electronically signed by : VALERY RODGERS, 11/23/2024 23:06:10
[2024-11-23 15:50] LABS: Magnesium 1.6 mg/dl (1.6-2.3)
[2024-11-23] MEDS: LACTATED RINGERS 1000ML 1,000 ML 999 ML IV (15:50)
[2024-11-23] MEDS: humaLOG 100 UNITS/ML 10ML VIAL (SSI) 10 UNIT SUBCUT (15:50)
[2024-11-23 16:04] LABS: D-Dimer 2.21 ug/mL (0.0-0.5)
[2024-11-23 16:05] LABS: NT Pro Brain Natriuretic Pep. 1670 pg/mL (0-125)
--- NOTE | 2024-11-23 16:06 | CT_ITS ---
PROCEDURE INFORMATION: Exam: CTA Chest Without And With Contrast Exam date and time: 11/23/2024 4:36 PM Age: 64 years old Clinical indication: Shortness of breath and other: Tachycardia, elevated d-dimer; Additional info: SOB, tachycardia, elevated d-dimer TECHNIQUE: Imaging protocol: Computed tomographic angiography of the chest without and with contrast. Exam focused on the arteries. 3D rendering (Not supervised by radiologist): MIP and/or 3D reconstructed images were created by the technologist. Radiation optimization: All CT scans at this facility use at least one of these dose optimization techniques: automated exposure control; mA and/or kV adjustment per patient size (includes targeted exams where dose is matched to clinical indication); or iterative reconstruction. Contrast material: ISOVUE; Contrast volume: 75 ml; Contrast route: INTRAVENOUS (IV); COMPARISON: CT ANGIO CHEST 03/14/2023 6:05 PM FINDINGS: Pulmonary arteries: The pulmonary arteries enhance appropriately with no evidence of pulmonary embolism. Aorta: The aorta demonstrates mild ectasia/tortuosity and moderate calcific atherosclerosis. Moderate mixed plaque in the proximal left CCA without significant stenosis. No aortic aneurysm or dissection. No mediastinal hematoma. Thyroid: The visualized thyroid gland demonstrates no gross abnormality. Lungs: Mild bilateral bronchial wall thickening suggesting bronchitis or bronchial edema. Consolidative densities in the lingular portion of the left upper lobe suggesting consolidative pneumonia. Can not exclude underlying mass lesion in this region, recommend short-term imaging follow-up to document clearance, versus PET-CT characterization. Additional small rounded areas of consolidation are seen in the posterior left upper lobe and anterior right apex measuring 1.5 cm and 2 cm respectively. Less consolidative peripheral alveolar opacities are present in the peripheral lingula which could represent atelectasis or pneumonia. Small foci of aeration within the consolidation are commensurate with the emphysematous changes seen elsewhere, with no definite pulmonic abscess cavity. Additional small peripheral pulmonary nodules versus nodular infiltrates in the anterior right upper lobe measuring up to 10 mm are new. Recommend reassessment of this region on the recommended short-term follow-up. Moderate paraseptal and centrilobular emphysematous changes with upper lung field predominance. Pleural spaces: Moderate volume simple dependent layering left pleural effusion. No gross features of empyema. No pneumothorax. Heart: Mild cardiomegaly. No pericardial effusion. Coronary arteries: Coronary stents versus moderate-severe calcific plaque in the proximal left main and mid RCA distributions Esophagus: The esophagus is largely contracted but demonstrates no gross abnormality. Lymph nodes: No supraclavicular or axillary adenopathy. Enlarged mediastinal nodes in the pretracheal retrocaval, precarinal, subcarinal, AP window, and prevascular distributions. Enlarged left hilar nodes. Enlarged lower periesophageal nodes and right retrocrural nodes. Mildly enlarged celiac nodes partially visualized in the upper abdomen. Spleen: Splenomegaly measuring 14.7 cm. Granulomatous calcifications in the spleen. Bones/joints: No acute osseous abnormalities. Soft tissues: No acute soft tissue abnormalities. IMPRESSION: 1. No evidence of pulmonary embolism or aortic dissection. 2. Extensive consolidation in the lingular portion of the left upper lobe suggesting pneumonia, although can not exclude underlying neoplasm in this region. Recommend short-term CT follow-up to confirm clearance with treatment, versus PET-CT. 3. Additional nodular densities in the posterior left upper lobe, anterior right apex, and anterior right upper lobe detailed above, possibly multifocal nodular infiltrates but nonspecific. Recommend reassessment on recommended short-term follow-up versus PET-CT. 4. Extensive bernie enlargement in the mediastinum and left hilum, which might be reactive secondary to pneumonia, however there is also bernie enlargement in the lower periesophageal and upper abdominal celiac distribution which is atypical. There is also mild splenomegaly. Correlate clinically to exclude evidence of lymphoproliferative disease. 5. Moderate left pleural effusion. 6. Moderate emphysematous changes. 7. Mild bronchial wall thickening suggesting an element of bronchitis or bronchial edema. 8. Additional nonemergent findings detailed above. COMMENTS: The presence of pulmonary emphysema on CT is an independent risk factor for lung cancer. In the absence of a history or active diagnosis of lung cancer, it is recommended that this patient with emphysema be evaluated for enrollment in a low dose CT lung cancer screening program.
[2024-11-23 16:07] LABS: Coronavirus 19, PCR Not Detected (NotDetected); Influenza A, PCR Not Detected (NotDetected); Influenza B, PCR Not Detected (NotDetected)
[2024-11-23 16:07] LABS: Potassium 3.0 mmoL/L (3.5-5.1)
[2024-11-23 16:08] LABS: Glucose 564 mg/dl (74-100)
[2024-11-23 16:11] LABS: Troponin I 0.04 ng/ml (0.00-0.034)
--- NOTE | 2024-11-23 16:12 | PC.NURSE ---
DR RODGERS AT BEDSIDE TO UPDATE PT AND SPOUSE
[2024-11-23 16:23] LABS: Acetone, Serum (Rapid) None Detected (None Detect)
[2024-11-23] MEDS: POTASSIUM CHLORIDE 20MEQ TAB 40 MEQ PO (16:26)
--- NOTE | 2024-11-23 16:28 | PC.NURSE ---
REPORTS PT HAS NOT TAKEN ELIQUIS OR INSULIN OF A WHILE
--- NOTE | 2024-11-23 16:31 | PC.NURSE ---
PT TO CT
--- NOTE | 2024-11-23 16:37 | PC.NURSE ---
PT RETURNED FROM CT
[2024-11-23] MEDS: SODIUM CHLORIDE 0.9% 10ML SYR (RAD ONLY) 10 ML IV (16:41)
[2024-11-23] MEDS: IOPAMIDOL-370 (76%);100ML BOTTLE 70 ML IV (16:41)
[2024-11-23] MEDS: 0.9 % SODIUM CHLORIDE 50 ML VIAL IV (16:41)
[2024-11-23 17:10] LABS: Hepatitis C Ab Qual. W/ RFX NEGATIVE (Negative)
[2024-11-23] MEDS: AZITHROMYCIN 500 MG in 0.9 % SODIUM CHLORIDE 250 ML 250 MG IV (17:33)
--- NOTE | 2024-11-23 17:37 | PC.NURSE ---
FSBS 305
--- NOTE | 2024-11-23 18:02 | PC.NURSE ---
[employer] PROTECTOR NOTIFIED OF ADMISSION
--- NOTE | 2024-11-23 18:12 | EXP.HP ---
History of Present Illness *Admission Date: 11/23/24 *Reason for visit:: Short of breath, cough *History of present illness: 64-year-old male with history of diabetes, CAD, tobacco use disorder who presents with 3 days of cough and pain when he coughs in his left chest. Denies nausea or vomiting. Cough somewhat productive. Found to have elevating blood sugar at home as well. On arrival to the ER, workup initiated finding white count of 12.5, glucose of 564. Sodium 125. Chest CTA showing left-sided pneumonia and upper and lower lobe along with parapneumonic effusion. Patient tachycardic. Meeting sepsis criteria. Initiated on broad-spectrum antibiotics. Medicine consulted for admission and further management. On evaluation, patient denies any fever. Seemed surprised to learn he has pneumonia. Continues to smoke approximately three quarters of a pack of cigarettes a day. Denies alcohol dependence. States has been having hard time with managing his diabetes lately and has numbers been going up even though he is been taking his insulin. Has mixed compliance with treatment for his A-fib. States he has pain in his left lower chest with deep inspiration. Sputum is thick and yellow. Denies confusion, headache, changes in vision, syncope. [facility] Disclaimer: The information contained in this section may have been updated after the patient was seen, as this information can be updated by other users. Medical History (Updated 11/23/24 @ 18:21 by Maikel Villalba MD) Screening for lung cancer A-fib Chronic pain Hyperlipidemia Hypertension Diabetes Diabetic neuropathy COPD exacerbation Varicosities of leg Neuropathy Obesity (BMI 30.0-34.9) Surgical History Hx of cataract surgery H/O repair of rotator cuff History of cholecystectomy History of repair of ACL H/O hand surgery Family History Diabetes Mother Stroke Grandfather Social History Smoking Status: Current every day smoker second hand exposure: No alcohol intake: never counseling provided: none substance use type: denies use current occupational status: unemployed Travel in the last 8 weeks?: None household members: spouse housing: house Have you lived/traveled outside [place] in past 30 days?: No Contact w/someone who lives/traveled outside US past 30 days?: No Exposure to someone with infectious disease in past 14 days?: No Do you have a fever (greater than 100.4 F or 38 C)?: No Have you tested positive for COVID-19?: No Exposed to someone with COVID-19 in past 14 days?: No Do you have a sore throat?: No Do you have a cough?: No Do you have any weakness?: No Do you have any diarrhea?: No Are you experiencing any unusual bleeding?: No Do you have any muscle aches/pain?: No Do you have any abdominal pain?: No Are you experiencing loss of taste or smell?: No Other Medical History Have you received the Flu Vaccine for this season: No Have you received the Pneumonia Vaccine: No Review of Systems Review of Systems Review of systems (narrative): 14 point review of systems performed, pertinent positives and negatives as per HPI Meds Home Medications and Allergies Home Medications ?Medication ?Instructions ?Recorded ?Confirmed ?Type fenofibrate nanocrystallized 145 145 mg PO DAILY #90 tabs 10/08/22 11/23/24 Rx mg tablet pen needle, diabetic 31 gauge x #100 ea 01/19/23 11/23/24 Rx 3/16 (BD Ultra-Fine Mini Pen Needle) atorvastatin 80 mg tablet 80 mg PO HS 03/15/23 11/23/24 History apixaban 5 mg tablet (Eliquis) 5 mg PO BID 30 days #60 tabs 11/14/23 11/23/24 Rx lisinopril 10 mg tablet 10 mg PO DAILY 90 days #90 tabs 11/14/23 11/23/24 Rx nitroglycerin 0.4 mg sublingual 0.4 mg sublingual Q5-15M 30 days 11/14/23 11/23/24 Rx tablet #20 tabs diltiazem HCl 240 mg 240 mg PO QAM 02/03/24 11/23/24 History capsule,extended release 24 hr fluoxetine 10 mg tablet 10 mg PO DAILY #30 tabs 02/03/24 11/23/24 Rx pregabalin 200 mg capsule 200 mg PO TID 02/03/24 11/23/24 History duloxetine 60 mg capsule,delayed 60 mg PO DAILY #90 caps 02/28/24 11/23/24 Rx release (Cymbalta) metformin 1,000 mg tablet 1,000 mg PO BID #180 tabs 02/28/24 11/23/24 Rx insulin glargine U-300 conc 300 60 unit (0.2 mL) SQ HS Diabetes #9 03/19/24 11/23/24 Rx unit/mL (3 mL) subcutaneous pen mL (Toujeo Max U-300 SoloStar) blood-glucose sensor (Dexcom G6 #3 ea 07/03/24 11/23/24 Rx Sensor device) blood-glucose transmitter (Dexcom #1 ea 07/03/24 11/23/24 Rx G6 Transmitter device) blood-glucose,plastic molding operator,cont #1 ea 07/03/24 11/23/24 Rx (Dexcom G6 Chief Vendor Quality) meloxicam 7.5 mg tablet 7.5 mg PO DAILY 11/08/24 11/23/24 History New Prescriptions to Start Prescriptions: Allergies Allergy/AdvReac Type Severity Reaction Status Date / Time aspirin Allergy Unknown Vomiting Verified 11/23/24 13:11 codeine (CODEINE) Allergy Unknown Vomiting Verified 11/23/24 13:11 Exam Data for Last 24 hours Vital signs and Labs for Last 24 Hours: Temp Pulse Resp BP Pulse Ox O2 Del Method 98.6 F 93 H 18 120/68 93 L Room Air 11/23/24 14:57 11/23/24 16:00 11/23/24 14:57 11/23/24 16:00 11/23/24 16:00 11/23/24 16:00 Laboratory Results - last 24 hr 11/23/24 15:10: WBC 12.5 H, RBC 4.89, Hgb 14.2, Hct 42.0, MCV 85.9, MCH 29.0, MCHC 33.8, RDW 14.6, Plt Count 324, MPV 10.8 H, Neut % (Auto) 82.6 H, Lymph % (Auto) 9.9 L, Luna % (Auto) 5.7, Eos % (Auto) 0.7, Baso % (Auto) 0.3, Neut # (Auto) 10.3 H, Lymph # (Auto) 1.2, Luna # (Auto) 0.7, Eos # (Auto) 0.1, Baso # (Auto) 0.0, D-Dimer 2.21 H, Sodium 125 L, Potassium 3.0 L, Chloride 85 L, Carbon Dioxide 29, Anion Gap 14.0, BUN 8 L, Creatinine 0.80, Estimated Creat Clear 94, Estimated GFR 97, Est GFR ( Amer) 117, Glucose 564 H*, Calcium 8.3 L, Magnesium 1.6, Total Bilirubin 0.5, AST 22, ALT 23, Alkaline Phosphatase 104, Troponin I 0.04 H, NT-Pro-B Natriuret Pep 1670 H, Total Protein 7.6, Albumin 3.4 L, Globulin 4.2 H, Albumin/Globulin Ratio 0.8 L, Acetone Level None detected, HCV Ab JOS w/Rflx PCR Qn Negative, HIV Ag/Ab Combo Qual Negative 11/23/24 15:19: VBG pH 7.47 H, VBG pCO2 37.1, VBG pO2 95.9 H, VBG HCO3 26.3, VBG Total CO2 27.5 H, VBG O2 Saturation 97.9 H, VBG Base Excess 2.7 H, VBG Lactic Acid 3.7 H 11/23/24 16:01: SARS-CoV-2 (PCR) Not detected, Influenza Type A (PCR) Not detected, Influenza Type B (PCR) Not detected, RSV (PCR) Not detected, Rhinovirus (PCR) Not detected I & O for Last 24 hours: Intake & Output 11/20/24 11/21/24 11/22/24 11/23/24 23:59 23:59 23:59 23:59 Intake Total 1100 / 1100 Balance 1100 / 1100 Weight 90.718 kg Constitutional Constitutional: mild distress, average body habitus, chronically ill appearing and cooperative *Routine HEENT Exam Head: Present normocephalic and atraumatic Eye: Present EOMI, PERRL and normal accommodation ENT: Present mucous membranes moist *Routine Neck Exam Neck: Present supple, full ROM and trachea midline *Routine Respiratory Exam Respiratory: Present rhonchi, crackles (Throughout left lung field), diminished air movement (Low left lower lung field), able to speak in complete sentences and symmetric chest movement; Absent accessory muscle use or respiratory distress *Routine Cardiovascular Exam Cardiovascular: Present Normal S1, Normal S2 and tachycardia *Routine Abdominal Exam Abdominal: Present soft and normoactive bowel sounds; Absent organomegaly or hernia *Routine Rectal Exam Rectal:: deferred *Routine Genitalia Exam Genitalia:: deferred *Routine Extremities Exam Extremities: Present full ROM and pulses intact; Absent cyanosis, clubbing or edema *Routine Skin Exam Skin: Present intact, dry and warm *Routine Neurological Exam Neurological: Present alert, oriented X3, normal reflexes, moving all extremities and normal speech; Absent altered mental status Routine Psychiatric Exam Psychiatric: Present normal affect and cooperative Assessment and Plan *Assessment and plan (1) Sepsis: Status: Acute Category: Medical Code(s): A41.9 - Sepsis, unspecified organism (2) Pneumonia: Status: Acute Category: Medical Code(s): J18.9 - Pneumonia, unspecified organism (3) Acute hyponatremia: Status: Acute Category: Medical Code(s): E87.1 - Hypo-osmolality and hyponatremia (4) Acute hypokalemia: Status: Acute Category: Medical Code(s): E87.6 - Hypokalemia (5) Parapneumonic effusion: Status: Acute Category: Medical Code(s): J18.9 - Pneumonia, unspecified organism; J91.8 - Pleural effusion in other conditions classified elsewhere (6) Current smoker: Status: Acute Category: Social Hx Code(s): F17.200 - Nicotine dependence, unspecified, uncomplicated (7) Hyperglycemia: Status: Acute Category: Medical Code(s): R73.9 - Hyperglycemia, unspecified (8) Hypertension: Status: Acute Qualifiers: Hypertension type: unspecified Qualified Code(s): I10 - Essential (primary) hypertension Category: Medical Code(s): I10 - Essential (primary) hypertension (9) Diabetic neuropathy: Status: Acute Qualifiers: Diabetes mellitus complication detail: diabetic autonomic neuropathy Diabetes mellitus type: type 2 Qualified Code(s): E11.43 - Type 2 diabetes mellitus with diabetic autonomic (poly)neuropathy Category: Medical Code(s): E11.40 - Type 2 diabetes mellitus with diabetic neuropathy, unspecified (10) Diabetes: Status: Acute Qualifiers: Diabetes mellitus complication status: with other specified complication Diabetes mellitus terminal block assembler insulin use: unspecified half-way insulin use status Diabetes mellitus type: type 2 Qualified Code(s): E11.69 - Type 2 diabetes mellitus with other specified complication Category: Medical Code(s): E11.9 - Type 2 diabetes mellitus without complications (11) A-fib: Status: Chronic Category: Medical Code(s): I48.91 - Unspecified atrial fibrillation Plan 64-year-old male who presented with hyperglycemia, cough, chest pain with cough. Found to have significant pneumonia and sepsis on arrival along with hyperglycemia/uncontrolled diabetes. Discussed case with ER physician, request admission for IV antibiotics and further treatment of pneumonia, sepsis, electrolyte disturbances and uncontrolled diabetes. I decided admit to stepdown level of care for further management. PSI/port score of 95, class IV risk. Problems addressed as follows: Sepsis Complicated pneumonia Parapneumonic effusion - White count elevated 12.5, tachycardic consistently even after IV fluids. Pneumonia on imaging. Suspect bacterial in etiology. Blood cultures and sputum culture pending. Urine strep antigen pending. - Initiated on broad-spectrum antibiotics with ceftriaxone and azithromycin. Will transition to Zosyn given his uncontrolled diabetes and risk for Pseudomonas. Continue azithromycin 500 mg IV daily for 3 days - DuoNebs every 6 hours as needed - Smokes daily, nicotine patch as needed 21 mg daily - Repeat CBC, CMP, magnesium ordered for the morning. Type II NSTEMI: Troponin 0.04, BNP 1600. Suspect elevated troponin secondary to stress of pneumonia Hyponatremia Hypokalemia Hyperglycemia Poorly controlled diabetes - Uncontrolled diabetes. Glucose 564, sodium 125, potassium 3.0. Kidney function normal with BUN 8, creatinine 0.8. Received potassium replacement in the ER. Initiate electrolyte protocol. - Monitor for improvement on morning labs. - Initiate sliding scale insulin, high intensity, with fingersticks ACHS. - Initiate long-acting insulin glargine 50 units nightly - Holding metformin in the setting of elevated lactate and sepsis - Denies alcohol consumption but will monitor for withdrawal given his hyponatremia not solely explained by his hyperglycemia. Could also be a component of SIADH given pneumonia and infection of lung Mood disorder: Continue Cymbalta 60 mg daily, Prozac 10 mg daily History of paroxysmal A-fib, in sinus rhythm per my review of EKG. Will anticoagulate with Lovenox 40 mg daily. Holding home diltiazem due to normal blood pressure and sepsis, reevaluate in the morning -Holding home lisinopril - Patient noncompliant with his Eliquis at home. Consider resuming at discharge Diabetic neuropathy - Resume Lyrica 100 mg 3 times a day, reevaluate dose adjustment pending reconciliation of home med rec -Tylenol as needed 625 mg every 4 hours for mild pain or fever - Hydrocodone 5 mg/325mg as needed every 6 hours for moderate to severe pain Full code Diabetic diet
--- NOTE | 2024-11-23 18:23 | PC.NURSE ---
REPORT CALLED TO PURA WILSON
--- NOTE | 2024-11-23 18:36 | PC.NURSE ---
patient arrived to the ICU at 183 via wheelchair and RN
--- NOTE | 2024-11-23 18:45 | PC.NURSE ---
Seizure pads applied to side rails. CIWA of 4 upon assessment. aware. Continuation of care plan.
[2024-11-23 18:55] LABS: POC Glucose,Bedside 341 gm/dL (70-110)
[2024-11-23 18:58] LABS: Troponin I 0.04 ng/ml (0.00-0.034)
[2024-11-23 19:21] LABS: Reflex Lactic Add Lactic Reflex
--- NOTE | 2024-11-23 19:40 | PC.WOUNDNOTE ---
Right lower leg, scabbed second toe from big toe.
[2024-11-23] MEDS: SODIUM CHLORIDE 3% 15ML NEB 3 ML IH (19:57)
[2024-11-23 21:15] LABS: POC Glucose,Bedside 411 gm/dL (70-110)
[2024-11-23] MEDS: PREGABALIN 100MG CAPSULE 100 MG PO (21:17)
[2024-11-23] MEDS: INSULIN GLARGINE 100 UNITS/ML 3ML FLEXPEN 50 UNIT SUBCUT (21:17)
[2024-11-23] MEDS: humaLOG 100 UNITS/ML 10ML VIAL (SSI) SUBCUT (21:19)
[2024-11-23 21:47] LABS: Lactic Acid Follow Up (RFLX 1) 2.4 mmol/L (0.7-2.1)
[2024-11-23 21:52] LABS: Troponin I 0.04 ng/ml (0.00-0.034)
[2024-11-23 23:22] LABS: Reflex Lactic (2 hrs) Add Lactic Reflex
[2024-11-24] VITALS (42 sets, daily range): BP systolic 91–140; BP diastolic 51–81; PULSE 74–102; RESP 13–33; TEMP 36.8–38.4; O2SAT 86–95; BMI 26.6
[2024-11-24] MEDS: ACETAMINOPHEN 325MG TAB 650 MG PO (00:07)
[2024-11-24 01:41] LABS: Lactic Acid Follow up (RFLX 2) 1.1 mmol/L (0.7-2.1)
[2024-11-24] MEDS: humaLOG 100 UNITS/ML 10ML VIAL (SSI) SUBCUT ×4 (06:07→20:12)
[2024-11-24 06:24] LABS: POC Glucose,Bedside 154 gm/dL (70-110)
[2024-11-24 06:52] LABS: Hematocrit 42.1 % (42.0-52.0); Hemoglobin 13.8 g/dL (14.1-18.0); Immature Granulocytes % 0.7 %; Mean Corpuscular HGB Conc 32.8 g/dL (31.8-35.4); Mean Corpuscular Hemoglobin 28.5 pg (27.0-31.2); Mean Corpuscular Volume 87.0 fl (80-94); Nucleated Red Blood Cells % 0 %; Platelet Count 309 K/mm3 (142-424); Red Blood Count 4.84 M/mm3 (4.60-6.20); Red Cell Distribution Width-SD 47.5 fL; White Blood Count 14.4 K/mm3 (4.8-10.8)
[2024-11-24 07:10] LABS: Albumin Level 3.1 g/dl (3.5-5.0); Chloride 93 mmol/L (98-107); Potassium 3.1 mmoL/L (3.5-5.1); Sodium 131 mmol/L (136-145)
[2024-11-24 07:12] LABS: Alanine Aminotransferase 11 U/L (12-78); Aspartate Amino Transferase 19 U/L (17-59); Blood Urea Nitrogen 10 mg/dl (9-20); Creatinine Clearance Estimated 93 mL/min (50-200); Creatinine,Serum 0.80 mg/dl (0.66-1.25); Estimated Glomerular Filt Rate 97 ml/min (>60); GFR (African American) 117 ML/MIN (>60)
[2024-11-24 07:13] LABS: Albumin/Globulin Ratio 0.8 (1.1-1.8); Alkaline Phosphatase 104 U/L (38-126); Anion Gap 10.1 mEq/L (5-15); Bilirubin,Total 0.2 mg/dl (0.2-1.3); Calcium 8.3 mg/dl (8.4-10.2); Carbon Dioxide 31 mmol/L (22.0-30.0); Globulin 4.0 g/dL (1.3-3.2); Glucose 156 mg/dl (74-100); Magnesium 1.8 mg/dl (1.6-2.3); Total Protein,Serum 7.1 g/dl (6.3-8.2)
--- NOTE | 2024-11-24 08:12 | EXP.ACUTE.PN ---
Subjective *Date: 11/24/24 *Time: 09:40 Interval history: Feeling somewhat better today, color better in his face. Stable on room air. No nausea or vomiting. Still has pain with deep inspiration on left side. Blood sugar showing improvement this morning at 156. Afebrile this morning but did have a fever of 101 at midnight. Will de-escalate to MedSurg status Medical Exam Vital signs and Labs for Last 24 Hours: Vital Signs Temp Pulse Pulse Pulse Resp BP BP 11/24/24 07:31 98.2 F 11/24/24 07:30 101 H 21 11/24/24 07:15 100 H 16 11/24/24 07:15 11/24/24 07:00 100 H 19 11/24/24 07:00 11/24/24 06:15 85 31 H 11/24/24 06:00 85 17 114/66 11/24/24 05:00 11/24/24 04:00 99.1 F 74 27 H 102/53 L 11/24/24 04:00 74 27 H 11/24/24 04:00 90 11/24/24 03:00 11/24/24 02:01 92 H 33 H 91/61 L 11/24/24 02:00 11/24/24 01:00 11/24/24 00:00 101.1 F H 99 H 19 128/76 11/24/24 00:00 102 H 11/23/24 23:00 11/23/24 22:04 100 H 33 H 151/84 H 11/23/24 21:00 11/23/24 20:00 98.8 F 101 H 33 H 134/72 11/23/24 20:00 11/23/24 20:00 108 H 11/23/24 19:55 105 H 20 11/23/24 19:55 11/23/24 19:00 11/23/24 18:58 107 H 11/23/24 18:46 97.9 F 100 H 18 131/76 11/23/24 18:23 98.6 F 94 H 18 131/78 11/23/24 18:06 105 H 11/23/24 18:00 95 H 131/78 11/23/24 17:31 87 123/75 11/23/24 16:00 93 H 120/68 11/23/24 15:30 100 H 119/67 11/23/24 14:57 98.6 F 110 H 18 130/77 Pulse Ox O2 Del Method 11/24/24 07:31 11/24/24 07:30 93 L Room Air 11/24/24 07:15 92 L Room Air 11/24/24 07:15 92 L Room Air 11/24/24 07:00 93 L Room Air 11/24/24 07:00 Room Air 11/24/24 06:15 91 L 11/24/24 06:00 91 L Room Air 11/24/24 05:00 Room Air 11/24/24 04:00 86 L Room Air 11/24/24 04:00 86 L 11/24/24 04:00 11/24/24 03:00 Room Air 11/24/24 02:01 89 L Room Air 11/24/24 02:00 88 L Room Air 11/24/24 01:00 Room Air 11/24/24 00:00 89 L Room Air 11/24/24 00:00 11/23/24 23:00 Room Air 11/23/24 22:04 91 L Room Air 11/23/24 21:00 Room Air 11/23/24 20:00 91 L Room Air 11/23/24 20:00 91 L Room Air 11/23/24 20:00 11/23/24 19:55 11/23/24 19:55 91 L Room Air 11/23/24 19:00 Room Air 11/23/24 18:58 11/23/24 18:46 95 Room Air 11/23/24 18:23 Room Air 11/23/24 18:06 97 Room Air 11/23/24 18:00 95 Room Air 11/23/24 17:31 95 Room Air 11/23/24 16:00 93 L Room Air 11/23/24 15:30 93 L Room Air 11/23/24 14:57 95 Room Air Intake and Output 11/23/24 11/24/24 11/24/24 23:59 07:59 15:59 Intake Total 1350 / 1550 200 / 200 Output Total 400 / 675 575 / 575 Balance 950 / 875 -375 / -375 Intake: Intake, Oral Amount 200 / 200 Intake, Total IV Amount 1350 / 1350 Azithromycin 500 mg In 0.9 % 250 / 250 Sodium Chloride 250 ml @ 250 mls/hr IV Q24H [facility] Rx#:[id number] Ceftriaxone Sodium 2 gm In 0.9 100 / 100 % Sodium Chloride 100 ml @ 200 mls/hr IV ONCE ONE Rx#:[id number] Lactated Ringers 1000ML 1,000 1000 / 1000 ml @ 999 mls/hr IV .Q1H1M ONE Rx#:[id number] Output: Output, Urine Amount 400 / 675 575 / 575 Other: Number of Unmeasured Voids 0 0 Weight 88.989 kg 89.04 kg Patient Weight 11/24/24 23:59 Weight 89.04 kg Laboratory Results - last 24 hr 11/23/24 15:10: WBC 12.5 H, RBC 4.89, Hgb 14.2, Hct 42.0, MCV 85.9, MCH 29.0, MCHC 33.8, RDW 14.6, Plt Count 324, MPV 10.8 H, Neut % (Auto) 82.6 H, Lymph % (Auto) 9.9 L, Gilliam % (Auto) 5.7, Eos % (Auto) 0.7, Baso % (Auto) 0.3, Neut # (Auto) 10.3 H, Lymph # (Auto) 1.2, Gilliam # (Auto) 0.7, Eos # (Auto) 0.1, Baso # (Auto) 0.0, D-Dimer 2.21 H, Sodium 125 L, Potassium 3.0 L, Chloride 85 L, Carbon Dioxide 29, Anion Gap 14.0, BUN 8 L, Creatinine 0.80, Estimated Creat Clear 94, Estimated GFR 97, Est GFR ( Amer) 117, Glucose 564 H*, Calcium 8.3 L, Magnesium 1.6, Total Bilirubin 0.5, AST 22, ALT 23, Alkaline Phosphatase 104, Troponin I 0.04 H, NT-Pro-B Natriuret Pep 1670 H, Total Protein 7.6, Albumin 3.4 L, Globulin 4.2 H, Albumin/Globulin Ratio 0.8 L, Plasma/Serum Alcohol < 10, Acetone Level None detected, HCV Ab JOS w/Rflx PCR Qn Negative, HIV Ag/Ab Combo Qual Negative 11/23/24 15:19: VBG pH 7.47 H, VBG pCO2 37.1, VBG pO2 95.9 H, VBG HCO3 26.3, VBG Total CO2 27.5 H, VBG O2 Saturation 97.9 H, VBG Base Excess 2.7 H, VBG Lactic Acid 3.7 H 11/23/24 16:01: SARS-CoV-2 (PCR) Not detected, Influenza Type A (PCR) Not detected, Influenza Type B (PCR) Not detected, RSV (PCR) Not detected, Rhinovirus (PCR) Not detected 11/23/24 18:30: Troponin I 0.04 H 11/23/24 18:36: POC Glucose 341 H* 11/23/24 21:08: POC Glucose 411 H* 11/23/24 21:13: Lactate 2.4 H, Troponin I 0.04 H 11/24/24 01:14: Lactate 1.1 11/24/24 06:03: POC Glucose 154 H 11/24/24 06:35: WBC 14.4 H, RBC 4.84, Hgb 13.8 L, Hct 42.1, MCV 87.0, MCH 28.5, MCHC 32.8, RDW 14.7, Plt Count 309, MPV 10.7 H, Neut % (Auto) 73.1, Lymph % (Auto) 18.0, Gilliam % (Auto) 6.3, Eos % (Auto) 1.6, Baso % (Auto) 0.3, Neut # (Auto) 10.5 H, Lymph # (Auto) 2.6, Gilliam # (Auto) 0.9, Eos # (Auto) 0.2, Baso # (Auto) 0.0, Sodium 131 L, Potassium 3.1 L, Chloride 93 L, Carbon Dioxide 31 H, Anion Gap 10.1, BUN 10, Creatinine 0.80, Estimated Creat Clear 93, Estimated GFR 97, Est GFR ( Amer) 117, Glucose 156 H D, Calcium 8.3 L, Magnesium 1.8 D, Total Bilirubin 0.2, AST 19, ALT 11 L D, Alkaline Phosphatase 104, Total Protein 7.1, Albumin 3.1 L, Globulin 4.0 H, Albumin/Globulin Ratio 0.8 L I & O for Labs for Last 24 Hours: Intake & Output 11/21/24 11/22/24 11/23/24 11/24/24 23:59 23:59 23:59 23:59 Intake Total 1350 / 1550 200 / 200 Output Total 400 / 675 575 / 575 Balance 950 / 875 -375 / -375 Weight 88.989 kg 89.04 kg Constitutional: Present no acute distress, average body habitus, chronically ill appearing and cooperative Head: Present atraumatic and normocephalic ENT: Present normal exam Respiratory: Present prolonged expiratory phase, wheezes (Faint end expiratory), crackles (Left side) and normal respiratory effort; Absent respiratory distress Cardiac: Present Reg Rate and Rhythm GI: Present soft and normal bowel sounds; Absent distention or tenderness Extremities: Present normal inspection and full ROM Comment:: Varicose veins prominent left leg Skin: Present intact; Absent erythema Neuro: Present Grossly Intact, alert, awake, oriented x 3 and moves all extremities Assessment and Plan *Assessment and plan (1) Sepsis: Status: Acute Category: Medical Code(s): A41.9 - Sepsis, unspecified organism (2) Pneumonia: Status: Acute Category: Medical Code(s): J18.9 - Pneumonia, unspecified organism (3) Acute hyponatremia: Status: Acute Category: Medical Code(s): E87.1 - Hypo-osmolality and hyponatremia (4) Acute hypokalemia: Status: Acute Category: Medical Code(s): E87.6 - Hypokalemia (5) Parapneumonic effusion: Status: Acute Category: Medical Code(s): J18.9 - Pneumonia, unspecified organism; J91.8 - Pleural effusion in other conditions classified elsewhere (6) Current smoker: Status: Acute Category: Social Hx Code(s): F17.200 - Nicotine dependence, unspecified, uncomplicated (7) Hyperglycemia: Status: Acute Category: Medical Code(s): R73.9 - Hyperglycemia, unspecified (8) Hypertension: Status: Acute Qualifiers: Hypertension type: unspecified Qualified Code(s): I10 - Essential (primary) hypertension Category: Medical Code(s): I10 - Essential (primary) hypertension (9) Diabetic neuropathy: Status: Acute Qualifiers: Diabetes mellitus complication detail: diabetic autonomic neuropathy Diabetes mellitus type: type 2 Qualified Code(s): E11.43 - Type 2 diabetes mellitus with diabetic autonomic (poly)neuropathy Category: Medical Code(s): E11.40 - Type 2 diabetes mellitus with diabetic neuropathy, unspecified (10) Diabetes: Status: Acute Qualifiers: Diabetes mellitus complication status: with other specified complication Diabetes 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 Found to have significant pneumonia and sepsis on arrival along with hyperglycemia/uncontrolled diabetes. Discussed case with ER physician, request admission for IV antibiotics and further treatment of pneumonia, sepsis, electrolyte disturbances and uncontrolled diabetes. I decided admit to stepdown level of care for further management. PSI/port score of 95, class IV risk. Showing some improvement, will de-escalate to MedSurg today. Stable on room air. Continues to require inpatient management. Problems addressed as follows: Sepsis Complicated pneumonia Parapneumonic effusion - On admission: White count elevated 12.5, tachycardic consistently even after IV fluids. Pneumonia on imaging. Suspect bacterial in etiology. - Blood cultures and sputum culture pending. Urine strep antigen pending. -Continue Zosyn 4.5 g IV every 6 hours and azithromycin 500 mg IV daily. -DuoNebs as needed every 6 hours -White count increased to 14.4, hemoglobin 13.8. Kidney function stable BUN 10, creatinine 0.8. - Smokes daily, nicotine patch as needed 21 mg daily - Repeat CBC, CMP, magnesium ordered for the morning. Type II NSTEMI: Troponin 0.04, BNP 1600. Suspect elevated troponin secondary to stress of pneumonia. No chest pain. Troponins flat on serial monitoring. Hyponatremia Hypokalemia Hyperglycemia Poorly controlled diabetes - Uncontrolled diabetes. Glucose 564, sodium 125, potassium 3.0 on admission - Improved this morning with glucose 156, potassium 3.1, sodium 131. - Continue replacement per electrolyte per protocol - Continue sliding scale insulin, high intensity, with fingersticks ACHS. - Continue long-acting insulin glargine 50 units nightly - Holding metformin in the setting of elevated lactate and sepsis - Discontinue CIWA's, no significant scores. Mood disorder: Continue Cymbalta 60 mg daily, Prozac 10 mg daily History of paroxysmal A-fib, in sinus rhythm per my review of EKG. - Will anticoagulate with Lovenox 40 mg daily. Holding home diltiazem due to normal blood pressure and sepsis, reevaluate in the morning -Holding home lisinopril - Patient noncompliant with his Eliquis at home. Consider resuming at discharge Diabetic neuropathy - Resume Lyrica 100 mg 3 times a day, reevaluate dose adjustment pending reconciliation of home med rec -Tylenol as needed 625 mg every 4 hours for mild pain or fever - Hydrocodone 5 mg/325mg as needed every 6 hours for moderate to severe pain Full code Diabetic diet Prophylatic Lovenox
--- NOTE | 2024-11-24 08:30 | PC.NURSE ---
CIWA of 0 this morning. Primary RN notified . Per jose Betts to discontinue CIWA's. Continuation of care plan.
[2024-11-24] MEDS: PIPERACILLIN/TAZO 4.5 GM in 0.9 % SODIUM CHLORIDE 100 ML IV ×3 (08:42→20:11)
[2024-11-24] MEDS: FLUOXETINE 10MG CAPSULE 10 MG PO (08:46)
[2024-11-24] MEDS: POTASSIUM CHLORIDE 20MEQ TAB 40 MEQ PO ×3 (08:47→16:18)
[2024-11-24] MEDS: PREGABALIN 100MG CAPSULE 100 MG PO ×3 (09:45→20:11)
--- NOTE | 2024-11-24 10:02 | HMH.PHAINT1 ---
Pharmacy Intervention Comments: MEDICATION RECONCILIATION COMPLETED ON PATIENT USING EXTERNAL FILL HISTORY FROM PHARMACY, MAINOR REPORT, AND LIST FROM PCP OFFICE. QUESTION PATIENT'S COMPLIANCE WITH CHRONIC MEDICATIONS. MOST HAVE ONLY BEEN FILLED ONCE IN THE LAST YEAR. -CRISTINA OZUNA PHARMD
[2024-11-24 10:59] LABS: POC Glucose,Bedside 157 gm/dL (70-110)
[2024-11-24] MEDS: HYDROCODONE/APAP 5/325 MG TABLET 1 TAB PO ×2 (13:12→21:00)
--- NOTE | 2024-11-24 13:20 | PC.NURSE ---
Urine sample collected for Streptococcus Antigen. Lab staff picked up urine sample from ICU at this time. Continuation of care plan.
[2024-11-24] MEDS: AZITHROMYCIN 500 MG in 0.9 % SODIUM CHLORIDE 250 ML 250 MG IV (14:28)
[2024-11-24 16:14] LABS: POC Glucose,Bedside 220 gm/dL (70-110)
--- NOTE | 2024-11-24 16:42 | PC.NURSE ---
Report given to PURA Lemus. Patient transferred via wheelchair to Medical Surgical room 205 with Medical Surgical staff. Continuation of care plan.
[2024-11-24] MEDS: INSULIN GLARGINE 100 UNITS/ML 3ML FLEXPEN 55 UNIT SUBCUT (20:11)
[2024-11-24 20:20] LABS: POC Glucose,Bedside 208 gm/dL (70-110)
[2024-11-25] VITALS: BP 114/67; PULSE 83; RESP 16; TEMP 36.9; O2SAT 95
[2024-11-25] MEDS: PIPERACILLIN/TAZO 4.5 GM in 0.9 % SODIUM CHLORIDE 100 ML IV ×2 (01:21→08:33)
[2024-11-25 04:00] VITALS: BP 108/63; PULSE 80; RESP 16; TEMP 36.6; O2SAT 95; BMI 27.1
--- NOTE | 2024-11-25 04:04 | PC.NURSE ---
Alert and oriented. IV abx per apr. Complained of lower back pain 1 time, treated per apr. No other complaints. ACHS fingerstick. Room air, CPAP when sleeping. Ambulates to the restroom. Call light in reach.
[2024-11-25] MEDS: humaLOG 100 UNITS/ML 10ML VIAL (SSI) SUBCUT ×2 (06:17→10:40)
[2024-11-25 06:19] LABS: POC Glucose,Bedside 216 gm/dL (70-110)
[2024-11-25 07:20] LABS: Hematocrit 41.0 % (42.0-52.0); Hemoglobin 13.4 g/dL (14.1-18.0); Immature Granulocytes % 0.9 %; Mean Corpuscular HGB Conc 32.7 g/dL (31.8-35.4); Mean Corpuscular Hemoglobin 28.4 pg (27.0-31.2); Mean Corpuscular Volume 86.9 fl (80-94); Nucleated Red Blood Cells % 0 %; Platelet Count 347 K/mm3 (142-424); Red Blood Count 4.72 M/mm3 (4.60-6.20); Red Cell Distribution Width-SD 46.7 fL; White Blood Count 12.2 K/mm3 (4.8-10.8)
[2024-11-25 08:00] VITALS: BP 111/70; PULSE 94; RESP 18; TEMP 36.7; O2SAT 95
[2024-11-25 08:12] LABS: Albumin Level 3.0 g/dl (3.5-5.0); Chloride 96 mmol/L (98-107); Potassium 4.0 mmoL/L (3.5-5.1); Sodium 130 mmol/L (136-145)
[2024-11-25 08:14] LABS: Alanine Aminotransferase 10 U/L (12-78); Aspartate Amino Transferase 22 U/L (17-59)
[2024-11-25 08:15] LABS: Albumin/Globulin Ratio 0.7 (1.1-1.8); Alkaline Phosphatase 81 U/L (38-126); Anion Gap 10.0 mEq/L (5-15); Bilirubin,Total 0.3 mg/dl (0.2-1.3); Calcium 8.2 mg/dl (8.4-10.2); Carbon Dioxide 28 mmol/L (22.0-30.0); Globulin 4.1 g/dL (1.3-3.2); Glucose 198 mg/dl (74-100); Magnesium 2.0 mg/dl (1.6-2.3); Total Protein,Serum 7.1 g/dl (6.3-8.2)
[2024-11-25 08:19] LABS: Blood Urea Nitrogen 10 mg/dl (9-20)
[2024-11-25] MEDS: FLUOXETINE 10MG CAPSULE 10 MG PO (08:31)
[2024-11-25] MEDS: PREGABALIN 100MG CAPSULE 100 MG PO (08:31)
--- NOTE | 2024-11-25 08:41 | XR_ITS ---
PROCEDURE INFORMATION: Exam: XR Chest Exam date and time: 11/25/2024 9:46 AM Age: 64 years old Clinical indication: Shortness of breath and other: Eval effusion TECHNIQUE: Imaging protocol: Radiologic exam of the chest. Views: 1 view. COMPARISON: CT ANGIO CHEST PE PROTOCOL 11/23/2024 4:36 PM chest radiographs dated 11/23/2024. FINDINGS: Lungs: Mild increased size and density of the left mid lung consolidation concerning for worsening of infectious process. Pleural spaces: Stable small dependent left pleural effusion. Heart/Mediastinum: Unremarkable. No cardiomegaly. Bones/joints: Unremarkable. IMPRESSION: Mild increased size and density of the left mid lung consolidation concerning for worsening of infectious process.
[2024-11-25 09:22] LABS: Creatinine Clearance Estimated 95 mL/min (50-200); Creatinine,Serum 0.80 mg/dl (0.66-1.25); Estimated Glomerular Filt Rate 97 ml/min (>60); GFR (African American) 117 ML/MIN (>60)
--- NOTE | 2024-11-25 10:10 | EXP.DC.SUM ---
General Admission date:: 11/23/24 Discharge date: 11/25/24 HPI HPI HPI: 64-year-old male with history of diabetes, CAD, tobacco use disorder who presents with 3 days of cough and pain when he coughs in his left chest. Denies nausea or vomiting. Cough somewhat productive. Found to have elevating blood sugar at home as well. On arrival to the ER, workup initiated finding white count of 12.5, glucose of 564. Sodium 125. Chest CTA showing left-sided pneumonia and upper and lower lobe along with parapneumonic effusion. Patient tachycardic. Meeting sepsis criteria. Initiated on broad-spectrum antibiotics. Medicine consulted for admission and further management. On evaluation, patient denies any fever. Seemed surprised to learn he has pneumonia. Continues to smoke approximately three quarters of a pack of cigarettes a day. Denies alcohol dependence. States has been having hard time with managing his diabetes lately and has numbers been going up even though he is been taking his insulin. Has mixed compliance with treatment for his A-fib. States he has pain in his left lower chest with deep inspiration. Sputum is thick and yellow. Denies confusion, headache, changes in vision, syncope. Hospital Course Hospital Course Hospital Course: 64-year-old male who presented with hyperglycemia, cough, chest pain with cough. Found to have significant pneumonia and sepsis on arrival along with hyperglycemia/uncontrolled diabetes. Discussed case with ER physician, request admission for IV antibiotics and further treatment of pneumonia, sepsis, electrolyte disturbances and uncontrolled diabetes. I decided admit to stepdown level of care for further management. PSI/port score of 95, class IV risk. Showed improvement with IV antibiotics. Patient's white count improving. Remained on room air during entire admission. No nausea or vomiting. Tolerating p.o. intake. Will discharge home to complete antibiotic course. Follow-up with PCP later this week. Needs follow-up with pulmonology in the next 2 to 4 weeks to reevaluate resolution of effusion present on admission. Problems addressed as follows: Sepsis Complicated pneumonia Parapneumonic effusion - On admission: White count elevated 12.5, tachycardic consistently even after IV fluids. Pneumonia on imaging. Suspect bacterial in etiology. Blood and sputum cultures were obtained. Negative at time of discharge. Initiated on Zosyn and azithromycin for broad empiric coverage. Completed 3 doses of azithromycin during admission for total of 1500 mg. Will transition to Augmentin to complete 7 days total of antibiotics for pneumonia. CT initially on admission showed effusion and left lower lobe consolidation. Repeat chest x-ray on day of discharge showed left-sided airspace disease but effusion appears to have resolved/or is resolving. Given stable white count at 12 after peaking at 14, patient's clinical appearance, stability on room air, afebrile state for over 24 hours, will discharge home with plan for close follow-up. Type II NSTEMI: Troponin 0.04, BNP 1600. Suspect elevated troponin secondary to stress of pneumonia. No chest pain. Troponins flat on serial monitoring. Hyponatremia Hypokalemia Hyperglycemia Poorly controlled diabetes - Uncontrolled diabetes. Glucose 564, sodium 125, potassium 3.0 on admission. Made adjustments to his diabetes regimen. Tolerated sliding scale insulin with 5 to 7 units per meals. Tolerated long-acting insulin as well. Morning glucose 198 on day of discharge. Recommend continuing basal insulin at 60 units nightly. Encourage patient to not miss his doses. Will also initiate mealtime insulin 5 to 7 units 3 times a day with meals. Okay to resume metformin upon returning home. A1c on 11/08 of 12.9. Mood disorder: Continue Cymbalta 60 mg daily, Prozac 10 mg daily History of paroxysmal A-fib, in sinus rhythm per my review of EKG. - Held diltiazem during admission. Patient remained in sinus rhythm during admission. Patient has nonadherent to his Eliquis regimen. Recommend resuming diltiazem after returning home. Would benefit from further discussion with his PCP about initiating DOAC therapy Diabetic neuropathy - Continue home Lyrica, dose was reduced to 100 mg 3 times a day during admission. Okay to increase to 200 mg 3 times a day at time of discharge to home regimen. Total time spent on discharge 32 minutes in counseling, documentation, chart review, and direct care with patient. Exam Data for Last 24 hours Vital signs and Labs for Last 24 Hours: Temp Pulse Resp BP Pulse Ox O2 Del Method 98.1 F 94 H 18 111/70 95 Room Air 11/25/24 08:00 11/25/24 08:00 11/25/24 08:00 11/25/24 08:00 11/25/24 08:00 11/25/24 09:00 Laboratory Results - last 24 hr 11/24/24 10:45: POC Glucose 157 H 11/24/24 16:01: POC Glucose 220 H 11/24/24 20:04: POC Glucose 208 H 11/25/24 06:13: POC Glucose 216 H 11/25/24 06:30: WBC 12.2 H, RBC 4.72, Hgb 13.4 L, Hct 41.0 L, MCV 86.9, MCH 28.4, MCHC 32.7, RDW 14.7, Plt Count 347, MPV 10.9 H, Neut % (Auto) 69.1, Lymph % (Auto) 20.6, [place] % (Auto) 4.1, Eos % (Auto) 4.9, Baso % (Auto) 0.4, Neut # (Auto) 8.4 H, Lymph # (Auto) 2.5, [place] # (Auto) 0.5, Eos # (Auto) 0.6 H, Baso # (Auto) 0.1, Sodium 130 L, Potassium 4.0 D, Chloride 96 L, Carbon Dioxide 28, Anion Gap 10.0, BUN 10, Creatinine 0.80, Estimated Creat Clear 95, Estimated GFR 97, Est GFR ( Amer) 117, Glucose 198 H D, Calcium 8.2 L, Magnesium 2.0 D, Total Bilirubin 0.3, AST 22, ALT 10 L, Alkaline Phosphatase 81, Total Protein 7.1, Albumin 3.0 L, Globulin 4.1 H, Albumin/Globulin Ratio 0.7 L I & O for Last 24 hours: Intake & Output 11/22/24 11/23/24 11/24/24 11/25/24 23:59 23:59 23:59 23:59 Intake Total 1350 / 1550 1928 / 2068 340 / 340 Output Total 400 / 675 1105 / 1105 0 / 0 Balance 950 / 875 823 / 963 340 / 340 Weight 88.989 kg 89.04 kg 90.974 kg Microbiology Reports for the Last 24 Hours: Microbiology 11/23/24 15:49 Blood Blood Culture - Preliminary NO GROWTH AFTER 24 HOURS 11/23/24 15:51 Blood Blood Culture - Preliminary NO GROWTH AFTER 24 HOURS Constitutional Constitutional: no acute distress, average body habitus, chronically ill appearing and cooperative *Routine HEENT Exam Head: Present normocephalic Eye: Present EOMI and PERRL ENT: Present mucous membranes moist *Routine Neck Exam Neck: Present supple; Absent lymphadenopathy *Routine Respiratory Exam Respiratory: Present prolonged expiratory phase and crackles (Interval improvement in left lower lung field crackles); Absent rhonchi or wheezes *Routine Cardiovascular Exam Cardiovascular: Present RRR *Routine Abdominal Exam Abdominal: Present soft and normoactive bowel sounds; Absent tenderness *Routine Rectal Exam Patient deferred: visual exam *Routine Exam Patient deferred: penile exam *Routine Extremities Exam Extremities: Absent cyanosis, clubbing or edema *Routine Skin Exam Skin: Present intact and warm; Absent rash *Routine Neurological Exam Neurological: Present alert, oriented X3 and moving all extremities; Absent altered mental status Results Data Completed and Pending Labs on day of discharge: Labs from last 24 hours 11/25/24 11/25/24 11/24/24 06:30 06:13 20:04 WBC 12.2 H RBC 4.72 Hgb 13.4 L Hct 41.0 L MCV 86.9 MCH 28.4 MCHC 32.7 RDW 14.7 Plt Count 347 MPV 10.9 H Neut % (Auto) 69.1 Lymph % (Auto) 20.6 [place] % (Auto) 4.1 Eos % (Auto) 4.9 Baso % (Auto) 0.4 Neut # (Auto) 8.4 H Lymph # (Auto) 2.5 [place] # (Auto) 0.5 Eos # (Auto) 0.6 H Baso # (Auto) 0.1 Sodium 130 L Potassium 4.0 D Chloride 96 L Carbon Dioxide 28 Anion Gap 10.0 BUN 10 Creatinine 0.80 Estimated Creat Clear 95 Estimated GFR 97 Est GFR ( Amer) 117 Glucose 198 H D POC Glucose 216 H 208 H Calcium 8.2 L Magnesium 2.0 D Total Bilirubin 0.3 AST 22 ALT 10 L Alkaline Phosphatase 81 Total Protein 7.1 Albumin 3.0 L Globulin 4.1 H Albumin/Globulin Ratio 0.7 L 11/24/24 11/24/24 16:01 10:45 WBC RBC Hgb Hct MCV MCH MCHC RDW Plt Count MPV Neut % (Auto) Lymph % (Auto) [place] % (Auto) Eos % (Auto) Baso % (Auto) Neut # (Auto) Lymph # (Auto) [place] # (Auto) Eos # (Auto) Baso # (Auto) Sodium Potassium Chloride Carbon Dioxide Anion Gap BUN Creatinine Estimated Creat Clear Estimated GFR Est GFR ( Amer) Glucose POC Glucose 220 H 157 H Calcium Magnesium Total Bilirubin AST ALT Alkaline Phosphatase Total Protein Albumin Globulin Albumin/Globulin Ratio Preliminary micro results at discharge 11/23/24 15:49 Blood Culture - Preliminary Blood NO GROWTH AFTER 24 HOURS 11/23/24 15:51 Blood Culture - Preliminary Blood NO GROWTH AFTER 24 HOURS DS: Diagnosis Discharge Diagnosis (1) Sepsis: Status: Acute Code(s): A41.9 - Sepsis, unspecified organism Qualifiers: Sepsis type: sepsis due to unspecified organism Sepsis acute organ dysfunction status: without acute organ dysfunction Qualified Code(s): A41.9 - Sepsis, unspecified organism (2) Pneumonia: Status: Acute Code(s): J18.9 - Pneumonia, unspecified organism Qualifiers: Pneumonia type: due to unspecified organism Laterality: left Lung location: lower lobe of lung Qualified Code(s): J18.9 - Pneumonia, unspecified organism (3) Acute hyponatremia: Status: Acute Code(s): E87.1 - Hypo-osmolality and hyponatremia (4) Acute hypokalemia: Status: Acute Code(s): E87.6 - Hypokalemia (5) Parapneumonic effusion: Status: Acute Code(s): J18.9 - Pneumonia, unspecified organism; J91.8 - Pleural effusion in other conditions classified elsewhere (6) Current smoker: Status: Acute Code(s): F17.200 - Nicotine dependence, unspecified, uncomplicated (7) Hyperglycemia: Status: Acute Code(s): R73.9 - Hyperglycemia, unspecified (8) Hypertension: Status: Acute Code(s): I10 - Essential (primary) hypertension Qualifiers: Hypertension type: unspecified Qualified Code(s): I10 - Essential (primary) hypertension (9) Diabetic neuropathy: Status: Acute Code(s): E11.40 - Type 2 diabetes mellitus with diabetic neuropathy, unspecified Qualifiers: Diabetes mellitus complication detail: diabetic autonomic neuropathy Diabetes mellitus type: type 2 Qualified Code(s): E11.43 - Type 2 diabetes mellitus with diabetic autonomic (poly)neuropathy (10) Diabetes: Status: Acute Code(s): E11.9 - Type 2 diabetes mellitus without complications Qualifiers: Diabetes mellitus complication status: with other specified complication Diabetes mellitus intermodal customer service insulin use: unspecified intermodal customer service insulin use status Diabetes mellitus type: type 2 Qualified Code(s): E11.69 - Type 2 diabetes mellitus with other specified complication (11) A-fib: Status: Chronic Code(s): I48.91 - Unspecified atrial fibrillation Qualifiers: Atrial fibrillation type: paroxysmal Qualified Code(s): I48.0 - Paroxysmal atrial fibrillation Meds Home Medications and Allergies Home Medications ?Medication ?Instructions ?Recorded ?Confirmed ?Type pen needle, diabetic 31 gauge x #100 ea 01/19/23 11/23/24 Rx 3/16 (BD Ultra-Fine Mini Pen Needle) atorvastatin 80 mg tablet 80 mg PO HS 03/15/23 11/23/24 History diltiazem HCl 240 mg 240 mg PO DAILY 02/03/24 11/24/24 History capsule,extended release 24 hr fluoxetine 10 mg tablet 10 mg PO DAILY #30 tabs 02/03/24 11/23/24 Rx pregabalin 200 mg capsule 200 mg PO TID 02/03/24 11/23/24 History metformin 1,000 mg tablet 1,000 mg PO BID #180 tabs 02/28/24 11/23/24 Rx insulin glargine U-300 conc 300 60 unit (0.2 mL) SQ HS Diabetes #9 03/19/24 11/24/24 Rx unit/mL (3 mL) subcutaneous pen mL (Toujeo Max U-300 SoloStar) blood-glucose sensor (Dexcom G6 #3 ea 07/03/24 11/23/24 Rx Sensor device) blood-glucose transmitter (Dexcom #1 ea 07/03/24 11/23/24 Rx G6 Transmitter device) blood-glucose,sports internship,cont #1 ea 07/03/24 11/23/24 Rx (Dexcom G6 Pool Table Operator) meloxicam 7.5 mg tablet 7.5 mg PO DAILY 11/08/24 11/23/24 History duloxetine 60 mg capsule,delayed 60 mg PO DAILY 11/24/24 11/24/24 History release amoxicillin 875 mg-potassium 1 tab PO BID 5 days #10 tabs 11/25/24 Rx clavulanate 125 mg tablet insulin lispro 100 unit/mL 7 unit (0.07 mL) SQ TIDWMEAL #15 mL 11/25/24 Rx subcutaneous pen (Humalog KwikPen (U-100) Insulin) pen needle, diabetic 31 gauge x #100 ea 11/25/24 Rx / New Prescriptions to Start Prescriptions: amoxicillin-pot clavulanate Omer Read insulin lispro [Humalog KwikPen Insulin] Omer Read pen needle, diabetic Omer Read Allergies Allergy/AdvReac Type Severity Reaction Status Date / Time aspirin Allergy Unknown Vomiting Verified 11/23/24 13:11 codeine (CODEINE) Allergy Unknown Vomiting Verified 11/23/24 13:11 Discharge Plan Disposition Patient Disposition: Home, Self-Care Condition: Fair Follow up Plan Follow up with: Mango Castillo MD [Primary Care Provider, Internal Medicine] - 1 week Kusum Silverman MD [Physician, Pulmonology] - Enter time for follow up Referral Note: call tuesday for appointment to follow-up in 2-4 weeks due to effusion and monitoring of resolution. Prescriptions/Medication Reconciliation: New amoxicillin-pot clavulanate 875-125 mg tablet 1 tab PO BID 5 Days Qty: 10 0RF Rx Instructions: start on evening of 11/25 insulin lispro [Humalog KwikPen Insulin] 100 unit/mL insulin pen 7 unit SQ TIDWMEAL Qty: 15 0RF (DME) pen needle, diabetic 31 gauge x 1/4 needle See Rx Instructions .ROUTE .MEDSUPPLY Qty: 100 0RF Rx Instructions: 3x a day with short acting insulin Continued (DME) Dexcom G6 Sensor Device See Rx Instructions .Route Qty: 3 0RF Rx Instructions: As directed (DME) Dexcom G6 Pool Table Operator Misc See Rx Instructions .Route Qty: 1 0RF Rx Instructions: As directed (DME) Dexcom G6 Transmitter Device See Rx Instructions .Route Qty: 1 0RF Rx Instructions: As directed diltiazem HCl 240 mg capsule,extended release 24hr 240 mg PO DAILY Patient Comments: TAKE 1 CAPSULE 1 TIME EACH DAY pregabalin 200 mg capsule 200 mg PO TID Patient Comments: TAKE 1 CAPSULE EVERY 8 HOURS fluoxetine 10 mg tablet 10 mg PO DAILY Qty: 30 2RF meloxicam 7.5 mg tablet 7.5 mg PO DAILY (DME) pen needle, diabetic [BD Ultra-Fine Mini Pen Needle] 31 gauge x 3/16 needle See Rx Instructions .Route Qty: 100 2RF Rx Instructions: As directed metformin 1,000 mg tablet 1,000 mg PO BID Qty: 180 3RF insulin glargine U-300 conc [Toujeo Max U-300 SoloStar] 300 unit/mL (3 mL) insulin pen 60 unit SQ HS Qty: 9 3RF duloxetine 60 mg capsule,delayed release(DR/EC) 60 mg PO DAILY Patient Comments: TAKE 1 CAPSULE BY MOUTH ONCE DAILY atorvastatin 80 mg tablet 80 mg PO HS Problem Reconciliation Problems Reviewed?: Yes Patient Discharge Instructions ACTIVITY: Continue current activity DIET: continue same diet Patient Instructions: DI for Pneumonia in Adults, DI for Hypokalemia, DI for Sepsis in Adults, DI for Pleural Effusion, Stop Light Pneumonia Print Language: Tamazight Providers Primary Care Provider: Mango Castillo Admit Provider: Omer Read Attending Provider: Omer Read
[2024-11-25] MEDS: AZITHROMYCIN 250MG TABLET 500 MG PO (10:33)
[2024-11-25 16:27] LABS: POC Glucose,Bedside 218 gm/dL (70-110)
--- OUTSIDE RECORDS SUMMARY | 2024-11-26 09:33 | XMS_ITS | Clinical Summary ---
Author Organization [facility] Address [address] [place] [address] Phone Care Team Providers Care Regional Engineer Name Role Phone Unavailable Unavailable Conditions or Problems No information available. Medications No information available. Medications Administered No information available. Allergies, Adverse Reactions, Alerts No information available. Results No information available. Plan of Care No information available. Procedures No information available. Vital Signs No information available. Immunizations No information available. Advance Directives No information available.
--- OUTSIDE RECORDS SUMMARY | 2024-11-26 09:34 | XMS_ITS | Referral Summary ---
Author Organization [employer] ([place], [place], [place], [place]) Address [address] [place] [address] Care Team Providers Care Payment Specialist Name Role Phone Unavailable Primary Care Provider [...] Date Ang rded Speak language other than Portuguese at home Not on file 12/19/2023 Want [...]
--- OUTSIDE RECORDS SUMMARY | 2024-11-26 09:34 | XMS_ITS | Encounter Summary ---
Author Organization Healthcare Address [address] [place] [address] Care Team Providers Care Jawbone Puller Name Role Phone Gudelia Vidal Primary Care Provider [phone] Darrick Villela MD Primary Care Provider [phone] Reason for Visit * Reason Comments Med Refill Encounter Details Date Type Department Care Team (Late st Contact Info) Description 04/01/2021 [facility] [address] [place] [address] Ashly Kang, RN TRANSPLANT [address] [facility] [address] [place] [address] Social History Tobacco Use Types [...] on filedocumented in this encounter Care Teams Jawbone Puller Relationship Specialty Start Date End Date Gudelia Vidal PA [address] [place] [address] PCP - General 07/04/20 06/01/22 Darrick Villela MD [address] [place] [address] PCP - General Internal Medicine 06/02/22 documented as of this encounter
--- OUTSIDE RECORDS SUMMARY | 2024-11-26 09:34 | XMS_ITS | Clinical Summary ---
Author Organization [facility] Address [address] [place] [address] Care Team Providers Care Computer Aided Drafter Name Role Phone Mango Castillo MD Primary Care Provider [phone] Allergies Active Allergy Reactions Criticality Noted Date [...] 80 MG tabletIndications :Coronary artery disease involving mary's igloo coronary artery of mary's igloo heart without angina pectoris Take 1 tablet [...] (04/08/2023 11:24 AM EST): Patient seen at [facility] for Afib with RVR. He was placed [...] Patient has his new machine from the [employer]. Patient states he really like the new [...] (05/24/2022): Added automatically from request for surgery [id number] Bronchiectasis without acute exacerbation 2021 Centrilobular emphysema 06/12/2021 Cavitating mass in upper lobe of lung 03/05/2021 Overview (03/05/2021): Added automatically from request for surgery [id number] Coronary artery disease invo lving mary's igloo heart s/p stents x2 03/04/2021 Assessment & [...] risk and benefits -Left heart cath at [facility] - Restart atorvastatin 80 mg once [...] Completed 06/06/2017 Medical Devices Implanted Type Area Commercial [employer]one Software Developer Device Identifier Shelf Expiration Date Model / Serial / Lot Heart Stents X2 Description:Around 2015 Procedures Procedure Name Priority Date/Time Associated Diagnosis Comments HEMOGLOBIN A1C STAT 01/10/2024 9:56 AM EST from Last 3 Months or Most Recently Relevant to Health Maintenance Results * (ABNORMAL) Hemoglobin A1c (01/10/2024 9:56 AM EST) Hemoglobin A1C 11.50(H) 4.80 - 5.60 % 01/10/2024 10:36 AM EST [facility] Blood Line / Unknown 01/10/2024 9: 56 AM EST 01/10/2024 10:04 AM EST Narrative [facility] - 01/10/2024 10:36 AM EST Hemoglobin A1C Ranges: Increased Risk for Diabetes 5.7% to 6.4% Diabetes >= 6.5% Diabetic Goal < 7.0% Digna Tariq APRN LAB BLOOD ORDERABLES Final Result [facility]
[address] [place] [address], from Last 3 Months or Most Recently Relevant to Health Maintenance Insurance MEDICARE ADVANTAGE Care Teams Computer Aided Drafter Relationship Specialty Start Date End Date Mango Castillo MD [address] [place] [address] PCP - General Family Medicine 04/05/23
--- OUTSIDE RECORDS SUMMARY | 2024-11-26 09:34 | XMS_ITS | Clinical Summary ---
Author Organization [facility] Address [address] [place] [address] Care Team Providers Care Envelope Stuffer Name Role Phone Darrick Villela MD Primary Care Provider [phone] Allergies Active Allergy Reactions Criticality Noted Date [...] (2022): Added automatically from request for surgery [id number] Family History Medical History Relation Name Comments [...] [facility]-Abdominal Aortic Aneurys m (AAA) Screening 05/10/2024 [id number] Vaccine ( - 2023- season) 2024 [facility]-Influenza [...] 2:08 PM EST) POCT Hemoglobin A1C 10.9 [facility] 03/08/2019 2:08 PM EST Narrative [facility] - 03/08/2019 2:08 PM EST Resulting Agency - [facility] POC [[facility]] Historical Provider POINT OF CARE TEST ENTER/DEBI T ORDERABLES Final Result Performing Organization Address City/[facility]/ZIP Co de Phone Number [facility] [address] [facility] [address] * Hepatitis C Antibody (06/06/2017 1:06 PM EDT) Pathologist [facility] Hepatitis C Antibody NEGATIVE Reference Range: Negative [facility] 06/06/2017 1:06 PM EDT 06/06/2017 4:32 PM EDT Historical Provider LAB BLOOD ORDERABLES Final R esult [facility] from Last 3 Months or Most Recently Relevant to Health Maintenance Insurance MEDICARE [facility] PRO[facility]ESSIVE Care Teams Envelope Stuffer Relationship Specialty Start Date End Date Darrick Villela MD [address] [place] [address] PCP - General Internal Medicine 06/02/22
--- OUTSIDE RECORDS SUMMARY | 2024-11-26 09:34 | XMS_ITS | Encounter Summary ---
Author Organization [employer] ([place], [place], [place], [place]) Address [address] [place] [address] Care Team Providers Care Oral Health Therapist Name Role Phone Unavailable Primary Care Provider Unavailabl e Reason for Referral * Consultation (Routine) - Closed Specialty Diagnoses / Procedures Referred By Contac t Referred To Contact Psychology / Behavioral Health Diagnoses Chronic pain syndrome Orestes Tello MD [address] [address] [place] [address] Phone: tel: fax: Hellen Crouch, MS [address] [place] [address] Phone: tel: fax: Referral ID Status Reason Start Date Expiration Date V isits Requested Visits Authorized [id number] Closed Specialty Services Required 12/19/2023 12/18/2024 1 1 Encounter Details Date Type Department Care Team (Late st Contact Info) Description 12/19/2023 Outside Orders [facility] Central Scheduling [address] [place] [address] Orestes Tello MD [address] [address] [place] [address] Chronic pain syndrome (Primary Dx) Social History [...] Date Ang rded Speak language other than Irish at home Not on file 12/19/2023 Want [...]
--- OUTSIDE RECORDS SUMMARY | 2024-11-26 09:34 | XMS_ITS | Encounter Summary ---
Author Organization Healthcare Address [address] [place] [address] Care Team Providers Care Melter Clerk Name Role Phone Gudelia Vidal Primary Care Provider [phone] Darrick Villela MD Primary Care Provider [phone] Reason for Visit * Reason Comments Med Refill Encounter Details Date Type Department Care Team (Late st Contact Info) Description 03/29/2021 [facility] [address] [place] [address] Ashly Kang, GIMP TACKER [address] [facility] [address] [place] [address] Social History Tobacco Use Types [...] on filedocumented in this encounter Care Teams Melter Clerk Relationship Specialty Start Date End Date Gudelia Vidal PA [address] [place] [address] PCP - General 07/04/20 06/01/22 Darrick Villela MD [address] [place] [address] PCP - General Internal Medicine 06/02/22 documented as of this encounter
--- OUTSIDE RECORDS SUMMARY | 2024-11-26 09:34 | XMS_ITS | Clinical Summary ---
Author Organization [facility] ([place], [place], [place], [place]) Address [address] [place] [address] Care Team Providers Care Die Equipment Operator Name Role Phone Unavailable Primary Care [...] Date Ang rded Speak language other than Mauritanian at home Not on file 12/19/2023 Want [...]
--- OUTSIDE RECORDS SUMMARY | 2024-11-26 09:34 | XMS_ITS | Encounter Summary ---
Author Organization Healthcare Address [address] [place] [address] Care Team Providers Care Marine Farmer Name Role Phone Gudelia Vidal Primary Care Provider [phone] Darrick Villela MD Primary Care Provider + [phone] Reason for Referral * Consultation (Routine) - Closed Specialty Diagnoses / Procedures Referred By Contac t Referred To Contact Hand Surgery Diagnoses Right hand pain Darrick Villela MD [address] [place] [address] Phone: tel: fax: [facility] [address] [place] [address] Phone: tel: fax: Referral ID Status Reason Start Date Expiration Date V isits Requested Visits Authorized [id number] Closed Specialty Services Required 03/01/2022 08/31/2023 1 1 Encounter Details Date Type Department Care Team (Late st Contact Info) Description 03/01/2022 Community [facility] [address] [place] [address] Darrick Villela MD [facility] [address] [address] Right hand pain (Primary Dx) Social History [...] limb documented in this encounter Care Teams Marine Farmer Relationship Specialty Start Date End Date Gudelia Vidal PA [address] [place] [address] PCP - General 07/04/20 06/01/22 Darrick Villela MD [address] [place] [address] PCP - General Internal Medicine 06/02/22 documented as of this encounter
--- NOTE | 2024-11-27 10:27 | SW/DCPLANNER ---
Spoke with patient's on the phone. Patient's stated that her is doing good. Patient's stated that her was not aware of his upcoming appointments and that the one with the pulm will cancel due to him already seeing one from somewhere else. Patient's stated that they are going today to get his new medicine picked up. Patient's stated that they have no concerns or questions at this time. Everett FARRIS Architectural Inspector
[2024-11-28 21:32] LABS: Body Fluid Culture, Sterile Not indicated. (.); Specimen Source Urine (.)
== END 2024-11-25 11:15 | disposition home or self-care (01) | DRG 871 ==
LOC: ER 16:42 → ICU 18:24 → 2ND 11-24 17:11 → ICU 11-26 09:28
PROVIDERS: Student in an Organized Health Care Education/Training Program; Admitting Provider Internal Medicine Adolescent Medicine; Emergency Provider Student in an Organized Health Care Education/Training Program; PCP Family Medicine; Visit Provider Internal Medicine Adolescent Medicine
DX: A41.9 Sepsis, unspecified organism (principal); I21.A1 Myocardial infarction type 2; J18.9 Pneumonia, unspecified organism; E87.1 Hypo-osmolality and hyponatremia; J91.8 Pleural effusion in other conditions classified elsewhere; J44.0 Chronic obstructive pulmonary disease with (acute) lower respiratory infection; E87.6 Hypokalemia; I10 Essential (primary) hypertension; E11.43 Type 2 diabetes mellitus with diabetic autonomic (poly)neuropathy; E11.69 Type 2 diabetes mellitus with other specified complication; I48.0 Paroxysmal atrial fibrillation; I25.10 Atherosclerotic heart disease of native coronary artery without angina pectoris; E11.65 Type 2 diabetes mellitus with hyperglycemia; F17.210 Nicotine dependence, cigarettes, uncomplicated; F39 Unspecified mood [affective] disorder; T45.516A Underdosing of anticoagulants, initial encounter; Z91.148 Patient's other noncompliance with medication regimen for other reason; Z79.01 Long term (current) use of anticoagulants; Z79.4 Long term (current) use of insulin; Z79.84 Long term (current) use of oral hypoglycemic drugs; Z79.899 Other long term (current) drug therapy; Z88.5 Allergy status to narcotic agent; Z88.6 Allergy status to analgesic agent
CPT/HCPCS: 36415; 71045; 71046; 71275; 80053; 80320; 82009; 82803; 82962; 83605; 83735; 83880; 84484; 85025; 85378; 86803; 87040; 87389; 87631; 87899; 89220; 93005; 99285; G0378; J0456; J0696; J1650; J2543; J7050; J7120; Q9967

== ENCOUNTER 2024-12-03 17:14 | Outpatient (CLI) | payer MEDICARE, SELFPAY ==
[2024-12-03 19:39] LABS: Hematocrit 45.8 % (42.0-52.0); Hemoglobin 14.5 g/dL (14.1-18.0); Immature Granulocytes % 0.5 %; Mean Corpuscular HGB Conc 31.7 g/dL (31.8-35.4); Mean Corpuscular Hemoglobin 28.4 pg (27.0-31.2); Mean Corpuscular Volume 89.6 fl (80-94); Nucleated Red Blood Cells % 0 %; Platelet Count 403 K/mm3 (142-424); Red Blood Count 5.11 M/mm3 (4.60-6.20); Red Cell Distribution Width-SD 50.7 fL; White Blood Count 6.3 K/mm3 (4.8-10.8)
[2024-12-03 20:15] LABS: Alanine Aminotransferase 22 U/L (12-78); Albumin Level 3.6 g/dl (3.5-5.0); Albumin/Globulin Ratio 0.9 (1.1-1.8); Alkaline Phosphatase 76 U/L (38-126); Anion Gap 15.9 mEq/L (5-15); Aspartate Amino Transferase 31 U/L (17-59); Bilirubin,Total 0.5 mg/dl (0.2-1.3); Blood Urea Nitrogen 14 mg/dl (9-20); Calcium 8.8 mg/dl (8.4-10.2); Carbon Dioxide 27 mmol/L (22.0-30.0); Chloride 98 mmol/L (98-107); Creatinine,Serum 1.00 mg/dl (0.66-1.25); Estimated Glomerular Filt Rate 75 ml/min (>60); GFR (African American) 91 ML/MIN (>60); Globulin 3.8 g/dL (1.3-3.2); Glucose 280 mg/dl (74-100); Potassium 4.9 mmoL/L (3.5-5.1); Sodium 136 mmol/L (136-145); Total Protein,Serum 7.4 g/dl (6.3-8.2)
--- OUTSIDE RECORDS SUMMARY | 2024-12-04 17:16 | XMS_ITS | Clinical Summary ---
Author Organization [facility] Address [address] [facility] [address] [place] [address] Phone Care Team Providers Care Shop Laborer Name Role Phone Unavailable Unavailable Conditions or Problems No information available. Medications No information available. Medications Administered No information available. Allergies, Adverse Reactions, Alerts No information available. Results No information available. Plan of Care No information available. Procedures No information available. Vital Signs No information available. Immunizations No information available. Advance Directives No information available.
--- OUTSIDE RECORDS SUMMARY | 2024-12-04 17:16 | XMS_ITS | Clinical Summary ---
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 He was [...] Patient has his new machine from the [employer]. Patient states he really like the new [...] (05/24/2022): Added automatically from request for surgery [id number] Bronchiectasis without acute exacerbation 2021 Centrilobular emphysema 06/12/2021 Cavitating mass in upper lobe of lung 03/05/2021 Overview (03/05/2021): Added automatically from request for surgery [id number] Coronary artery disease invo lving tetlin heart s/p stents x2 03/04/2021 Assessment & [...] risk and benefits -Left heart cath at [facility] - Restart atorvastatin 80 mg once [...] 01/10/2024 9:38 AM EST Plan of Treatment Upcoming Encounters Date Type Department Care Team (Late st Contact Info) Description 12/26/2024 8:45 AM EST Registration [facility] [address] [place] [phone] 12/26/2024 9:00 AM EST Office Visit [facility] [address] [place] [phone] 12/26/2024 9:30 AM EST Office Visit [facility] MEDICINE [address] [place] [phone] Karmen Kumar, RETAIL PRESENTATION SPECIALIST [address] [place] [address] Health Maintenance Due Date Last Done Comments [...] Completed 06/06/2017 Medical Devices Implanted Type Area Filtration Plant Mechanic Device Identifier Shelf Expiration Date Model / Serial / Lot Heart Stents X2 Description:Around 2015 Procedures Procedure Name Priority Date/Time Associated Diagnosis Comments HEMOGLOBIN A1C STAT 01/10/2024 9:56 AM EST from Last 3 Months or Most Recently Relevant to Health Maintenance Results * (ABNORMAL) Hemoglobin A1c (01/10/2024 9:56 AM EST) Hemoglobin A1C 11.50(H) 4.80 - 5.60 % 01/10/2024 10:36 AM EST [facility] Blood Line / Unknown 01/10/2024 9: 56 AM EST 01/10/2024 10:04 AM EST Narrative [facility] - 01/10/2024 10:36 AM EST Hemoglobin A1C Ranges: Increased Risk for Diabetes 5.7% to 6.4% Diabetes >= 6.5% Diabetic Goal < 7.0% Digna Tariq APRN LAB BLOOD ORDERABLES Final Result [facility]
[address] [place] [address], from Last 3 Months or Most Recently Relevant to Health Maintenance Insurance MEDICARE ADVANTAGE Care Teams Paving Rammer Relationship Specialty Start Date End Date Mango Castillo MD [address] [place] [address] PCP - General Family Medicine 04/05/23
--- OUTSIDE RECORDS SUMMARY | 2024-12-04 17:16 | XMS_ITS | Encounter Summary ---
Author Organization Healthcare Address [address] [place] [address] Care Team Providers Care Telephone Lineman Name Role Phone Gudelia Vidal Primary Care Provider [phone] Darrick Villela MD Primary Care Provider + [phone] Reason for Visit * Reason Comments Med Refill Encounter Details Date Type Department Care Team (Late st Contact Info) Description 03/29/2021 [facility] [address] [place] [address] Ashly Kang, CAREER AND GUIDANCE COUNSELOR [address] [facility] [address] [place] [address] Social History Tobacco Use Types [...] on filedocumented in this encounter Care Teams Telephone Lineman Relationship Specialty Start Date End Date Gudelia Vidal PA [address] [place] [address] PCP - General 07/04/20 06/01/22 Darrick Villela MD [address] [place] [address] PCP - General Internal Medicine 06/02/22 documented as of this encounter
--- OUTSIDE RECORDS SUMMARY | 2024-12-04 17:16 | XMS_ITS | Clinical Summary ---
Author Organization [facility] Address [address] [place] [address] Care Team Providers Care Cutter And Paster Press Clippings Name Role Phone Darrick Villela MD Primary Care Provider [phone] Allergies Active Allergy Reactions Criticality Noted Date [...] (2022): Added automatically from request for surgery [id number] Family History Medical History Relation Name Comments [...] [facility]-Abdominal Aortic Aneurys m (AAA) Screening 05/10/2024 [id number] Vaccine ( - 2023- season) 2024 [facility]-Influenza [...] PM EST Resulting Agency - [facility] POC [[facility]] Historical Provider POINT OF CARE TEST ENTER/DEBI T ORDERABLES Final Result Performing Organization Address City/[facility]/ZIP Co de Phone Number [facility] [address] [facility] [address] * Hepatitis C Antibody (06/06/2017 1:06 PM EDT) Pathologist [facility] Hepatitis C Antibody NEGATIVE Reference Range: Negative [facility] 06/06/2017 1:06 PM EDT 06/06/2017 4:32 PM EDT Historical Provider LAB BLOOD ORDERABLES Final R esult SUNQUEST from Last 3 Months or Most Recently Relevant to Health Maintenance Insurance MEDICARE [facility] PROGRESSIVE Care Teams Cutter And Paster Press Clippings Relationship Specialty Start Date End Date Darrick Villela MD [address] [place] [address] PCP - General Internal Medicine 06/02/22
--- OUTSIDE RECORDS SUMMARY | 2024-12-04 17:16 | XMS_ITS | Encounter Summary ---
Author Organization [employer] ([place], [place], [place], [place]) Address [address] [place] [address] Care Team Providers Care Parasitology Teacher Name Role Phone Unavailable Primary Care Provider Unavailabl e Reason for Referral * Consultation (Routine) - Closed Specialty Diagnoses / Procedures Referred By Contac t Referred To Contact Psychology / Behavioral Health Diagnoses Chronic pain syndrome Orestes Tello MD Phone: tel: fax: Hellen Crouch, [place] [address] [place] [address] Phone: tel: fax: Referral ID Status Reason Start Date Expiration Date V isits Requested Visits Authorized [id number] Closed Specialty Services Required 12/19/2023 12/18/2024 1 1 Encounter Details Date Type Department Care Team (Late st Contact Info) Description 12/19/2023 Outside Orders [facility] Central Scheduling [address] [place] [address] Orestes Tello MD [address] [facility] [address] [place] [address] Chronic pain syndrome (Primary Dx) Social History [...] Date Ang rded Speak language other than Namibian at home Not on file 12/19/2023 Want [...]
--- OUTSIDE RECORDS SUMMARY | 2024-12-04 17:16 | XMS_ITS | Clinical Summary ---
Author Organization [employer] ([place], [place], [place], [place]) Address [address] [place] [address] Care Team Providers Care Manager Payroll Name Role Phone Unavailable Primary Care Provider [...] Date Ang rded Speak language other than Palestinian at home Not on file 12/19/2023 Want [...]
--- OUTSIDE RECORDS SUMMARY | 2024-12-04 17:16 | XMS_ITS | Encounter Summary ---
Author Organization Healthcare Address [address] [place] [address] Care Team Providers Care Livestock Auctioneer Name Role Phone Gudelia Vidal Primary Care Provider [phone] Darrick Villela MD Primary Care Provider + [phone] Reason for Referral * Consultation (Routine) - Closed Specialty Diagnoses / Procedures Referred By Contac t Referred To Contact Hand Surgery Diagnoses Right hand pain Darrick Villela MD [address] [place] [address] Phone: tel: fax: [facility] [address] [place] [address] Phone: tel: fax: Referral ID Status Reason Start Date Expiration Date V isits Requested Visits Authorized [id number] Closed Specialty Services Required 03/01/2022 08/31/2023 1 1 Encounter Details Date Type Department Care Team (Late st Contact Info) Description 03/01/2022 Community [facility] Community Practice [address] [place] [address] Darrick Villela MD [facility] [address] [address] Right hand pain (Primary Dx) Social History [...] limb documented in this encounter Care Teams Livestock Auctioneer Relationship Specialty Start Date End Date Gudelia Vidal PA [address] [place] [address] PCP - General 07/04/20 06/01/22 Darrick Villela MD [address] [place] [address] PCP - General Internal Medicine 06/02/22 documented as of this encounter
--- OUTSIDE RECORDS SUMMARY | 2024-12-04 17:16 | XMS_ITS | Referral Summary ---
Author Organization [employer] ([place], [place], [place], [place]) Address [address] [place] [address] Care Team Providers Care Crop Ranch Hand Name Role Phone Unavailable Primary Care Provider [...]
--- OUTSIDE RECORDS SUMMARY | 2024-12-04 17:16 | XMS_ITS | Encounter Summary ---
Author Organization Healthcare Address [address] [place] [address] Care Team Providers Care Risk Control Specialist Name Role Phone Gudelia Vidal Primary Care Provider [phone] Darrick Villela MD Primary Care Provider + [phone] Reason for Visit * Reason Comments Med Refill Encounter Details Date Type Department Care Team (Late st Contact Info) Description 04/01[facility]2021 [facility] [address] [place] [address] Ashly Kang, DRIVER MEDIC [address] [facility] [address] [place] [address] Social History Tobacco Use Types [...] on filedocumented in this encounter Care Teams Risk Control Specialist Relationship Specialty Start Date End Date Gudelia Vidal PA [address] [place] [address] PCP - General 07/04/20 06/01/22 Darrick Villela MD [address] [place] [address] PCP - General Internal Medicine 06/02/22 documented as of this encounter
== END 2024-12-03 23:59 | disposition home or self-care (01) ==
LOC: LAB.DROPOF 12-04 17:14
PROVIDERS: PCP Nurse Practitioner Family; Visit Provider Nurse Practitioner Family
DX: J18.9 Pneumonia, unspecified organism (principal); A41.9 Sepsis, unspecified organism
CPT/HCPCS: 80053; 85025